=== PATIENT | male | born 1930 | race Caucasian/White ===

== ENCOUNTER → 2016-10-23 | Day surgery (SDC) | payer OTHER ==
[~2016-10-23] VITALS: Ht 175.3 cm; Wt 77.1 kg
[~2016-10-23] MED LIST: ACET-654 PO; AMLO5TAB2 PO; ASPI81TA85 PO; BACT400T PO; CARV3.12 PO; FLOM5CAP PO; FURO40TA2 PO; GLIP-163 PO; GLUCAGON FOR INJ 1 MG VIAL (J1610) IV STA; HYDR25TAB PO; ICAPCAP PO; LEVO25TA5 PO; LISI-542 PO; LR 1,000 ML IV SCH; LYRI100C10 PO; METF500T PO; NORCO, ANEXSIA 5/325MG TABLET (HYDROcodone/ACETAMINOPHEN) PO PRN; OMEP40CA2 PO; ONDANSETRON 4MG/2ML VIAL (J2405) IV PRN; PANTOPRAZOLE 40MG INJ (PROTONIX) (C9113) IV SCH; PLAV75TA38 PO; PRAV1TAB39 PO; PROPOFOL 200 MG/20 ML VIAL As Ordered ONE; ROCURONIUM BROMIDE 50 MG/5 ML VIAL As Ordered ONE; SUCCINYLCHOLINE 100 MG/5 ML SYRINGE (J0330) As Ordered ONE; TAMS0.4C2 PO; fentaNYL 100 MCG/2 ML INJECTION (J3010) As Ordered ONE
[2016-10-23 13:37] LABS: BASO # 0.1 K/mm3 (0.0-0.2); BASO % 0.7 % (0.0-1.0); EOS # 0.2 K/mm3 (0.0-0.50); EOS % 1.8 % (0.0-3.0); LARGE UNSTAINED CELL # 0.1 K/mm3 (0.0-0.4); LARGE UNSTAINED CELL % 1.6 % (0.0-4.0); LYMPH # 0.8 K/mm3 (1.5-4.5); LYMPH % 8.8 % (24.0-44.0); MEAN CORPUSCULAR HEMOGLOBIN 30.4 pg (27.0-33.0); MEAN CORPUSCULAR HGB CONC 33.5 g/dl (32.0-36.5); MEAN CORPUSCULAR VOLUME 90.7 fl (80.0-96.0); MONO # 0.5 K/mm3 (0.0-0.8); MONO % 5.7 % (0.0-5.0); NEUTROPHILS # 7.4 K/mm3 (1.8-7.7); NEUTROPHILS % 81.5 % (36.0-66.0); PLATELET COUNT, AUTOMATED 234 k/mm3 (150-450); RED CELL DISTRIBUTION WIDTH 13.7 % (11.5-14.5)
[2016-10-23 14:08] LABS: CALCIUM LEVEL 8.9 MG/DL (8.8-10.2); CREATININE FOR GFR 1.38 MG/DL (0.70-1.30); GLOMERULAR FILTRATION RATE 52.1 (>35); POTASSIUM SERUM 3.9 MEQ/L (3.5-5.1)
--- NOTE | 2016-10-23 19:27 | ROOR ---
Patient Name: Juan Carlos Reynoso Procedure Date: 10/23/2016 6:13 PM Date of : 1930 Age: 86 Gender: Male Note Status: Finalized Procedure: Upper GI endoscopy Indications: Foreign body in the esophagus Providers: Dragan Catalan Jr, MD Referring MD: Ronan Boyle MD Requesting Provider: Medicines: General Anesthesia Complications: No immediate complications. Procedure: Pre-Anesthesia Assessment: - Prior to the procedure, a History and Physical was performed, and patient medications and allergies were reviewed. The patient is competent. The risks and benefits of the procedure and the sedation options and risks were discussed with the patient. All questions were answered and informed consent was obtained. Patient identification and proposed procedure were verified by the physician and the nurse in the pre-procedure area and in the procedure room. Mental Status Examination: alert and oriented. Airway Examination: normal oropharyngeal airway and neck mobility. Respiratory Examination: clear to auscultation. CV Examination: normal. ASA Grade Assessment: II - A patient with mild systemic disease. After reviewing the risks and benefits, the patient was deemed in satisfactory condition to undergo the procedure. The anesthesia plan was to use moderate sedation / analgesia (conscious sedation). Immediately prior to administration of medications, the patient was re-assessed for adequacy to receive sedatives. The heart rate, respiratory rate, oxygen saturations, blood pressure, adequacy of pulmonary ventilation, and response to care were monitored throughout the procedure. The physical status of the patient was re-assessed after the procedure. The Endoscope was introduced through the mouth, and advanced to the duodenal bulb. The upper GI endoscopy was accomplished without difficulty. The patient tolerated the procedure well. Findings: The upper third of the esophagus and middle third of the esophagus were normal. Food was found at the gastroesophageal junction. Removal of food was accomplished. Many superficial esophageal ulcers with no bleeding were found in the distal esophagus. The gastric fundus, gastric body, gastric antrum, prepyloric region of the stomach and pylorus were normal. Few non-bleeding superficial duodenal ulcers were found in the duodenal bulb. Impression: - Normal upper third of esophagus and middle third of esophagus. - Food at the gastroesophageal junction. Removal was successful. - Non-bleeding esophageal ulcers. - Normal gastric fundus, gastric body, antrum, prepyloric region of the stomach and pylorus. - Multiple non-bleeding duodenal ulcers. Recommendation: - Discharge patient to home (ambulatory). - Return to my office in 1 week. Dragan Catalan MD Dragan Catalan Jr, MD 10/23/2016 7:27:16 PM This report has been signed electronically. Number of Addenda: 0 Note Initiated On: 10/23/2016 6:13 PM Estimated Blood Loss: Estimated blood loss was minimal.
[2016-10-23 21:10] VITALS: BP 190/86
== END | disposition home or self-care (01) ==
LOC: M ED 13:42 → M SDC 18:14
PROVIDERS: ATTEND Surgery
DX: T18.128A Food in esophagus causing other injury, initial encounter (principal); X58.XXXA Exposure to other specified factors, initial encounter; Y92.89 Other specified places as the place of occurrence of the external cause; K22.10 Ulcer of esophagus without bleeding; K26.9 Duodenal ulcer, unspecified as acute or chronic, without hemorrhage or perforation; I25.10 Atherosclerotic heart disease of native coronary artery without angina pectoris; I10 Essential (primary) hypertension; E11.9 Type 2 diabetes mellitus without complications; E07.9 Disorder of thyroid, unspecified; I73.9 Peripheral vascular disease, unspecified; G62.9 Polyneuropathy, unspecified; E78.5 Hyperlipidemia, unspecified; Z88.8 Allergy status to other drugs, medicaments and biological substances; Z79.899 Other long term (current) drug therapy; Z79.02 Long term (current) use of antithrombotics/antiplatelets; Z79.82 Long term (current) use of aspirin; Z87.891 Personal history of nicotine dependence
CPT/HCPCS: 43247; 80048; 85025; 96374; 99284; J0330; J1610; J3010

== ENCOUNTER → 2020-02-07 | Outpatient (CLI) | payer MEDICARE ==
[~2020-02-07] MED LIST changes: -ACET-654 PO; +ACET1TAB55 PO; +AMLO1TAB24 PO; -AMLO5TAB2 PO; -ASPI81TA85 PO; +ASPI81TA86 PO; +CEPH500C PO; +CLOP75TA2 PO; +DOXY100C PO; +FLAG500T PO; +FLOM0.4C39 PO; -FLOM5CAP PO; +GLIP-162 PO; -GLUCAGON FOR INJ 1 MG VIAL (J1610) IV STA; +HYDR-2541 PO; +HYDR-3715 PO; -HYDR25TAB PO; -LR 1,000 ML IV SCH; -LYRI100C10 PO; +MED REC COMMENT; -METF500T PO; +METF500T13 PO; -NORCO, ANEXSIA 5/325MG TABLET (HYDROcodone/ACETAMINOPHEN) PO PRN; -OMEP40CA2 PO; +OMEP40CA97 PO; -ONDANSETRON 4MG/2ML VIAL (J2405) IV PRN; -PANTOPRAZOLE 40MG INJ (PROTONIX) (C9113) IV SCH; +PLAV1TAB2 PO; -PLAV75TA38 PO; +PREG100CA PO; -PROPOFOL 200 MG/20 ML VIAL As Ordered ONE; -ROCURONIUM BROMIDE 50 MG/5 ML VIAL As Ordered ONE; +SERT25TA85 PO; -SUCCINYLCHOLINE 100 MG/5 ML SYRINGE (J0330) As Ordered ONE; +SYNT50TA PO; +XARE2.5T PO; -fentaNYL 100 MCG/2 ML INJECTION (J3010) As Ordered ONE
[2020-02-21 10:14] LABS: BASO # 0.1 10^3/uL (0.0-0.2); BASO % 0.7 % (0.0-1.0); EOS # 0.4 10^3/uL (0.0-0.5); EOS % 6.1 % (0.0-3.0); HEMOGLOBIN 13.4 g/dl (13.5-17.5); LYMPH % 13.9 % (24.0-44.0); MEAN CORPUSCULAR HEMOGLOBIN 29.3 pg (27.0-33.0); MEAN CORPUSCULAR HGB CONC 32.7 g/dl (32.0-36.5); MEAN CORPUSCULAR VOLUME 89.7 fl (80.0-96.0); MONO # 0.7 10^3/uL (0.0-0.8); MONO % 9.8 % (0.0-5.0); NEUTROPHILS % 68.9 % (36.0-66.0); PLATELET COUNT, AUTOMATED 234 10^3/uL (150-450); RED BLOOD COUNT 4.57 10^6/uL (4.30-6.10); WHITE BLOOD COUNT 7.3 10^3/uL (4.0-10.0)
[2020-02-21 10:15] LABS: PROTHROMBIN TIME 13.6 SECONDS (11.8-14.0)
[2020-02-21 10:16] LABS: INR 1.02; PARTIAL THROMBOPLASTIN TIME 49.3 SECONDS (25.0-38.4)
[2020-03-05 21:29] LABS: CREATININE FOR GFR 1.29 MG/DL (0.70-1.30); POTASSIUM SERUM 4.2 MEQ/L (3.5-5.1)
== END ==
LOC: M LAB 14:25
PROVIDERS: ATTEND Surgery Vascular Surgery
DX: Z01.818 Encounter for other preprocedural examination (principal); I70.211 Atherosclerosis of native arteries of extremities with intermittent claudication, right leg; D69.8 Other specified hemorrhagic conditions

== ENCOUNTER 2020-03-24 13:22 | Inpatient (IN) | payer MEDICARE ==
[~2020-03-24] VITALS: Ht 175.3 cm; Wt 71.4 kg
[~2020-03-24 13:22] MED LIST changes: -CEPH500C PO; -CLOP75TA2 PO; -DOXY100C PO; -FLAG500T PO; -GLIP-162 PO; -HYDR-3715 PO; -MED REC COMMENT; -SERT25TA85 PO; -SYNT50TA PO; -XARE2.5T PO
[2020-03-24] MEDS ORDERED: NS 1,000 ML IV SCH (13:54)
--- NOTE | 2020-03-24 14:10 | REPVR ---
PROCEDURE INFORMATION: Exam: XR Chest, 1 View Exam date and time: 03/24/2020 1:38 PM Age: 89 years old Clinical indication: Dyspnea; Additional info: Weakness TECHNIQUE: Imaging protocol: XR of the chest Views: 1 view. COMPARISON: No relevant prior studies available. FINDINGS: Lungs: Unremarkable. No consolidation. Pleural space: Unremarkable. No pleural effusion. No pneumothorax. Heart/Mediastinum: Unremarkable. No cardiomegaly. Bones/joints: Unremarkable. Soft tissues: There is a small nipple shadow on the right. IMPRESSION: No acute findings. Electronically signed by: Yovany Alcala On 03/24/2020 14:10:24 PM
[2020-03-24 14:24] LABS: HEMATOCRIT 40.4 % (42.0-52.0); HEMOGLOBIN 12.7 g/dl (13.5-17.5); MEAN CORPUSCULAR HEMOGLOBIN 26.8 pg (27.0-33.0); MEAN CORPUSCULAR HGB CONC 31.4 g/dl (32.0-36.5); MEAN CORPUSCULAR VOLUME 85.2 fl (80.0-96.0); PLATELET COUNT, AUTOMATED 254 10^3/uL (150-450); RED BLOOD COUNT 4.74 10^6/uL (4.30-6.10); WHITE BLOOD COUNT 3.7 10^3/uL (4.0-10.0)
--- NOTE | 2020-03-24 14:30 | REPVR ---
PROCEDURE INFORMATION: Exam: CT Head Without Contrast Exam date and time: 03/24/2020 2:16 PM Age: 89 years old Clinical indication: Other: General weakness TECHNIQUE: Imaging protocol: Computed tomography of the head without contrast. Radiation optimization: All CT scans at this facility use at least one of these dose optimization techniques: automated exposure control; mA and/or kV adjustment per patient size (includes targeted exams where dose is matched to clinical indication); or iterative reconstruction. COMPARISON: No relevant prior studies available. FINDINGS: Brain: There is moderate central and cortical atrophy and mild small vessel ischemic disease. There is no intracranial hemorrhage. Cerebral ventricles: No ventriculomegaly. Bones/joints: Unremarkable. No acute fracture. Paranasal sinuses: Visualized sinuses are unremarkable. No fluid levels. Mastoid air cells: Visualized mastoid air cells are well aerated. Soft tissues: Unremarkable. IMPRESSION: No acute intracranial abnormality. Electronically signed by: Yovany Alcala On 03/24/2020 14:30:20 PM
[2020-03-24 14:34] LABS: INR 1.31; PARTIAL THROMBOPLASTIN TIME 31.2 SECONDS (24.2-38.5); PROTHROMBIN TIME 16.6 SECONDS (12.5-14.3)
[2020-03-24 14:57] LABS: ALBUMIN 2.2 GM/DL (3.2-5.2); ALT/SGPT 77 U/L (12-78); ANISOCYTOSIS 1+; ATYPICAL LYMPH 2 % (0-5); BILIRUBIN,DIRECT 0.5 MG/DL (0.0-0.2); BILIRUBIN,TOTAL 0.9 MG/DL (0.2-1.0); BLOOD UREA NITROGEN 50 MG/DL (7-18); CALCIUM LEVEL 8.9 MG/DL (8.8-10.2); CARBON DIOXIDE LEVEL 32 MEQ/L (21-32); CHLORIDE LEVEL 92 MEQ/L (98-107); CK-MB VALUE MASS 1.2 NG/ML (<3.6); CPK CREATINE PHOSPHOKINASE 84 U/L (39-308); CREATININE FOR GFR 1.54 MG/DL (0.70-1.30); FREE T4 1.45 NG/DL (0.76-1.46); GLOMERULAR FILTRATION RATE 45.6 (>35); GLUCOSE, FASTING 390 MG/DL (70-100); LIPASE 61 U/L (73-393); LYMPHOCYTES 9 % (16-44); MB/CK RELATIVE INDEX 1.43 (< OR =4); MONOCYTES 3 % (0-5); NEUTROPHILS 83 % (28-66); NT-PRO BNP 4723 PG/ML (<450); POTASSIUM SERUM 3.5 MEQ/L (3.5-5.1); SODIUM LEVEL 136 MEQ/L (136-145); THYROID STIMULATING HORMONE 0.528 uIU/ML (0.358-3.740); TOTAL PROTEIN 6.2 GM/DL (6.4-8.2); TOXIC VACUOLATION 1+; TROPONIN I < 0.02 NG/ML (< 0.10)
[2020-03-24 14:58] LABS: PLATELET ESTIMATE NORMAL (NORMAL)
[2020-03-24] MEDS ORDERED: ACETAMINOPHEN TAB 650MG DOSE (2X325MG) PO ONE (15:45)
[2020-03-24] MEDS ORDERED: CEFEPIME HCL 2 GM in D5W MINI-BAG PLUS 50 ML IV ONE (16:30)
[2020-03-24] MEDS ORDERED: IBUPROFEN 600MG TAB PO ONE (17:30)
[2020-03-24] MEDS ORDERED: NS 2,350 ML in IV 1 EA IV ONE (17:30)
[2020-03-24] MEDS ORDERED: GLUCOSE 4GM CHEW TABLET PO PRN (18:15)
[2020-03-24] MEDS: NS 1,000 ML IV SCH (18:15)
[2020-03-24] MEDS ORDERED: GLUCAGON INJ 1MG VIAL SC PRN (18:15)
[2020-03-24] MEDS ORDERED: DEXTROSE 50% 50 ML SYRINGE IV PRN (18:15)
[2020-03-24] MEDS ORDERED: SYNT50TA PO (18:24)
[2020-03-24] MEDS ORDERED: CLOP75TA2 PO (18:24)
[2020-03-24] MEDS ORDERED: DOXY100C PO (18:24)
[2020-03-24] MEDS ORDERED: XARE2.5T PO (18:24)
[2020-03-24] MEDS ORDERED: MED REC COMMENT (18:25)
--- NOTE | 2020-03-24 18:40 | HPEPDOC ---
[facility] Medical History & Physical Date of Admission Mar 24, 2020 Date of Service: Mar 24, 2020 History and Physical Juan Carlos Reynoso Chief complaint: Who presented to the hospital after expressing 3-4 days of aches and pains History of present illness: Patient is an 89-year-old male with a PMHx of HTN, NIDDM2, PVD (s/p RLE femoral-popliteal bypass), Hx of Chronic RLE digit necrosis, DLP, Hypothyroidism, Neuropathy, BPH, GERD who presented to the hospital after expressing 3-4 days of aches and pains all over his body. Patient denies any chest pain, shortness of breath, palpitations, nausea, vomiting, abdominal pain, constipation, diarrhea or discomfort with urination. He does report a cough with some sputum production. In the emergency room, patient was found to be hypotensive, tachycardic, febrile, and leukopenic. Hospital services called for further evaluation. Denies any changes in weight or appetite Past Medical History: HTN, NIDDM2, PVD (s/p RLE femoral-popliteal bypass), Hx of Chronic RLE digit necrosis, DLP, Hypothyroidism, Neuropathy, BPH, GERD Past Surgical History: Patient reports that his only surgery was femoral-popliteal bypass completed approximately 2 weeks ago across hospital; Dr. Mcdermott Allergies: See below Medications: See below Family History: - Father with a history of lung cancer, bladder cancer, throat cancer Social History: - Denies the use of alcohol or illicit drugs; patient reports that he quit smoking several years ago, was a smoker of 25 years - Denies recent travel or sick contacts - Lives alone, - Occupation; she reports that he used to work at a [employer] Review of Systems: 10 point review of systems complete, all negative otherwise stated in HPI Physical exam: - Vitals: BP [96/55], HR [90], RR [26], Sat [96%RA], Temp [103.5] - General: Lying in bed, Speaking in full sentences, AAOx3 - HEENT: NC, AT, PERRLA - CVS: Tachycardic, +S1S2 - Lungs: Fair air entry bilaterally, No appreciable wheezing / rales / rhonchi - Abdomen: Soft, Non-distended, Non-tender - Extremities: No calf tenderness, right leg with incision on medial aspect of calf, right foot, first, second digit necrosis - Neuro: No focal motor or sensory deficit Assessment and Plan: Sepsis - likely 2/2 Cellulitis/osteomyelitis of RLE - Patient reports that he has had a recent vascular intervention across hospital 2 weeks ago - Patient and daughters have refused transfer to [facility] for further intervention - In the ER, patient was hypotensive, tachycardic and febrile with a T-max of 103.5 - Physical reveals necrosis of the right foot, first and second digit; report a chronic; surrounding erythema, warmth and odor - UA negative - CXR 03/24: No acute findings. - Will check blood cultures, wound cultures, pro-calcitonin lactic acid - Will place patient in ICU - Will start aggressive IV fluid hydration and broad-spectrum antibiotics with vancomycin and Zosyn - Discussed case with podiatry, Dr. Wayne; will be on consultation Reginaldo smiley with RVR - In the emergency room, patient was found to have an elevated heart rate - EKG consistent with atrial fibrillation with RVR, heart rate of 105 - Troponin x1 negative; will continue to trend - Will continue telemetry monitoring - Patients rate has improved with IV fluid hydration - Will start full into regulation with Lovenox, renally adjusted HTN - Patients hypotensive emergency room - Will hold home blood pressure medications; Carvedilol and amlodipine - c/w IV fluid hydration NIDDM2 - Will start ISS PVD (s/p RLE femoral-popliteal bypass) - c/w Plavix; Will hold Xarelto 2.5 mg daily DLP - c/w Pravastatin Hypothyroidism - c/w Levothyroxine Neuropathy - c/w Lyrica BPH - c/w Tamsulosin GI prophylaxis / GERD - Will start Protonix DVT prophylaxis - Will start renal dosed Lovenox (re: Reginaldo smiley) Code status: - DNR / DNI Disposition: - Discuss case with daughter/healthcare proxy Lory Hamilton [phone]; I have updated her about her care plan, addressed all her questions and concerns Critical care time spent; 65 minutes Vital Signs Vital Signs Date Time Temp Pulse Resp B/P (MAP) Pulse Ox O2 Delivery O2 Flow Rate FiO2 03/24/20 18:09 36 03/24/20 18:06 96/55 (69) 03/24/20 17:45 90 03/24/20 17:14 102.5 03/24/20 15:41 36 Room Air Laboratory Data Labs 24H Laboratory Tests 2 03/24/20 14:08: Immature Granulocyte % (Auto) , Neutrophils (%) (Auto) , Nucleated Red Blood Cells % (auto) 0.0, Neutrophils 83H, Band Neutrophils 3, Lymphocytes (Manual) 9L, Monocytes (Manual) 3, Atypical Lymphocytes 2, Red Blood Cell Morphology , Anisocytosis 1+, Toxic Vacuolation 1+, Platelet Estimate NORMAL, Prothrombin Time 16.6H, Prothromb Time International Ratio 1.31, Activated Partial Thromboplast Time 31.2, Anion Gap 12, Glomerular Filtration Rate 45.6, Calcium Level 8.9, Total Bilirubin 0.9, Direct Bilirubin 0.5H, Aspartate Amino Transf (AST/SGOT) 53H, Alanine Aminotransferase (ALT/SGPT) 77, Alkaline Phosphatase 179H, Total Creatine Kinase 84, Creatine Kinase MB 1.2, Creatine Kinase MB Relative Index 1.43, Troponin I < 0.02, PK-Ons-F-Type Natriuretic Peptide 4723H, Total Protein 6.2L, Albumin 2.2L, Albumin/Globulin Ratio 0.6, Lipase 61L, Thyroid Stimulating Hormone (TSH) 0.528, Free Thyroxine 1.45 03/24/20 15:27: Urine Color YELLOW, Urine Appearance HAZY, Urine pH 5.0, Urine Specific [place] 1.009, Urine Protein 1+H, Urine Glucose (UA) 3+H, Urine Ketones NEGATIVE, Urine Blood 1+H, Urine Nitrite NEGATIVE, Urine Bilirubin NEGATIVE, Urine Urobilinogen 0.2, Urine Leukocyte Esterase NEGATIVE, Urine WBC (Auto) 2, Urine RBC (Auto) 3, Urine Hyaline Casts (Auto) 0, Urine Bacteria (Auto) NEGATIVE, Urine Squamous Epithelial Cells 0, Urine Amorphous Sediment SMALLH, Urine Mucus (Auto) SMALL, Urine Sperm (Auto) CBC/BMP Laboratory Tests 03/24/20 14:08 Microbiology Microbiology 03/24/20 Gram Stain - Final, Resulted 03/24/20 Wound Culture, Resulted Pending 03/24/20 Blood Culture, Received Pending Home Medications Scheduled Amlodipine Besylate (Amlodipine Besylate) 5 Mg Tab, 5 MG PO DAILY Carvedilol (Carvedilol) 3.125 Mg Tab, 3.125 MG PO BID Clopidogrel Bisulfate (Clopidogrel) 75 Mg Tablet, 75 MG PO DAILY Doxycycline Hyclate (Doxycycline Hyclate) 100 Mg Capsule, 100 MG PO BID FOR 10 DAYS, FILLED 03/19 Furosemide (Furosemide) 40 Mg Tab, 40 MG PO DAILY Glipizide (Glipizide Xl) 2.5 Mg Tab, 2.5 MG PO DAILY Levothyroxine Sodium (Synthroid) 50 Mcg Tablet, 50 MCG PO DAILY Pravastatin Sodium (Pravachol) 20 Mg Tab, 20 MG PO QHS Pregabalin (Lyrica) 100 Mg Cap, 100 MG PO TID Rivaroxaban (Xarelto) 2.5 Mg Tablet, 2.5 MG PO BID Tamsulosin HCl (Flomax) 0.4 Mg Cap, 0.8 MG PO DAILY Scheduled PRN Acetaminophen (Acetaminophen) 325 Mg Tab, 650 MG PO Q6H PRN for PAIN Miscellaneous Medications [Med Rec Comment] LIST OBTAINED FROM PHARMACY, PT STATES HE TOOK ALL OF HIS MEDS THIS MORNING Allergies Coded Allergies: Unclassified (Verified Adverse Reaction, Mild, legs ache, 03/24/20) patient unsure of what allergies he has ZORAIDA MARTINEZ MD Mar 24, 2020 18:40
[2020-03-24 21:27] LABS: CK-MB VALUE MASS < 1.0 NG/ML (<3.6); CPK CREATINE PHOSPHOKINASE 51 U/L (39-308); MB/CK RELATIVE INDEX 1.96 (< OR =4); TROPONIN I 0.03 NG/ML (< 0.10)
[2020-03-24 21:59] VITALS: BP 126/60
[2020-03-24] MEDS: HumaLOG INSULIN (NovoLOG) PER UNIT SC SCH (22:38)
[2020-03-24] MEDS: ENOXAPARIN 80MG/0.8ML SYRINGE (J1650 PER 10MG) SC SCH (22:38)
[2020-03-24] MEDS: PIPERACILLIN/TAZOBACTAM SOD 3.375 GM in D5W MINI-BAG PLUS 50 ML IV SCH (22:39)
[2020-03-24] MEDS: PRAVASTATIN 20 MG TAB PO SCH (22:39)
[2020-03-24] MEDS: PREGABALIN 100 MG CAP (LYRICA) PO SCH (22:39)
[2020-03-24 23:00] VITALS: BP 105/51
[2020-03-25] VITALS (13 sets, daily range): BP systolic 91–126; BP diastolic 48–59
[2020-03-25] MEDS ORDERED: VANCOMYCIN HCL 750 MG, VIAL MATE ADAPTER 1 EACH in D5W 250 ML IV ONE ×4 (01:00)
[2020-03-25] MEDS: NS 1,000 ML IV SCH (01:40)
[2020-03-25 03:30] LABS: CK-MB VALUE MASS < 1.0 NG/ML (<3.6); CPK CREATINE PHOSPHOKINASE 39 U/L (39-308); MB/CK RELATIVE INDEX 2.56 (< OR =4); TROPONIN I 0.02 NG/ML (< 0.10)
[2020-03-25 04:43] LABS: HEMATOCRIT 31.6 % (42.0-52.0); MEAN CORPUSCULAR HEMOGLOBIN 27.8 pg (27.0-33.0); MEAN CORPUSCULAR HGB CONC 32.6 g/dl (32.0-36.5); MEAN CORPUSCULAR VOLUME 85.4 fl (80.0-96.0); WHITE BLOOD COUNT 11.6 10^3/uL (4.0-10.0)
[2020-03-25 04:53] LABS: HEMOGLOBIN 10.3 g/dl (13.5-17.5); PLATELET COUNT, AUTOMATED 144 10^3/uL (150-450)
[2020-03-25 05:08] LABS: LYMPHOCYTES 6 % (16-44); METAMYELOCYTES 1 % (0-0); MONOCYTES 2 % (0-5); NEUTROPHILS 91 % (28-66)
[2020-03-25 05:09] LABS: PLATELET ESTIMATE NORMAL (NORMAL)
[2020-03-25 05:11] LABS: ANISOCYTOSIS 1+; OVALOCYTES 1+
[2020-03-25] MEDS: PIPERACILLIN/TAZOBACTAM SOD 3.375 GM in D5W MINI-BAG PLUS 50 ML IV SCH ×4 (05:23→22:24)
[2020-03-25 05:32] LABS: ALBUMIN 1.5 GM/DL (3.2-5.2); ALT/SGPT 53 U/L (12-78); BILIRUBIN,TOTAL 0.8 MG/DL (0.2-1.0); BLOOD UREA NITROGEN 48 MG/DL (7-18); CALCIUM LEVEL 7.2 MG/DL (8.8-10.2); CARBON DIOXIDE LEVEL 29 MEQ/L (21-32); CHLORIDE LEVEL 103 MEQ/L (98-107); CREATININE FOR GFR 1.18 MG/DL (0.70-1.30); GLOMERULAR FILTRATION RATE > 60.0 (>35); GLUCOSE, FASTING 413 MG/DL (70-100); MAGNESIUM LEVEL 1.9 MG/DL (1.8-2.4); POTASSIUM SERUM 2.6 MEQ/L (3.5-5.1); SODIUM LEVEL 140 MEQ/L (136-145); TOTAL PROTEIN 4.4 GM/DL (6.4-8.2)
[2020-03-25] MEDS ORDERED: HumaLOG INSULIN (NovoLOG) PER UNIT SC ONE (06:00)
[2020-03-25] MEDS ORDERED: KCL 10MEQ/100ML SWI (KRUN) 10 MEQ in IV 1 EA IV SCH (06:00)
[2020-03-25] MEDS: LEVOTHYROXINE 50MCG TABLET (0.05MG) PO SCH (06:07)
[2020-03-25] MEDS ORDERED: POTASSIUM CHLORIDE 10 MEQ SR TABLET PO ONE ×3 (08:00→16:00)
--- NOTE | 2020-03-25 08:59 | IPNPDOC ---
Text Note Date of Service The patient was seen on 03/25/20. NOTE Subjective: Patient is an 89-year-old male with a PMHx of HTN, NIDDM2, PVD (s/p RLE femoral-popliteal bypass), Hx of Chronic RLE digit necrosis, DLP, Hy pothyroidism, Neuropathy, BPH, GERD who presented to the hospital after experiencing 3-4 days of aches and pains all over his body. Patient was admitted to the hospital service for suspected sepsis secondary to his right lower extremities cellulitis/osteomyelitis. Patient has had first digit necrosis / gangrene. Patient was seen and examined at the bedside. Currently patient reports that he feels fine. Denies any nausea, vomiting, chest pain, shortness breath, palpitations, abdominal pain, diarrhea, or urinary discomfort. Patient reports that he doesn't have much sensation of his right foot. Objective: Vitals (See below) General: Lying in bed, comfortable, AAOx3 HEENT: NC, AT CVS: +S1S2 Lungs: Fair air entry b/l, no appreciable wheezing, rhonchi or rales Abdomen: Soft, nondistended, nontender Extremities: No evidence of edema, - Calf tenderness, right first digit dry gangrene surrounding erythema, warmth and odor Assessment and plan: Sepsis - likely 2/2 Cellulitis/osteomyelitis / Gangrene of R foot 1st digit of RLE - Clinically patient reports that he's feeling better than he did yesterday - Patient and daughters had refused transfer to [facility] for further intervention (recent intervention 2 weeks ago) - Hemodynamically stable / patient has remained afebrile over the last 12 hours - UA negative - Patient has leukocytosis with neutrophil predominance - Lactic acidosis resolved - CXR 03/24: No acute findings. - Blood cultures 03/24: Pending; Wound cultures 03/24: No growth - PCT pending - c/w Normal saline and broad-spectrum antibiotics with vancomycin and Zosyn (Day #2) - Podiatry, Dr. Wayne on consultation; will be taken to OR today for amputation of RLE first digit and possible metatarsal - Will downgrade patient to PCU s/p A. fib with RVR - Upon presentation, patient had an elevated heart rate in the emergency room - Troponin trend 3, has remained negative - EKG consistent with atrial fibrillation with RVR, heart rate of 105 - ECHO complete; report pending - c/w telemetry monitoring - Rate improved without medications - c/w Lovenox, renally adjusted therapeutic dosing s/p Lactic acidosis - Will check lactic acid this morning Hypokalemia - Will supplement via PO route HTN - Patients hypotensive emergency room - Will hold home blood pressure medications; Carvedilol and amlodipine - c/w IV fluid hydration NIDDM2 with Hyperglycemia - c/w ISS - Will add Levemir PVD (s/p RLE femoral-popliteal bypass) - c/w Plavix; Will hold Xarelto 2.5 mg daily - c/w Lovenox DLP - c/w Pravastatin Hypothyroidism - c/w Levothyroxine Neuropathy - c/w Lyrica BPH - c/w Tamsulosin GI prophylaxis / GERD - c/w Protonix DVT prophylaxis - c/w Lovenox therapeutic (re: Reginaldo smiley) Code status: - DNR / DNI Disposition: - Daughter/healthcare proxy Lory Hamilton [phone] VS,Carolyne, I+O VS, Fishbone, I+O Laboratory Tests 03/24/20 14:08 03/25/20 04:22 Vital Signs Date Time Temp Pulse Resp B/P (MAP) Pulse Ox O2 Delivery O2 Flow Rate FiO2 03/25/20 06:00 69 94/53 (67) 95 Room Air 03/25/20 04:00 98.2 18 I&O- Last 24 Hours up to 6 AM 03/25/20 06:00 Intake Total 3605 ml Output Total 800 ml Balance 2805 ml ZORAIDA MARTINEZ MD Mar 25, 2020 08:59
[2020-03-25] MEDS: PREGABALIN 100 MG CAP (LYRICA) PO SCH ×3 (09:18→22:23)
[2020-03-25] MEDS: CLOPIDOGREL 75 MG TAB PO SCH (09:18)
[2020-03-25] MEDS: TAMSULOSIN 0.4 MG CAP PO SCH (09:18)
[2020-03-25] MEDS: LEVEMIR (INSULIN DETEMIR) 1 UNITS/0.01ML SC SCH ×2 (09:19→22:23)
[2020-03-25] MEDS: KCL 40MEQ in NS 1000ML 1,000 ML IV SCH ×2 (09:20→18:52)
[2020-03-25] MEDS: HumaLOG INSULIN (NovoLOG) PER UNIT SC SCH ×4 (09:20→22:22)
[2020-03-25] MEDS ORDERED: NS 1,000 ML IV ONE (10:45)
[2020-03-25 11:08] LABS: HEMOGLOBIN A1c 7.4 %
[2020-03-25] MEDS: ACETAMINOPHEN TAB 650MG DOSE (2X325MG) PO PRN ×3 (11:11→22:31)
[2020-03-25] MEDS: VANCOMYCIN HCL 1,000 MG, VIAL MATE ADAPTER 1 EACH in D5W 250 ML IV SCH (13:40)
[2020-03-25 14:29] LABS: HEMATOCRIT 30.6 % (42.0-52.0); MEAN CORPUSCULAR HEMOGLOBIN 27.9 pg (27.0-33.0); MEAN CORPUSCULAR HGB CONC 32.7 g/dl (32.0-36.5); MEAN CORPUSCULAR VOLUME 85.2 fl (80.0-96.0); PLATELET COUNT, AUTOMATED 126 10^3/uL (150-450); RED BLOOD COUNT 3.59 10^6/uL (4.30-6.10); WHITE BLOOD COUNT 11.5 10^3/uL (4.0-10.0)
[2020-03-25 14:50] LABS: BLOOD UREA NITROGEN 45 MG/DL (7-18); CALCIUM LEVEL 7.3 MG/DL (8.8-10.2); CARBON DIOXIDE LEVEL 28 MEQ/L (21-32); CHLORIDE LEVEL 107 MEQ/L (98-107); CREATININE FOR GFR 1.13 MG/DL (0.70-1.30); GLOMERULAR FILTRATION RATE > 60.0 (>35); GLUCOSE, FASTING 231 MG/DL (70-100); POTASSIUM SERUM 3.2 MEQ/L (3.5-5.1); SODIUM LEVEL 141 MEQ/L (136-145)
--- NOTE | 2020-03-25 15:01 | CR ---
DATE OF CONSULTATION: 03/25/2020 CHIEF COMPLAINT: An 89-year-old white male, seen for evaluation of a necrotic big toe on his left foot. Patient complains of diffuse pain and achiness the last few days. Patient was subsequently admitted to [facility] and is seen for evaluation. PAST MEDICAL HISTORY: 1. Hypertension. 2. Eqj-ipfqkvh-sezijdxjz diabetes mellitus. 3. Peripheral arterial disease. 4. Status post femoral-popliteal bypass on the right side. 5. 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 6. Hypothyroidism. 7. Diabetic neuropathy. 8. Benign prostatic hypertrophy. 9. Gastroesophageal reflux disease. PAST SURGICAL HISTORY: Femoral-popliteal bypass status post 2 weeks ago.. MEDICATIONS: - amlodipine 5 mg by mouth daily - carvedilol 3.125 mg by mouth twice a day - clopidogrel 75 mg daily - doxycycline 100 mg by mouth twice a day - furosemide 40 mg daily - glipizide 2.5 mg daily - levothyroxine 50 mcg by mouth daily - pravastatin 20 mg by mouth every night - Lyrica 100 mg three times a day ALLERGIES: Unknown. PHYSICAL EXAMINATION: Reveals an alert, well-oriented 89-year-old male in no acute distress. Evaluation of his foot reveals a necrotic right hallux with some discharge proximal at the necrosis site. The nails are thick and dystrophic times nine. Patient is missing the hallux nail plate on his right hallux. Dorsalis pedis and posterior tibial pulses are not palpable bilateral. Popliteal pulse is palpable on the left side. It is not palpable on the right side. ASSESSMENT: 1. Necrotic right hallux with infection. 2. Onychomycosis times nine. 3. Diabetes with severe peripheral arterial disease. PLAN: Debride nails manually with electric bur times nine. Patient is scheduled for a 1st ray amputation of the right foot. His questions were answered. Informed consent was obtained and signed by the patient. Thank you for this consultation. GONSALO
[2020-03-25 15:28] LABS: ERYTHROCYTE SEDIMENTATION RATE 51 mm/hr (0-20)
--- NOTE | 2020-03-25 19:08 | ECGEPIP ---
[facility] - ED Test Date: 2020-03-24 Pat Name: PEGGY CARRILLO Department: Room: - Gender: Male Equipment Maint Tech: : [id number] Requested By: FELICIANO Lion Order Number: [id number] Reading MD: Chas Torrez Measurements Intervals [place] Rate: 105 P: [place]: 0 QRS: 57 QRSD: 100 T: 0 QT: 304 QTc: 403 Interpretive Statements ATRIAL FIBRILLATION WITH RAPID VENTRICULAR RESPONSE WITH ABERRANT CONDUCTION OR VENTRICULAR PREMATURE COMPLEXES NONSPECIFIC ST & T-WAVE ABNORMALITY BASELINE ARTIFACT AFFECTS INTERPRETATION RHYTHM/RATE CHANGE COMPARED TO 11/25/14 Electronically Signed on 03-25-2020 19:08:46 EDT by Chas Torrez
[2020-03-25] MEDS: ENOXAPARIN 80MG/0.8ML SYRINGE (J1650 PER 10MG) SC SCH (22:00)
[2020-03-25] MEDS: PRAVASTATIN 20 MG TAB PO SCH (22:23)
[2020-03-26] VITALS (10 sets, daily range): BP systolic 118–157; BP diastolic 57–74
[2020-03-26] MEDS: KCL 40MEQ in NS 1000ML 1,000 ML IV SCH ×2 (04:53→17:29)
[2020-03-26 05:28] LABS: HEMATOCRIT 30.7 % (42.0-52.0); MEAN CORPUSCULAR HEMOGLOBIN 27.9 pg (27.0-33.0); MEAN CORPUSCULAR HGB CONC 32.6 g/dl (32.0-36.5); MEAN CORPUSCULAR VOLUME 85.8 fl (80.0-96.0); PLATELET COUNT, AUTOMATED 125 10^3/uL (150-450); RED BLOOD COUNT 3.58 10^6/uL (4.30-6.10); WHITE BLOOD COUNT 12.3 10^3/uL (4.0-10.0)
[2020-03-26] MEDS: PIPERACILLIN/TAZOBACTAM SOD 3.375 GM in D5W MINI-BAG PLUS 50 ML IV SCH ×4 (05:52→22:28)
[2020-03-26 05:54] LABS: ALBUMIN 1.5 GM/DL (3.2-5.2); ALT/SGPT 65 U/L (12-78); BILIRUBIN,TOTAL 0.5 MG/DL (0.2-1.0); BLOOD UREA NITROGEN 40 MG/DL (7-18); CALCIUM LEVEL 7.5 MG/DL (8.8-10.2); CARBON DIOXIDE LEVEL 25 MEQ/L (21-32); CHLORIDE LEVEL 113 MEQ/L (98-107); CREATININE FOR GFR 0.97 MG/DL (0.70-1.30); GLOMERULAR FILTRATION RATE > 60.0 (>35); GLUCOSE, FASTING 180 MG/DL (70-100); MAGNESIUM LEVEL 1.9 MG/DL (1.8-2.4); POTASSIUM SERUM 4.7 MEQ/L (3.5-5.1); SODIUM LEVEL 142 MEQ/L (136-145); TOTAL PROTEIN 4.5 GM/DL (6.4-8.2)
[2020-03-26 06:00] LABS: EOSINOPHILS 4 % (0-3); LYMPHOCYTES 5 % (16-44); MONOCYTES 1 % (0-5); NEUTROPHILS 89 % (28-66)
[2020-03-26 06:01] LABS: ANISOCYTOSIS 1+; PLATELET ESTIMATE NORMAL (NORMAL)
[2020-03-26 06:03] LABS: POLYCHROMASIA 1+
[2020-03-26] MEDS: LEVOTHYROXINE 50MCG TABLET (0.05MG) PO SCH (06:41)
[2020-03-26] MEDS: VANCOMYCIN HCL 1,000 MG, VIAL MATE ADAPTER 1 EACH in D5W 250 ML IV SCH (07:06)
[2020-03-26] MEDS: HumaLOG INSULIN (NovoLOG) PER UNIT SC SCH ×4 (07:30→20:38)
[2020-03-26] MEDS ORDERED: fentaNYL 100 MCG/2 ML INJECTION (J3010) As Ordered ONE (07:53)
[2020-03-26] MEDS ORDERED: propofoL 500 MG/50 ML VIAL As Ordered ONE (07:53)
[2020-03-26] MEDS ORDERED: LIDOCAINE 2% 100MG/5ML SDV (FOR ANES.) As Ordered ONE (07:54)
--- NOTE | 2020-03-26 08:03 | ECHO ---
DATE OF PROCEDURE: 03/25/2020 Age: 89 Gender: Male Height: 175 cm Weight: 67 kg REFERRING PHYSICIAN: Praful Camacho M.D. INDICATION: Sepsis. MEASUREMENTS: 2D Measurements: Intraventricular septum 0.81 cm Posterior wall 1.11 cm Left ventricle diastole 5.4 cm Aortic root 3.4 cm Left atrium 4.0 cm Inferior vena cava 1.9 cm Doppler Measurements: No aortic stenosis No aortic regurgitation Aortic valve velocity 90.5 cm/s LVOT velocity 65.9 cm/s No mitral regurgitation No mitral stenosis No tricuspid regurgitation No pulmonic regurgitation MITRAL ANNULAR TISSUE DOPPLER E prime septal 4.4 cm/s, E prime lateral 8.4 cm/s DESCRIPTION: Rhythm was atrial fibrillation with controlled ventricular rate. This was a moderately technically difficult echocardiogram. No pericardial effusion. This was a 2D, M-mode, color flow Doppler, and pulsed wave Doppler examination including mitral annular tissue Doppler. CONCLUSIONS: 1. No vegetations identified. 2. Moderately technically difficult echocardiogram. 3. Normal left ventricle internal dimensions and wall thickness. Normal regional left ventricular (LV) wall motion and wall thickening. Normal left ventricular (LV) systolic function. Left ventricular ejection fraction (LVEF) 60% by visual estimate. Unable to determine left ventricular (LV) diastolic function in the setting of atrial fibrillation. 4. Mild mitral annular calcification. No mitral regurgitation. 5. Mild aortic valve sclerosis of a 3-cuspid aortic valve. No aortic regurgitation. MTDD
[2020-03-26] MEDS: PREGABALIN 100 MG CAP (LYRICA) PO SCH ×3 (09:00→20:36)
[2020-03-26] MEDS: CLOPIDOGREL 75 MG TAB PO SCH (09:00)
[2020-03-26] MEDS: LEVEMIR (INSULIN DETEMIR) 1 UNITS/0.01ML SC SCH ×2 (09:00→20:38)
[2020-03-26] MEDS ORDERED: BACITRACIN PWD 50,000 UNITS VIAL As Ordered ONE (10:21)
[2020-03-26] MEDS ORDERED: NEOSPORIN GU IRRIG 20 ML VIAL As Ordered ONE (10:21)
[2020-03-26] MEDS ORDERED: dexameTHASONE 4 MG/ML 1ML VIAL (J1100 PER 1MG) As Ordered ONE (10:21)
[2020-03-26] MEDS ORDERED: LIDOCAINE 2% MDV 20ML VIAL As Ordered ONE (10:21)
[2020-03-26] MEDS ORDERED: BUPIVACAINE HCL 0.5% 30 ML VIAL As Ordered ONE (10:21)
[2020-03-26] MEDS ORDERED: GENTAMICIN SULF 80MG/2ML VIAL As Ordered ONE (10:39)
--- NOTE | 2020-03-26 11:19 | IPNPDOC ---
Text Note Date of Service The patient was seen on 03/26/20. NOTE Subjective: Patient was seen and examined at the bedside. Currently patient reports that he feels fine. Denies any nausea, vomiting, chest pain, shortness breath, palpitations, abdominal pain, diarrhea, or urinary discomfort. right toe foul smell. Objective: Vitals (See below) General: Lying in bed, comfortable, AAOx3 HEENT: NC, AT, moist mucous membranes, anicteric eyes. CVS: +S1S2, Regular, normal rate, No Rub/ mumur or gallop Lungs: Fair air entry b/l, no appreciable wheezing, rhonchi or rales Abdomen: Soft, nondistended, nontender, bowel sounds normal. Extremities: No evidence of edema, - Calf tenderness, right first digit dry gangrene surrounding erythema, warmth and odor Labs and radiology reviewed Assessment and plan: Patient is an 89-year-old male with a PMHx of HTN, NIDDM2, PVD (s/p RLE femoral-popliteal bypass), Hx of Chronic RLE digit ne crosis, DLP, Hypothyroidism, Neuropathy, BPH, GERD who presented to the hospital after experiencing 3-4 days of aches and pains all over his body. Patient was admitted to the hospital service for sepsis secondary to his right lower extremities cellulitis/osteomyelitis. Patient has had first digit necrosis / gangrene. Sepsis due to Cellulitis/osteomyelitis and Gangrene of R foot 1st digit Has PAD. Patient and daughters had refused transfer to [facility] for further intervention (recent intervention 2 weeks ago) Blood cultures 03/24, 1/2 streptococcus agalactiae Wound cultures 03/24: MSSA and Streptococcus agalactiae c/w Normal saline and broad-spectrum antibiotics with vancomycin and Zosyn (Day #3) Podiatry, Dr. Wayne on consultation; will be taken to OR today for amputation of RLE first digit and possible metatarsal PT/OT after surgery. s/p A. fib with RVR Upon presentation, patient had an elevated heart rate in the emergency room Troponin trend 3, has remained negative EKG consistent with atrial fibrillation with RVR, heart rate of 105 ECHO complete; report pending c/w Lovenox, renally adjusted therapeutic dosing s/p Lactic acidosis Hypokalemia replaced HTN was hypotensive on presentation hold home blood pressure medications; Carvedilol and amlodipine c/w IV fluid NIDDM2 with Hyperglycemia ISS, lispro Levemir PVD s/p RLE femoral-popliteal bypass Plavix; Will hold Xarelto 2.5 mg daily Lovenox DLP Pravastatin Hypothyroidism Levothyroxine Neuropathy Lyrica BPH Tamsulosin GI prophylaxis / GERD Protonix DVT prophylaxis Lovenox therapeutic (re: Reginaldo smiley), will restart xarelto after surgery Code status: DNR / DNI Disposition: Daughter/healthcare proxy Lory Hamilton [phone] VS,Jaclyn, I+O VS, Carolyne, I+O Laboratory Tests 03/25/20 13:47 03/26/20 04:59 Vital Signs Date Time Temp Pulse Resp B/P (MAP) Pulse Ox O2 Delivery O2 Flow Rate FiO2 03/26/20 08:00 97.2 71 20 133/60 (84) 98 Room Air I&O- Last 24 Hours up to 6 AM 03/26/20 06:00 Intake Total 3205 ml Output Total 1450 ml Balance 1755 ml TALA ANGELO MD Mar 26, 2020 11:19
[2020-03-26] MEDS ORDERED: LR 1,000 ML IV SCH (12:00)
[2020-03-26] MEDS ORDERED: fentaNYL 100 MCG/2 ML INJECTION (J3010) IV PRN (12:00)
[2020-03-26] MEDS ORDERED: ONDANSETRON 4MG/2ML VIAL IV PRN (12:00)
[2020-03-26] MEDS ORDERED: oxyCODONE 5MG TAB PO PRN (12:00)
[2020-03-26 12:15] LABS: VANCOMYCIN RANDOM 13.3 UG/ML
[2020-03-26] MEDS: TAMSULOSIN 0.4 MG CAP PO SCH (12:33)
[2020-03-26] MEDS: ACETAMINOPHEN TAB 650MG DOSE (2X325MG) PO PRN (17:27)
[2020-03-26] MEDS ORDERED: PILL CUTTER 1 EACH XX PRN (18:15)
--- NOTE | 2020-03-26 19:50 | REPVR ---
PROCEDURE INFORMATION: Exam: US Duplex Right Upper Extremity Veins, Limited Exam date and time: 03/26/2020 7:39 PM Age: 89 years old Clinical indication: Arm, lower; Right; Patient HX: Patient states RT elbow pain; Additional info: Arm swelling TECHNIQUE: Imaging protocol: Real-time Duplex ultrasound of the Right Upper Extremity with 2-D marrero scale, color Doppler flow and spectral waveform analysis with image documentation. Limited exam focused on the right upper extremity veins. COMPARISON: No relevant prior studies available. FINDINGS: Right deep veins: Unremarkable. Axillary and brachial veins are patent throughout without thrombus. Normal Doppler waveforms. Normal compressibility and/or augmentation response. Visualized internal jugular and subclavian veins are patent. Right superficial veins: Unremarkable. Visualized cephalic and basilic veins are patent without thrombus. Soft tissues: Unremarkable. IMPRESSION: No sonographic evidence of deep vein thrombosis. Electronically signed by: Angelo Macedo On 03/26/2020 19:49:26 PM
[2020-03-26] MEDS: RIVAROXABAN 10 MG TAB (XARELTO) PO SCH (20:36)
[2020-03-26] MEDS: PRAVASTATIN 20 MG TAB PO SCH (20:36)
[2020-03-26] MEDS: CARVedilol 3.125 MG TAB PO SCH (20:37)
[2020-03-27 01:14] VITALS: BP 121/64
[2020-03-27 06:00] VITALS: BP 121/61
[2020-03-27] MEDS: LEVOTHYROXINE 50MCG TABLET (0.05MG) PO SCH (06:28)
[2020-03-27] MEDS: PIPERACILLIN/TAZOBACTAM SOD 3.375 GM in D5W MINI-BAG PLUS 50 ML IV SCH ×4 (06:28→23:19)
[2020-03-27 08:06] LABS: ALBUMIN 1.5 GM/DL (3.2-5.2); ALT/SGPT 50 U/L (12-78); BILIRUBIN,TOTAL 0.5 MG/DL (0.2-1.0); BLOOD UREA NITROGEN 24 MG/DL (7-18); CALCIUM LEVEL 7.7 MG/DL (8.8-10.2); CARBON DIOXIDE LEVEL 29 MEQ/L (21-32); CHLORIDE LEVEL 110 MEQ/L (98-107); CREATININE FOR GFR 0.83 MG/DL (0.70-1.30); GLOMERULAR FILTRATION RATE > 60.0 (>35); GLUCOSE, FASTING 151 MG/DL (70-100); POTASSIUM SERUM 4.3 MEQ/L (3.5-5.1); SODIUM LEVEL 144 MEQ/L (136-145); TOTAL PROTEIN 4.4 GM/DL (6.4-8.2)
[2020-03-27 08:07] LABS: BASO % 0.1 % (0.0-1.0); EOS # 0.5 10^3/uL (0.0-0.5); EOS % 3.6 % (0.0-3.0); HEMOGLOBIN 10.2 g/dl (13.5-17.5); LYMPH # 1.1 10^3/uL (1.5-5.0); LYMPH % 7.5 % (24.0-44.0); MEAN CORPUSCULAR HEMOGLOBIN 27.3 pg (27.0-33.0); MEAN CORPUSCULAR HGB CONC 31.9 g/dl (32.0-36.5); MEAN CORPUSCULAR VOLUME 85.6 fl (80.0-96.0); MONO % 6.6 % (0.0-5.0); NEUTROPHILS # 11.5 10^3/uL (1.5-8.5); NEUTROPHILS % 79.9 % (36.0-66.0); PLATELET COUNT, AUTOMATED 139 10^3/uL (150-450); RED BLOOD COUNT 3.74 10^6/uL (4.30-6.10); WHITE BLOOD COUNT 14.4 10^3/uL (4.0-10.0)
[2020-03-27] MEDS: LEVEMIR (INSULIN DETEMIR) 1 UNITS/0.01ML SC SCH ×2 (10:10→20:22)
[2020-03-27] MEDS: HumaLOG INSULIN (NovoLOG) PER UNIT SC SCH ×4 (10:11→20:13)
[2020-03-27] MEDS: FUROSEMIDE 40 MG TAB PO SCH (10:12)
[2020-03-27] MEDS: PREGABALIN 100 MG CAP (LYRICA) PO SCH ×3 (10:12→20:21)
[2020-03-27] MEDS: CLOPIDOGREL 75 MG TAB PO SCH (10:12)
[2020-03-27] MEDS: ACETAMINOPHEN TAB 650MG DOSE (2X325MG) PO PRN (10:12)
[2020-03-27] MEDS: CARVedilol 3.125 MG TAB PO SCH ×2 (10:15→20:22)
[2020-03-27] MEDS: RIVAROXABAN 10 MG TAB (XARELTO) PO SCH ×2 (10:15→20:20)
[2020-03-27] MEDS: TAMSULOSIN 0.4 MG CAP PO SCH (10:16)
--- NOTE | 2020-03-27 11:30 | IPNPDOC ---
Text Note Date of Service The patient was seen on 03/27/20. NOTE Subjective: Patient was seen and examined at the bedside. He complains of back pain and is very weak. Says unable to roll in bed even. Urinary incontinence. Noted to have 2 pressure ulcers on back and 1 blister. Objective: Vitals (See below) General: Lying in bed, AAOx3 HEENT: NC, AT, moist mucous membranes, anicteric eyes. CVS: +S1S2 Regular, normal rate, No Rub/ murmur or gallop Lungs: Fair air entry b/l, no appreciable wheezing, rhonchi or rales Abdomen: Soft, nondistended, nontender, bowel sounds normal. Extremities: No evidence of edema, - Calf tenderness, right first digit dry gangrene surrounding erythema, warmth and odor Skin: sacrum/ coccyx stage 2 pressure ulcer with deep tissue injury in part of it 8 cm x 5 cm, stage 2 ulcer on the left buttock laterally with granulation tissues 5 cm x 4 cm was ablister before which has now broken, and a small fluid filled blister on the left buttock above the stage 2 pressure injury. Labs and radiology reviewed Assessment and plan: Patient is an 89-year-old male with a PMHx of HTN, NIDDM2, PVD (s/p RLE femoral-popliteal bypass), Hx of Chronic RLE digit necrosis, DLP, Hypothyroidism, Neuropathy, BPH, GERD who presented to the hospital after experiencing 3-4 days of aches and pains all over his body. Patient was admitted to the hospital service for sepsis secondary to his right lower extremities cellulitis/osteomyelitis. Patient has had first digit necrosis / gangrene. Sepsis due to Cellulitis/osteomyelitis and Gangrene of R foot 1st digit Has PAD. Patient and daughters had refused transfer to [facility] for further intervention (recent intervention 2 weeks ago) Blood cultures 03/24, 06/12 streptococcus agalactiae Wound cultures 03/24: MSSA and Streptococcus agalactiae Zosyn s/p amputation of RLE first digit on 03/26 PT/OT Sacral/ cocyx pressure ulcer present on admission Blisters and new pressure ulcer onthe left buttock which was a blister before. frequent repositioning. optifoam dressing. Wound consult on Sunday. s/p A. fib with RVR Now rate controlled. ECHO complete; report pending restarted xarelto. s/p Lactic acidosis Hypokalemia replaced HTN was hypotensive on presentation, now normal coreg restarted. Lasix started hold amlodipine NIDDM2 with Hyperglycemia ISS, lispro Levemir PVD s/p RLE femoral-popliteal bypass Plavix , xarelto DLP Pravastatin Hypothyroidism Levothyroxine Back pain/ Neuropathy Lyrica, tylenol, toradol. BPH Tamsulosin GI prophylaxis / GERD Protonix DVT prophylaxis : xarelto Code status: DNR / DNI Disposition: PT evaluation Daughter/healthcare proxy Lory Hamilton [phone] VS,Fishbone, I+O VS, Fishbone, I+O Laboratory Tests 03/27/20 06:58 Vital Signs Date Time Temp Pulse Resp B/P (MAP) Pulse Ox O2 Delivery O2 Flow Rate FiO2 03/27/20 10:15 75 121/61 03/27/20 06:00 98.4 18 94 Room Air I&O- Last 24 Hours up to 6 AM0 03/27/20 06:00 Intake Total 1350 ml Output Total 1575 ml Balance -225 ml TALA ANGELO MD Mar 27, 2020 11:30
[2020-03-27] MEDS: KETOROLAC 30 MG/ML 1ML VIAL IV PRN (11:57)
[2020-03-27 14:00] VITALS: BP_SYST 119; BP_SYST 93; BP_DIAS 54; BP_DIAS 61
[2020-03-27] MEDS: PRAVASTATIN 20 MG TAB PO SCH (20:20)
[2020-03-27] MEDS: ACETAMINOPHEN 500 MG TAB PO SCH (20:23)
[2020-03-27 22:00] VITALS: BP 140/52
[2020-03-28] MEDS: PIPERACILLIN/TAZOBACTAM SOD 3.375 GM in D5W MINI-BAG PLUS 50 ML IV SCH ×4 (05:56→22:13)
[2020-03-28 06:00] VITALS: BP 147/67
[2020-03-28] MEDS: LEVOTHYROXINE 50MCG TABLET (0.05MG) PO SCH (06:04)
[2020-03-28 07:22] LABS: BASO % 0.2 % (0.0-1.0); EOS # 0.6 10^3/uL (0.0-0.5); EOS % 4.2 % (0.0-3.0); HEMATOCRIT 30.7 % (42.0-52.0); HEMOGLOBIN 9.8 g/dl (13.5-17.5); LYMPH # 0.9 10^3/uL (1.5-5.0); MEAN CORPUSCULAR HEMOGLOBIN 27.2 pg (27.0-33.0); MEAN CORPUSCULAR HGB CONC 31.9 g/dl (32.0-36.5); MEAN CORPUSCULAR VOLUME 85.3 fl (80.0-96.0); MONO # 0.7 10^3/uL (0.0-0.8); MONO % 5.7 % (0.0-5.0); NEUTROPHILS # 10.6 10^3/uL (1.5-8.5); NEUTROPHILS % 81.2 % (36.0-66.0); PLATELET COUNT, AUTOMATED 138 10^3/uL (150-450); WHITE BLOOD COUNT 13.1 10^3/uL (4.0-10.0)
[2020-03-28 07:44] LABS: ALBUMIN 1.5 GM/DL (3.2-5.2); ALT/SGPT 67 U/L (12-78); BILIRUBIN,TOTAL 0.4 MG/DL (0.2-1.0); BLOOD UREA NITROGEN 25 MG/DL (7-18); CALCIUM LEVEL 7.4 MG/DL (8.8-10.2); CARBON DIOXIDE LEVEL 29 MEQ/L (21-32); CHLORIDE LEVEL 104 MEQ/L (98-107); CREATININE FOR GFR 1.02 MG/DL (0.70-1.30); GLOMERULAR FILTRATION RATE > 60.0 (>35); GLUCOSE, FASTING 236 MG/DL (70-100); POTASSIUM SERUM 4.2 MEQ/L (3.5-5.1); SODIUM LEVEL 139 MEQ/L (136-145); TOTAL PROTEIN 4.3 GM/DL (6.4-8.2)
[2020-03-28] MEDS: PREGABALIN 100 MG CAP (LYRICA) PO SCH ×3 (08:23→22:11)
[2020-03-28] MEDS: ACETAMINOPHEN 500 MG TAB PO SCH ×2 (08:23→22:12)
[2020-03-28] MEDS: TAMSULOSIN 0.4 MG CAP PO SCH (08:23)
[2020-03-28] MEDS: CLOPIDOGREL 75 MG TAB PO SCH (08:23)
[2020-03-28] MEDS: CARVedilol 3.125 MG TAB PO SCH ×2 (08:24→22:14)
[2020-03-28] MEDS: FUROSEMIDE 40 MG TAB PO SCH (08:24)
[2020-03-28] MEDS: RIVAROXABAN 10 MG TAB (XARELTO) PO SCH ×2 (08:24→22:11)
[2020-03-28] MEDS: HumaLOG INSULIN (NovoLOG) PER UNIT SC SCH ×4 (08:25→21:00)
[2020-03-28] MEDS: LEVEMIR (INSULIN DETEMIR) 1 UNITS/0.01ML SC SCH ×2 (08:25→22:13)
[2020-03-28] MEDS: KETOROLAC 30 MG/ML 1ML VIAL IV PRN (11:06)
--- NOTE | 2020-03-28 11:08 | IPNPDOC ---
Text Note Date of Service The patient was seen on 03/28/20. NOTE Subjective: Patient was seen and examined at the bedside. He complains of back pain and is very weak. Says unable to roll in bed even. Urinary incontinence. Noted to have 2 pressure ulcers on back and 1 blister. Objective: Vitals (See below) General: Lying in bed, AAOx3 HEENT: NC, AT, moist mucous membranes, anicteric eyes. CVS: +S1S2 Regular, normal rate, No Rub/ murmur or gallop Lungs: Fair air entry b/l, no appreciable wheezing, rhonchi or rales Abdomen: Soft, nondistended, nontender, bowel sounds normal. Extremities: No evidence of edema, - Calf tenderness, right first digit dry gangrene surrounding erythema, warmth and odor Skin: sacrum/ coccyx stage 2 pressure ulcer with deep tissue injury in part of it 8 cm x 5 cm, stage 2 ulcer on the left buttock laterally with granulation tissues 5 cm x 4 cm was ablister before which has now broken, and a small fluid filled blister on the left buttock above the stage 2 pressure injury. Labs and radiology reviewed Assessment and plan: Patient is an 89-year-old male with a PMHx of HTN, NIDDM2, PVD (s/p RLE femoral-popliteal bypass), Hx of Chronic RLE digit necrosis, DLP, Hypothyroidism, Neuropathy, BPH, GERD who presented to the hospital after experiencing 3-4 days of aches and pains all over his body. Patient was admitted to the hospital service for sepsis secondary to his right lower extremities cellulitis/osteomyelitis. Patient has had first digit necrosis / gangrene. Sepsis due to Cellulitis/osteomyelitis and Gangrene of R foot 1st digit Has PAD. Patient and daughters had refused transfer to [facility] for further intervention (recent intervention 2 weeks ago) Blood cultures 03/24, 06/12 streptococcus agalactiae Wound cultures 03/24: MSSA and Streptococcus agalactiae Zosyn s/p amputation of RLE first digit on 03/26 PT/OT Sacral/ cocyx pressure ulcer present on admission Blisters and new pressure ulcer onthe left buttock which was a blister before. frequent repositioning. optifoam dressing. Wound consult on Sunday. s/p A. fib with RVR Now rate controlled. ECHO complete; report pending restarted xarelto. s/p Lactic acidosis Hypokalemia replaced HTN was hypotensive on presentation, now normal coreg restarted. Lasix started hold amlodipine NIDDM2 with Hyperglycemia ISS, lispro Levemir PVD s/p RLE femoral-popliteal bypass Plavix , xarelto DLP Pravastatin Hypothyroidism Levothyroxine Back pain/ Neuropathy Lyrica, tylenol, toradol. BPH Tamsulosin GI prophylaxis / GERD Protonix DVT prophylaxis : xarelto Code status: DNR / DNI Disposition: PT evaluation Daughter/healthcare proxy Lory Hamilton [phone] VS,Fishbone, I+O VS, Fishbone, I+O Laboratory Tests 03/28/20 06:41 Vital Signs Date Time Temp Pulse Resp B/P (MAP) Pulse Ox O2 Delivery O2 Flow Rate FiO2 03/28/20 08:24 73 147/67 03/28/20 06:00 97.8 18 97 Room Air I&O- Last 24 Hours up to 6 AM0 03/28/20 06:00 Intake Total 1100 ml Output Total 1650 ml Balance -550 ml TALA ANGELO MD Mar 28, 2020 11:08
[2020-03-28 14:00] VITALS: BP 128/49
[2020-03-28 22:00] VITALS: BP 130/50
[2020-03-28] MEDS: PRAVASTATIN 20 MG TAB PO SCH (22:12)
[2020-03-29] MEDS: PIPERACILLIN/TAZOBACTAM SOD 3.375 GM in D5W MINI-BAG PLUS 50 ML IV SCH ×4 (05:52→23:43)
[2020-03-29] MEDS: KETOROLAC 30 MG/ML 1ML VIAL IV PRN ×2 (05:52→17:20)
[2020-03-29] MEDS: LEVOTHYROXINE 50MCG TABLET (0.05MG) PO SCH (05:52)
[2020-03-29 05:53] LABS: BASO % 0.2 % (0.0-1.0); EOS # 0.6 10^3/uL (0.0-0.5); EOS % 4.4 % (0.0-3.0); HEMATOCRIT 28.4 % (42.0-52.0); HEMOGLOBIN 9.1 g/dl (13.5-17.5); LYMPH % 7.8 % (24.0-44.0); MEAN CORPUSCULAR VOLUME 84.3 fl (80.0-96.0); MONO # 0.8 10^3/uL (0.0-0.8); MONO % 6.1 % (0.0-5.0); NEUTROPHILS # 10.4 10^3/uL (1.5-8.5); NEUTROPHILS % 79.6 % (36.0-66.0); PLATELET COUNT, AUTOMATED 193 10^3/uL (150-450); RED BLOOD COUNT 3.37 10^6/uL (4.30-6.10)
[2020-03-29 06:00] VITALS: BP 146/62
[2020-03-29 06:23] LABS: ALBUMIN 1.4 GM/DL (3.2-5.2); ALT/SGPT 51 U/L (12-78); BILIRUBIN,TOTAL 0.4 MG/DL (0.2-1.0); BLOOD UREA NITROGEN 23 MG/DL (7-18); CALCIUM LEVEL 7.2 MG/DL (8.8-10.2); CARBON DIOXIDE LEVEL 31 MEQ/L (21-32); CHLORIDE LEVEL 103 MEQ/L (98-107); CREATININE FOR GFR 1.03 MG/DL (0.70-1.30); GLOMERULAR FILTRATION RATE > 60.0 (>35); GLUCOSE, FASTING 179 MG/DL (70-100); POTASSIUM SERUM 4.1 MEQ/L (3.5-5.1); SODIUM LEVEL 140 MEQ/L (136-145); TOTAL PROTEIN 4.4 GM/DL (6.4-8.2)
[2020-03-29] MEDS: HumaLOG INSULIN (NovoLOG) PER UNIT SC SCH ×4 (07:48→20:39)
[2020-03-29] MEDS: CLOPIDOGREL 75 MG TAB PO SCH (08:08)
[2020-03-29] MEDS: TAMSULOSIN 0.4 MG CAP PO SCH (08:08)
[2020-03-29] MEDS: PREGABALIN 100 MG CAP (LYRICA) PO SCH ×3 (08:08→20:37)
[2020-03-29] MEDS: FUROSEMIDE 40 MG TAB PO SCH (08:09)
[2020-03-29] MEDS: RIVAROXABAN 10 MG TAB (XARELTO) PO SCH ×2 (08:09→20:37)
[2020-03-29] MEDS: LEVEMIR (INSULIN DETEMIR) 1 UNITS/0.01ML SC SCH ×2 (08:10→20:39)
[2020-03-29] MEDS: CARVedilol 3.125 MG TAB PO SCH ×2 (08:13→20:38)
--- NOTE | 2020-03-29 08:17 | RO ---
DATE OF OPERATION: 03/26/2020 PREOPERATIVE DIAGNOSIS: Necrotic right hallux. POSTOPERATIVE DIAGNOSIS: Necrotic right hallux. PROCEDURE: Amputation, right hallux, at the metatarsophalangeal joint, right foot. HEMOSTASIS: None utilized. ESTIMATED BLOOD LOSS: Less than 1 mL. IRRIGATION: One liter of dilute gentamicin solution with a low-pressure pulse lavage system. DESCRIPTION OF OPERATION: On 03/26/2020 this 89-year-old white male was taken from his hospital room to the operating room and placed on the operating table in the supine position. Following the induction of intravenous (IV) sedation and local and regional anesthesia, the right lower extremity was prepped and draped in the usual aseptic manner. Attention was directed to the patient's right foot, where a racket-shaped incision was placed on the base of the patient's right hallux. Dissection was carried straight to bone. The metatarsophalangeal joint was disarticulated, and the toe was sent for aerobic and anaerobic culture. All bleeders as encountered were electrocoagulated. The skin was closed with 3-0 nylon suture in a simple interrupted-type fashion. Compressive bandages were applied consisting of Adaptic, 4 x 4's, 4 x 4 splints, Henrik, Kerlix, and Coban under no compression. Patient having apparently tolerated the procedure well was taken from the operating room (OR) to the recovery room for further monitoring by the anesthesia department. Postoperative instructions were given upon discharge. GONSALO
[2020-03-29] MEDS: NORCO, ANEXSIA 5/325MG TABLET (HYDROcodone/ACETAMINOPHEN) PO SCH ×2 (08:38→20:38)
[2020-03-29 13:37] VITALS: BP 121/50
[2020-03-29] MEDS: ACETAMINOPHEN 500 MG TAB PO PRN (15:34)
--- NOTE | 2020-03-29 16:40 | IPNPDOC ---
Text Note Date of Service The patient was seen on 03/29/20. NOTE Subjective: Patient had refused to work with PT yesterday. However today he appears more motivated to work with PT. Does not complain of any significant back pain today. Objective: Vitals (See below) General: Lying in bed, AAOx3 HEENT: NC, AT, moist mucous membranes, anicteric eyes. CVS: +S1S2 Regular, normal rate, No Rub/ murmur or gallop Lungs: Fair air entry b/l, no appreciable wheezing, rhonchi or rales Abdomen: Soft, nondistended, nontender, bowel sounds normal. Extremities: No evidence of edema, - Calf tenderness, right first digit dry gangrene surrounding erythema, warmth and odor Skin: sacrum/ coccyx stage 2 pressure ulcer with deep tissue injury in part of it 8 cm x 5 cm, stage 2 ulcer on the left buttock laterally with granulation tissues 5 cm x 4 cm was ablister before which has now broken, and a small fluid filled blister on the left buttock above the stage 2 pressure injury. Labs and radiology reviewed Assessment and plan: Patient is an 89-year-old male with a PMHx of HTN, NIDDM2, PVD (s/p RLE femoral-popliteal bypass), Hx of Chronic RLE digit necrosis, DLP, Hypothyroidism, Neuropathy, BPH, GERD who presented to the hospital after experiencing 3-4 days of aches and pains all over his body. Patient was admitted to the hospital service for sepsis secondary to his right lower extremities cellulitis/osteomyelitis. Patient has had first digit necrosis / gangrene. Sepsis due to Cellulitis/osteomyelitis and Gangrene of R foot 1st digit Has PAD. Patient and daughters had refused transfer to [facility] for further int ervention (recent intervention 2 weeks ago) Blood cultures 03/24, 06/12 streptococcus agalactiae Wound cultures 03/24: MSSA and Streptococcus agalactiae Zosyn. s/p amputation of RLE first digit on 03/26 PT/OT Sacral/ cocyx pressure ulcer present on admission Blisters and new pressure ulcer onthe left buttock which was a blister before. frequent repositioning. optifoam dressing. Wound consult on Sunday. s/p A. fib with RVR Now rate controlled. ECHO complete; report pending restarted xarelto. s/p Lactic acidosis Hypokalemia replaced HTN was hypotensive on presentation, now normal coreg restarted. Lasix started hold amlodipine NIDDM2 with Hyperglycemia ISS, lispro Levemir PVD s/p RLE femoral-popliteal bypass Plavix , xarelto DLP Pravastatin Hypothyroidism Levothyroxine Back pain/ Neuropathy Lyrica, tylenol, toradol. norco. BPH Tamsulosin GI prophylaxis / GERD Protonix DVT prophylaxis : xarelto Code status: DNR / DNI Disposition: PT evaluation. i suspect he will need continued rehab on discharge. Daughter/healthcare proxy Lory Hamilton [phone] VS,Jaclyn, I+O VS, Jaclyn, I+O Laboratory Tests 03/29/20 05:25 Vital Signs Date Time Temp Pulse Resp B/P (MAP) Pulse Ox O2 Delivery O2 Flow Rate FiO2 03/29/20 06:00 97.8 70 18 146/62 (90) 96 Room Air I&O- Last 24 Hours up to 6 AM 03/29/20 07:00 Intake Total 2040 ml Output Total 2500 ml Balance -460 ml TALA ANGELO MD Mar 29, 2020 07:52
[2020-03-29] MEDS: PRAVASTATIN 20 MG TAB PO SCH (20:37)
[2020-03-29 22:00] VITALS: BP 114/50
[2020-03-30 06:15] LABS: BASO % 0.1 % (0.0-1.0); EOS # 0.6 10^3/uL (0.0-0.5); EOS % 4.2 % (0.0-3.0); HEMATOCRIT 28.7 % (42.0-52.0); HEMOGLOBIN 9.2 g/dl (13.5-17.5); LYMPH # 0.9 10^3/uL (1.5-5.0); LYMPH % 6.7 % (24.0-44.0); MEAN CORPUSCULAR HEMOGLOBIN 27.4 pg (27.0-33.0); MEAN CORPUSCULAR HGB CONC 32.1 g/dl (32.0-36.5); MEAN CORPUSCULAR VOLUME 85.4 fl (80.0-96.0); MONO # 0.7 10^3/uL (0.0-0.8); MONO % 5.3 % (0.0-5.0); NEUTROPHILS # 11.1 10^3/uL (1.5-8.5); PLATELET COUNT, AUTOMATED 239 10^3/uL (150-450); RED BLOOD COUNT 3.36 10^6/uL (4.30-6.10); WHITE BLOOD COUNT 13.5 10^3/uL (4.0-10.0)
[2020-03-30] MEDS: LEVOTHYROXINE 50MCG TABLET (0.05MG) PO SCH (06:29)
[2020-03-30] MEDS: PIPERACILLIN/TAZOBACTAM SOD 3.375 GM in D5W MINI-BAG PLUS 50 ML IV SCH (06:29)
[2020-03-30] MEDS: ACETAMINOPHEN 500 MG TAB PO PRN ×2 (06:30→15:06)
[2020-03-30 06:38] LABS: ALBUMIN 1.4 GM/DL (3.2-5.2); ALT/SGPT 47 U/L (12-78); BILIRUBIN,TOTAL 0.3 MG/DL (0.2-1.0); BLOOD UREA NITROGEN 23 MG/DL (7-18); CARBON DIOXIDE LEVEL 33 MEQ/L (21-32); CHLORIDE LEVEL 101 MEQ/L (98-107); CREATININE FOR GFR 1.04 MG/DL (0.70-1.30); GLOMERULAR FILTRATION RATE > 60.0 (>35); GLUCOSE, FASTING 149 MG/DL (70-100); POTASSIUM SERUM 4.2 MEQ/L (3.5-5.1); SODIUM LEVEL 138 MEQ/L (136-145); TOTAL PROTEIN 5.3 GM/DL (6.4-8.2)
--- NOTE | 2020-03-30 07:13 | IPN ---
DATE: 03/29/2020 CHIEF COMPLAINT: This 89-year-old male was seen today for an evaluation status post amputation of the right hallux. The patient is alert and well-oriented today and talking and eating breakfast at the bedside. He denies pain of his foot and denies shortness of breath or chest pain. The dressing is intact on the right foot. The dressing was removed. The incision is well-coapted and maintained. There is reactional erythema seen but no discharge from the wound site. Culture was reviewed revealing growth of Staph aureus and Strep Group B. The patients laboratory studies reveal a white count to be 13.0, C-reactive protein not performed. ASSESSMENT: Healing well, status post amputation of right hallux. PLAN: A dry sterile dressing was applied. The patient is presently on Zosyn for coverage of his bacteria. When the patients culture and sensitivity becomes available and the patient is cleared medically he can be discharged on appropriate antibiotics and will be seen in my office for follow-up. GONSALO
--- NOTE | 2020-03-30 07:19 | CR ---
ADVANCED WOUND CARE CONSULTATION DATE OF CONSULTATION: 03/29/2020 REQUESTING PHYSICIAN: Dr. Garcia REASON FOR CONSULTATION: Wound care suggestions for sacral deep tissue injury and stage one pressure injury HISTORY OF PRESENT ILLNESS: This is an 89-year-old male who recently underwent a right lower extremity, arterial bypass in [place] for limb salvage. He was transferred to [facility] and seen by Dr. Wayne, Podiatry for an ischemic right great toe which required amputation. A closed amputation was performed. The patient is approximately 4 days postoperative with stable vital signs and is on Zosyn IV q. He is mildly confused nonambulatory and at present has been confined to bedrest. In that regard, heel flow boot should be applied bilaterally to avoid any potential deep tissue injury or pressure injuries involving the heels, for which she is at high risk of developing. In terms of his sacrum, there are two stage II pressure injury present with an adjacent area consistent with a deep tissue injury. These wounds have not been measured and are estimated to be approximately 7.0 cm by 4.0 cm with a wound depth of less than 1.0 cm. by the nurse who was present. The periwounds are intact without evidence of ischemia, erythema or maceration. The patient is a diabetic and the last two Accu-Chek readings were 232 and 179. The patient is on a sliding scale of insulin. Is important to keep the patient's blood glucose at 180 or less as higher levels impair wound healing. Our suggestions: clean the wounds with Vashe wound cleanser, soaking a 4 by 4 gauze sponge with the cleanser and applying it to the wounds for 10 minutes. A sacral foam dressing should then be applied and changed on a daily basis. Skin prep should be utilized to protect the periwound. The patient should be offloaded, changing position every 2 hours and utilizing an offloading mattress. If the patient is to get out of bed, a ROHO cushion should be utilized. The patient should avoid semi Fowlers position while in bed ie. 45 degrees while taking meals, as this places significant pressure on the sacral and coccyx area. More appropriately, 90 degrees sitting position would be preferred. It should be kept in mind that deep tissue injuries and stage I or II pressure injuries can rapidly deteriorate and become stage IV pressure injuries. The patients diet should be supplemented with Glucerna and Clarence amino acid supplement twice daily. The patient is a high risk for deterioration and wound progression of the sacral area, and is at significant risk for developing deep tissue injuries or pressure injuries to his heels. Again for this reason, heel flow boots bilaterally have been ordered in an effort to avoid this. GONSALO
[2020-03-30] MEDS: LEVEMIR (INSULIN DETEMIR) 1 UNITS/0.01ML SC SCH ×2 (08:19→21:47)
[2020-03-30] MEDS: PREGABALIN 100 MG CAP (LYRICA) PO SCH ×3 (08:19→21:48)
[2020-03-30] MEDS: TAMSULOSIN 0.4 MG CAP PO SCH (08:19)
[2020-03-30] MEDS: HumaLOG INSULIN (NovoLOG) PER UNIT SC SCH ×4 (08:19→21:00)
[2020-03-30] MEDS: FUROSEMIDE 40 MG TAB PO SCH (08:20)
[2020-03-30] MEDS: CLOPIDOGREL 75 MG TAB PO SCH (08:20)
[2020-03-30] MEDS: NORCO, ANEXSIA 5/325MG TABLET (HYDROcodone/ACETAMINOPHEN) PO SCH ×2 (08:20→21:48)
[2020-03-30] MEDS: RIVAROXABAN 10 MG TAB (XARELTO) PO SCH ×2 (08:21→21:47)
[2020-03-30] MEDS: CARVedilol 3.125 MG TAB PO SCH ×2 (08:25→21:50)
[2020-03-30 10:17] LABS: C REACTIVE PROTEIN QUANTITATIV 7.07 MG/DL (0.00-0.30)
--- NOTE | 2020-03-30 11:44 | IPNPDOC ---
Text Note Date of Service The patient was seen on 03/30/20. NOTE Subjective: Worked a little with PT yesterday. Objective: Vitals (See below) General: Lying in bed, AAOx3 HEENT: NC, AT, moist mucous membranes, anicteric eyes. CVS: +S1S2 Regular, normal rate, No Rub/ murmur or gallop Lungs: Fair air entry b/l, no appreciable wheezing, rhonchi or rales Abdomen: Soft, nondistended, nontender, bowel sounds normal. Extremities: No evidence of edema, - Calf tenderness, right first digit dry gangrene surrounding erythema, warmth and odor Skin: sacrum/ coccyx stage 2 pressure ulcer with deep tissue injury in part of it 8 cm x 5 cm, stage 2 ulcer on the left buttock laterally with granulation tissues 5 cm x 4 cm was ablister before which has now broken, and a small fluid filled blister on the left buttock above the stage 2 pressure injury. Labs and radiology reviewed Assessment and plan: Patient is an 89-year-old male with a PMHx of HTN, NIDDM2, PVD (s/p RLE femoral-popliteal bypass), Hx of Chronic RLE digit necrosis, DLP, Hypothyroidism, Neuropathy, BPH, GERD who presented to the hospital after experiencing 3-4 days of aches and pains all over his body. Patient was admitted to the hospital service for sepsis secondary to his right lower extremities cellulitis/osteomyelitis. Patient has had first digit necrosis / gangrene. Sepsis due to Cellulitis/osteomyelitis and Gangrene of R foot Hallux s/p amputation of RLE first digit on 03/26 Blood cultures 03/24, 06/12 streptococcus agalactiae Wound cultures 03/24: MSSA and Streptococcus agalactiae stop Zosyn start keflex. PT/OT PAD. Patient and daughters had refused transfer to [facility] for further intervention (recent intervention 2 weeks ago) Sacral/ cocyx pressure ulcer present on admission Blisters and new pressure ulcer onthe left buttock which was a blister before. frequent repositioning. optifoam dressing. Wound consult on Sunday. s/p A. fib with RVR Now rate controlled. ECHO complete; report pending restarted xarelto. s/p Lactic acidosis Hypokalemia replaced HTN was hypotensive on presentation, now normal coreg restarted. Lasix started hold amlodipine NIDDM2 with Hyperglycemia ISS, lispro Levemir PVD s/p RLE femoral-popliteal bypass Plavix , xarelto DLP Pravastatin Hypothyroidism Levothyroxine Back pain/ Neuropathy Lyrica, tylenol, toradol. norco. BPH Tamsulosin GI prophylaxis / GERD Protonix DVT prophylaxis : xarelto Code status: DNR / DNI Disposition: PT evaluation. i suspect he will need continued rehab on discharge. Daughter/healthcare proxy Lory Hamilton [phone] VS,Jaclyn, I+O VS, Jaclyn, I+O Laboratory Tests 03/30/20 05:24 Vital Signs Date Time Temp Pulse Resp B/P (MAP) Pulse Ox O2 Delivery O2 Flow Rate FiO2 03/30/20 08:25 78 114/50 03/30/20 08:20 16 03/29/20 22:00 98.2 95 Room Air I&O- Last 24 Hours up to 6 AM 03/30/20 06:00 Intake Total 980 ml Output Total 900 ml Balance 80 ml TALA ANGELO MD Mar 30, 2020 11:44
[2020-03-30] MEDS: KETOROLAC 30 MG/ML 1ML VIAL IV PRN (12:33)
[2020-03-30] MEDS: CEPHALEXIN 500 MG CAP PO SCH ×2 (12:33→17:16)
[2020-03-30 14:00] VITALS: BP 182/67
[2020-03-30] MEDS: PRAVASTATIN 20 MG TAB PO SCH (21:48)
[2020-03-30 22:00] VITALS: BP 139/64
[2020-03-31] MEDS: CEPHALEXIN 500 MG CAP PO SCH ×5 (00:39→23:34)
[2020-03-31 06:00] VITALS: BP 152/63
[2020-03-31] MEDS: LEVOTHYROXINE 50MCG TABLET (0.05MG) PO SCH (06:05)
[2020-03-31] MEDS: ACETAMINOPHEN 500 MG TAB PO PRN (06:06)
[2020-03-31 06:13] LABS: BASO % 0.2 % (0.0-1.0); EOS # 0.5 10^3/uL (0.0-0.5); EOS % 3.6 % (0.0-3.0); HEMATOCRIT 31.3 % (42.0-52.0); LYMPH # 1.1 10^3/uL (1.5-5.0); LYMPH % 7.4 % (24.0-44.0); MEAN CORPUSCULAR HEMOGLOBIN 27.2 pg (27.0-33.0); MEAN CORPUSCULAR HGB CONC 31.9 g/dl (32.0-36.5); MEAN CORPUSCULAR VOLUME 85.1 fl (80.0-96.0); MONO # 0.9 10^3/uL (0.0-0.8); NEUTROPHILS # 11.6 10^3/uL (1.5-8.5); NEUTROPHILS % 81.4 % (36.0-66.0); PLATELET COUNT, AUTOMATED 303 10^3/uL (150-450); RED BLOOD COUNT 3.68 10^6/uL (4.30-6.10); WHITE BLOOD COUNT 14.3 10^3/uL (4.0-10.0)
[2020-03-31 06:48] LABS: ALBUMIN 1.7 GM/DL (3.2-5.2); ALT/SGPT 47 U/L (12-78); BILIRUBIN,TOTAL 0.4 MG/DL (0.2-1.0); BLOOD UREA NITROGEN 22 MG/DL (7-18); CALCIUM LEVEL 8.3 MG/DL (8.8-10.2); CARBON DIOXIDE LEVEL 31 MEQ/L (21-32); CHLORIDE LEVEL 99 MEQ/L (98-107); CREATININE FOR GFR 0.83 MG/DL (0.70-1.30); GLOMERULAR FILTRATION RATE > 60.0 (>35); GLUCOSE, FASTING 197 MG/DL (70-100); POTASSIUM SERUM 4.7 MEQ/L (3.5-5.1); SODIUM LEVEL 133 MEQ/L (136-145); TOTAL PROTEIN 5.5 GM/DL (6.4-8.2)
[2020-03-31] MEDS: HumaLOG INSULIN (NovoLOG) PER UNIT SC SCH ×4 (08:48→20:23)
[2020-03-31] MEDS: LEVEMIR (INSULIN DETEMIR) 1 UNITS/0.01ML SC SCH ×2 (08:49→20:22)
[2020-03-31] MEDS: RIVAROXABAN 10 MG TAB (XARELTO) PO SCH ×2 (08:50→20:22)
[2020-03-31] MEDS: TAMSULOSIN 0.4 MG CAP PO SCH (08:50)
[2020-03-31] MEDS: CARVedilol 3.125 MG TAB PO SCH ×2 (08:51→20:22)
[2020-03-31] MEDS: FUROSEMIDE 40 MG TAB PO SCH (08:51)
[2020-03-31] MEDS: NORCO, ANEXSIA 5/325MG TABLET (HYDROcodone/ACETAMINOPHEN) PO SCH ×2 (08:52→20:22)
[2020-03-31] MEDS: PREGABALIN 100 MG CAP (LYRICA) PO SCH ×3 (08:52→20:22)
[2020-03-31] MEDS: CLOPIDOGREL 75 MG TAB PO SCH (08:52)
--- NOTE | 2020-03-31 12:51 | IPNPDOC ---
Text Note Date of Service The patient was seen on 03/31/20. NOTE Subjective: Subjective: Patient reports that he stood up yesterday. this am he says he had breakfast sitting by the side of bed but after an hour of sitting his back became very stiff and painful. Seen by Dr Pugh yesterday. Objective: Vitals (See below) General: Lying in bed, AAOx3 HEENT: NC, AT, moist mucous membranes, anicteric eyes. CVS: +S1S2 Regular, normal rate, No Rub/ murmur or gallop Lungs: Fair air entry b/l, no appreciable wheezing, rhonchi or rales Abdomen: Soft, nondistended, nontender, bowel sounds normal. Extremities: No evidence of edema, - Calf tenderness, right first digit dry gangrene surrounding erythema, warmth and odor Skin: sacrum/ coccyx stage 2 pressure ulcer with deep tissue injury in part of it 8 cm x 5 cm, stage 2 ulcer on the left buttock laterally with granulation tissues 5 cm x 4 cm was ablister before which has now broken, and a small fluid filled blister on the left buttock above the stage 2 pressure injury. Labs and radiology reviewed Assessment and plan: Patient is an 89-year-old male with a PMHx of HTN, NIDDM2, PVD (s/p RLE femoral-popliteal bypass), Hx of Chronic RLE digit necrosis, DLP, Hypothyroidism, Neuropathy, BPH, GERD who presented to the hospital after experiencing 3-4 days of aches and pains all over his body. Patient was admitted to the hospital service for sepsis secondary to his right lower extremities cellulitis/osteomyelitis. Patient has had first digit necrosis / gangrene. Sepsis due to Cellulitis/osteomyelitis and Gangrene of R foot Hallux s/p amputation of RLE first digit on 03/26 Blood cultures / streptococcus agalactiae Wound cultures from OR MSSA and Streptococcus agalactiae Keflex till 04/05/20 PT/OT PAD. Patient and daughters had refused transfer to [facility] for further intervention (recent intervention 2 weeks ago) Sacral/ cocyx pressure ulcer present on admission Blisters and new pressure ulcer onthe left buttock which was a blister before. frequent repositioning. Dr Pugh following. Wound care as per Dr Pugh. s/p A. fib with RVR Now rate controlled. ECHO complete No vegetations, no valvular abnormalities. Normal left ventricle internal dimensions and wall thickness. Normal regional left ventricular (LV) wall motion and wall thickening. Normal left ventricular (LV) systolic function. Left ventricular ejection fraction (LVEF) 60% by visual estimate. Unable to determine left ventricular (LV) diastolic function in the setting of atrial fibrillation. restarted xarelto. s/p Lactic acidosis Hypokalemia replaced HTN was hypotensive on presentation, now normal coreg restarted. Lasix started hold amlodipine NIDDM2 with Hyperglycemia ISS, lispro Levemir PVD s/p RLE femoral-popliteal bypass Plavix , xarelto DLP Pravastatin Hypothyroidism Levothyroxine Back pain/ Neuropathy Lyrica, tylenol, toradol. norco. BPH Tamsulosin GI prophylaxis / GERD Protonix DVT prophylaxis : xarelto Code status: DNR / DNI Disposition: Continued rehab Daughter/healthcare proxy Lory Hamilton [phone] VS,Jaclyn, I+O VS, Jacyln, I+O Laboratory Tests 03/31/20 05:53 Vital Signs Date Time Temp Pulse Resp B/P (MAP) Pulse Ox O2 Delivery O2 Flow Rate FiO2 03/31/20 06:00 98.2 86 18 152/63 (92) 97 Room Air I&O- Last 24 Hours up to 6 AM 03/31/20 07:00 Intake Total 1520 ml Output Total 1225 ml Balance 295 ml TALA ANGELO MD Mar 31, 2020 07:28
[2020-03-31 14:00] VITALS: BP 180/78
[2020-03-31 20:10] VITALS: BP 126/91
[2020-03-31] MEDS: PRAVASTATIN 20 MG TAB PO SCH (20:22)
[2020-04-01 05:28] VITALS: BP 126/94
[2020-04-01] MEDS: LEVOTHYROXINE 50MCG TABLET (0.05MG) PO SCH (05:29)
[2020-04-01] MEDS: CEPHALEXIN 500 MG CAP PO SCH ×3 (05:29→18:16)
[2020-04-01] MEDS: LEVEMIR (INSULIN DETEMIR) 1 UNITS/0.01ML SC SCH ×2 (08:01→21:17)
[2020-04-01] MEDS: HumaLOG INSULIN (NovoLOG) PER UNIT SC SCH ×4 (08:02→21:16)
[2020-04-01] MEDS: NORCO, ANEXSIA 5/325MG TABLET (HYDROcodone/ACETAMINOPHEN) PO SCH ×2 (08:03→21:17)
[2020-04-01] MEDS: TAMSULOSIN 0.4 MG CAP PO SCH (08:03)
[2020-04-01] MEDS: CLOPIDOGREL 75 MG TAB PO SCH (08:05)
[2020-04-01] MEDS: PREGABALIN 100 MG CAP (LYRICA) PO SCH ×3 (08:05→21:15)
[2020-04-01] MEDS: RIVAROXABAN 10 MG TAB (XARELTO) PO SCH ×2 (08:05→21:15)
[2020-04-01] MEDS: FUROSEMIDE 40 MG TAB PO SCH (08:05)
[2020-04-01] MEDS: CARVedilol 3.125 MG TAB PO SCH ×2 (08:06→21:16)
--- NOTE | 2020-04-01 12:47 | IPNPDOC ---
Text Note Date of Service The patient was seen on 04/01/20. NOTE Subjective: seen at bedside while he was working with PT. Was able to sit up after some coaxing with 1 assist. Complains that his back is very sore. Very weak and tired. Not much motivated today. Family would like to take him home with 24 x 7 care. Objective: Vitals (See below) General: Lying in bed, AAOx3 HEENT: NC, AT, moist mucous membranes, anicteric eyes. CVS: +S1S2 Regular, normal rate, No Rub/ murmur or gallop Lungs: Fair air entry b/l, no appreciable wheezing, rhonchi or rales Abdomen: Soft, nondistended, nontender, bowel sounds normal. Extremities: No evidence of edema, - Calf tenderness, right first digit dry gangrene surrounding erythema, warmth and odor Skin: sacrum/ coccyx stage 2 pressure ulcer with deep tissue injury in part of it 8 cm x 5 cm, stage 2 ulcer on the left buttock laterally with granulation tissues 5 cm x 4 cm was ablister before which has now broken, and a small fluid filled blister on the left buttock above the stage 2 pressure injury. Labs and radiology reviewed Assessment and plan: Patient is an 89-year-old male with a PMHx of HTN, NIDDM2, PVD (s/p RLE femoral-popliteal bypass), Hx of Chronic RLE digit necrosis, DLP, Hypothyroidism, Neuropathy, BPH, GERD who presented to the hospital after experiencing 3-4 days of aches and pains all over his body. Patient was admitted to the hospital service for sepsis secondary to his right lower extremities cellulitis/osteomyelitis. Patient has had first digit necrosis / gangrene. 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 PT/OT PAD. Patient and daughters had refused transfer to [facility] for further intervention (recent intervention 2 weeks ago) Sacral/ cocyx pressure ulcer present on admission Blisters and new pressure ulcer onthe left buttock which was a blister before. frequent repositioning. Dr Pugh following. Wound care as per Dr Pugh. s/p A. fib with RVR Now rate controlled. ECHO complete No vegetations, no valvular abnormalities. Normal left ventricle internal dimensions and wall thickness. Normal regional left ventricular (LV) wall motion and wall thickening. Normal left ventricular (LV) systolic function. Left ventricular ejection fraction (LVEF) 60% by visual estimate. Unable to determine left ventricular (LV) diastolic function in the setting of atrial fibrillation. restarted xarelto. s/p Lactic acidosis Hypokalemia replaced HTN was hypotensive on presentation, now normal coreg restarted. Lasix started hold amlodipine NIDDM2 with Hyperglycemia ISS, lispro Levemir PVD s/p RLE femoral-popliteal bypass Plavix , xarelto DLP Pravastatin Hypothyroidism Levothyroxine Back pain/ Neuropathy Lyrica, tylenol, toradol. norco. BPH Tamsulosin GI prophylaxis / GERD Protonix DVT prophylaxis : xarelto Code status: DNR / DNI Disposition: Continued rehab / home with 24 x7 care. Daughter/healthcare proxy Lory Hamilton [phone] VS,Fishbone, I+O VS, Fishbone, I+O Vital Signs Date Time Temp Pulse Resp B/P (MAP) Pulse Ox O2 Delivery O2 Flow Rate FiO2 04/01/20 09:00 17 04/01/20 08:06 89 145/62 04/01/20 05:28 98.2 96 Room Air I&O- Last 24 Hours up to 6 AM 04/01/20 07:00 Intake Total 970 ml Output Total 1375 ml Balance -405 ml TALA ANGELO MD Apr 01, 2020 12:47
[2020-04-01 14:00] VITALS: BP 141/86
[2020-04-01] MEDS: ACETAMINOPHEN 500 MG TAB PO PRN (14:03)
[2020-04-01] MEDS: metroNIDAZOLE (FLAGYL) 500MG TABLET PO SCH ×2 (15:28→21:14)
[2020-04-01] MEDS: PRAVASTATIN 20 MG TAB PO SCH (21:15)
[2020-04-01 22:00] VITALS: BP 141/64
[2020-04-02] MEDS: CEPHALEXIN 500 MG CAP PO SCH ×3 (00:11→14:16)
[2020-04-02 06:00] VITALS: BP 110/42
[2020-04-02] MEDS: ACETAMINOPHEN 500 MG TAB PO PRN (06:13)
[2020-04-02] MEDS: LEVOTHYROXINE 50MCG TABLET (0.05MG) PO SCH (06:13)
[2020-04-02] MEDS: metroNIDAZOLE (FLAGYL) 500MG TABLET PO SCH ×2 (08:16→16:58)
[2020-04-02] MEDS: TAMSULOSIN 0.4 MG CAP PO SCH (08:16)
[2020-04-02] MEDS: FUROSEMIDE 40 MG TAB PO SCH (08:17)
[2020-04-02] MEDS: NORCO, ANEXSIA 5/325MG TABLET (HYDROcodone/ACETAMINOPHEN) PO SCH (08:17)
[2020-04-02 08:18] VITALS: BP 110/42
[2020-04-02] MEDS: CARVedilol 3.125 MG TAB PO SCH (08:18)
[2020-04-02] MEDS: PREGABALIN 100 MG CAP (LYRICA) PO SCH ×2 (08:19→16:58)
[2020-04-02] MEDS: CLOPIDOGREL 75 MG TAB PO SCH (08:19)
[2020-04-02] MEDS: RIVAROXABAN 10 MG TAB (XARELTO) PO SCH (08:19)
[2020-04-02] MEDS: HumaLOG INSULIN (NovoLOG) PER UNIT SC SCH ×2 (08:20→14:17)
[2020-04-02] MEDS: LEVEMIR (INSULIN DETEMIR) 1 UNITS/0.01ML SC SCH (08:21)
[2020-04-02] MEDS ORDERED: FLAG500T PO (10:26)
[2020-04-02] MEDS ORDERED: GLIP-162 PO (10:26)
[2020-04-02] MEDS ORDERED: CEPH500C PO (10:26)
[2020-04-02] MEDS ORDERED: HYDR-3715 PO (10:28)
[2020-04-02 14:00] VITALS: BP 117/42
[2020-04-02] MEDS ORDERED: SERT25TA85 PO (17:20)
--- NOTE | 2020-04-03 12:52 | DS.PDOC ---
Discharge Summary General Date of Admission Mar 24, 2020 at 18:12 Date of Discharge 04/02/20 Discharge Summary PROCEDURES PERFORMED DURING STAY: [None]. 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 fib with RVR Depression Generalized deconditioning SECONDARY DIAGNOSIS: HTN, NIDDM2, PAD (s/p RLE femoral-popliteal bypass), Hx of Chronic RLE digit necrosis, DLP, Hypothyroidism, Neuropathy, BPH, GERD, A fib, Back pain/ Neuropathy COMPLICATIONS/CHIEF COMPLAINT: Sepsis. HOSPITAL COURSE: Patient is an 89-year-old male with a PMHx of HTN, NIDDM2, PVD (s/p RLE femoral-popliteal bypass), Hx of Chronic RLE digit necrosis, DLP, Hypothyroidism, Neuropathy, BPH, GERD who presented to the hospital after experiencing 3-4 days of aches and pains all over his body. Patient was admitted to the hospital service for sepsis secondary to his right lower extremities cellulitis/osteomyelitis. Patient has had first digit necrosis / gangrene. 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 PT/OT Sacral/ cocyx pressure ulcer present on admission Blisters and new pressure ulcer onthe left buttock which was a blister before. frequent repositioning. Dr Pugh following. Wound care as per Dr Pugh. s/p A. fib with RVR Now rate controlled. ECHO complete No vegetations, no valvular abnormalities. Normal left ventricle internal dimensions and wall thickness. Normal regional left ventricular (LV) wall motion and wall thickening. Normal left ventricular (LV) systolic function. Left ventricular ejection fraction (LVEF) 60% by visual estimate. Unable to determine left ventricular (LV) diastolic function in the setting of atrial fibrillation. restarted xarelto. s/p Lactic acidosis Hypokalemia replaced HTN was hypotensive on presentation, now normal coreg , amlodipine and lasix NIDDM2 with Hyperglycemia glipizide PAD s/p RLE femoral-popliteal bypass Patient and daughters had refused transfer to [facility] for further intervention (recent intervention 2 weeks ago) Plavix , xarelto DLP Pravastatin Hypothyroidism Levothyroxine Back pain/ Neuropathy Lyrica, tylenol, norco. BPH Tamsulosin GI prophylaxis / GERD Protonix DISCHARGE MEDICATIONS: Please see below. ALLERGIES: Please see below. PHYSICAL EXAMINATION ON DISCHARGE: VITAL SIGNS: Please see below. General: Lying in bed, AAOx3 HEENT: NC, AT, moist mucous membranes, anicteric eyes. CVS: +S1S2 Regular, normal rate, No Rub/ murmur or gallop Lungs: Fair air entry b/l, no appreciable wheezing, rhonchi or rales Abdomen: Soft, nondistended, nontender, bowel sounds normal. Extremities: No evidence of edema, - Calf tenderness, right first digit dry gangrene surrounding erythema, warmth and odor Skin: sacrum/ coccyx stage 2 pressure ulcer with deep tissue injury in part of it 8 cm x 5 cm, stage 2 ulcer on the left buttock laterally with granulation tissues 5 cm x 4 cm was a blister before which has now broken, and a small fluid filled blister on the left buttock above the stage 2 pressure injury. LABORATORY DATA: Please see below. ACTIVITY: [As tolerated]. DIET: As tolerated DISPOSITION: Home Health Service. DISCHARGE INSTRUCTIONS: Follow up Dr Wayne in [address] Pugh in 1 week DISCHARGE CONDITION: [Stable]. TIME SPENT ON DISCHARGE: 35 minutes. Vital Signs/I&Os Vital Signs Date Time Temp Pulse Resp B/P (MAP) Pulse Ox O2 Delivery O2 Flow Rate FiO2 04/02/20 14:00 98.3 78 18 117/42 (67) 95 Room Air I&O- Last 24 Hours up to 6 AM 04/03/20 06:00 Intake Total 480 ml Output Total 675 ml Balance -195 ml Microbiology Microbiology 03/26/20 Gram Stain - Final, Complete 03/26/20 Wound Culture - Final, Complete Staphylococcus Aureus Strep Agalactiae Group B 03/26/20 Anaerobic Culture - Final, Complete Anaerobic Cocci 03/25/20 Blood Culture - Final, Complete NO GROWTH AFTER 5 DAYS 03/25/20 Blood Culture - Final, Complete NO GROWTH AFTER 5 DAYS 03/24/20 Blood Culture - Final, Complete NO GROWTH AFTER 5 DAYS 03/24/20 Gram Stain - Final, Complete 03/24/20 Wound Culture - Final, Complete Staphylococcus Aureus Strep Agalactiae Group B 03/24/20 Blood Culture - Final, Complete Strep Agalactiae Group B Discharge Medications Scheduled Amlodipine Besylate (Amlodipine Besylate) 5 Mg Tab, 5 MG PO DAILY, (Reported) Carvedilol (Carvedilol) 3.125 Mg Tab, 3.125 MG PO BID, (Reported) Cephalexin (Cephalexin) 500 Mg Capsule, 500 MG PO Q6H Clopidogrel Bisulfate (Clopidogrel) 75 Mg Tablet, 75 MG PO DAILY, (Reported) Furosemide (Furosemide) 40 Mg Tab, 40 MG PO DAILY, (Reported) Glipizide (Glipizide Xl) 5 Mg Tab.er.24, 1 TAB PO DAILY Levothyroxine Sodium (Synthroid) 50 Mcg Tablet, 50 MCG PO DAILY, (Reported) Metronidazole (Flagyl) 500 Mg Tablet, 500 MG PO TID Pravastatin Sodium (Pravachol) 20 Mg Tab, 20 MG PO QHS, (Reported) Pregabalin (Lyrica) 100 Mg Cap, 100 MG PO TID, (Reported) Rivaroxaban (Xarelto) 2.5 Mg Tablet, 2.5 MG PO BID, (Reported) Sertraline Hcl (Sertraline HCl) 25 Mg Tablet, 1 TAB PO DAILY Tamsulosin HCl (Flomax) 0.4 Mg Cap, 0.8 MG PO DAILY, (Reported) Scheduled PRN Acetaminophen (Acetaminophen) 325 Mg Tab, 650 MG PO Q6H PRN for PAIN, (Reported) Hydrocodone/Acetaminophen (Hydrocodone-Acetamin 5-325 mg) 1 Each Tablet, 1 TAB PO TIDP PRN for SEVERE PAIN (PS 8-10) Miscellaneous Medications [Med Rec Comment] , (Reported) LIST OBTAINED FROM PHARMACY, PT STATES HE TOOK ALL OF HIS MEDS THIS MORNING Allergies Coded Allergies: No Known Drug Allergies (Verified Allergy, Unknown, 03/24/20) TALA ANGELO MD Apr 03, 2020 12:52
== END 2020-04-02 18:25 | disposition home health service (06) | DRG 854 ==
LOC: M ED 13:22 → EDBD 13:22 → M ED INP 18:12 → ENRESERV 19:09 → M ICU 21:41 → M PCU 03-25 11:30 → M MS5PR 03-27 01:04
PROVIDERS: ADMIT Internal Medicine; ATTEND Internal Medicine Nephrology
PROC: 0Y6P0Z0 Detachment at Right 1st Toe, Complete, Open Approach (ICD-10-PCS; principal; 2020-03-26 10:00)
DX: A41.9 Sepsis, unspecified organism (principal); L03.115 Cellulitis of right lower limb; E11.52 Type 2 diabetes mellitus with diabetic peripheral angiopathy with gangrene; E87.2 Acidosis; M86.171 Other acute osteomyelitis, right ankle and foot; I10 Essential (primary) hypertension; E87.6 Hypokalemia; E11.65 Type 2 diabetes mellitus with hyperglycemia; I48.91 Unspecified atrial fibrillation; N40.0 Benign prostatic hyperplasia without lower urinary tract symptoms; L89.322 Pressure ulcer of left buttock, stage 2; L97.519 Non-pressure chronic ulcer of other part of right foot with unspecified severity; L89.156 Pressure-induced deep tissue damage of sacral region; Z66 Do not resuscitate; E11.69 Type 2 diabetes mellitus with other specified complication; E78.5 Hyperlipidemia, unspecified; E03.9 Hypothyroidism, unspecified; B35.1 Tinea unguium; E11.40 Type 2 diabetes mellitus with diabetic neuropathy, unspecified; K21.9 Gastro-esophageal reflux disease without esophagitis; Z87.891 Personal history of nicotine dependence; Z79.02 Long term (current) use of antithrombotics/antiplatelets; Z79.01 Long term (current) use of anticoagulants; Z79.84 Long term (current) use of oral hypoglycemic drugs; Z79.899 Other long term (current) drug therapy; Z95.820 Peripheral vascular angioplasty status with implants and grafts

== ENCOUNTER → 2020-06-30 | Outpatient (CLI) | payer MEDICARE ==
[~2020-06-30] MED LIST changes: +CEPH500C PO; +CLOP75TA2 PO; +DOXY100C PO; +FLAG500T PO; +GLIP-162 PO; +HYDR-3715 PO; -LISI-542 PO; +LISI-898 PO; +MED REC COMMENT; +SERT25TA85 PO; +SYNT50TA PO; +XARE2.5T PO
[2020-06-30 12:19] LABS: BASO # 0.1 10^3/uL (0.0-0.2); BASO % 0.8 % (0.0-1.0); EOS # 0.4 10^3/uL (0.0-0.5); EOS % 5.5 % (0.0-3.0); HEMATOCRIT 34.6 % (42.0-52.0); HEMOGLOBIN 10.6 g/dl (13.5-17.5); LYMPH # 1.6 10^3/uL (1.5-5.0); LYMPH % 20.6 % (24.0-44.0); MEAN CORPUSCULAR HEMOGLOBIN 24.9 pg (27.0-33.0); MEAN CORPUSCULAR HGB CONC 30.6 g/dl (32.0-36.5); MEAN CORPUSCULAR VOLUME 81.4 fl (80.0-96.0); MONO # 0.7 10^3/uL (0.0-0.8); MONO % 9.8 % (0.0-5.0); NEUTROPHILS # 4.8 10^3/uL (1.5-8.5); PLATELET COUNT, AUTOMATED 385 10^3/uL (150-450); RED BLOOD COUNT 4.25 10^6/uL (4.30-6.10); WHITE BLOOD COUNT 7.6 10^3/uL (4.0-10.0)
[2020-06-30 12:30] LABS: INR 1.15
[2020-06-30 12:31] LABS: PARTIAL THROMBOPLASTIN TIME 39.7 SECONDS (24.2-38.5)
[2020-06-30 12:42] LABS: BLOOD UREA NITROGEN 44 MG/DL (7-18); CALCIUM LEVEL 9.6 MG/DL (8.8-10.2); CARBON DIOXIDE LEVEL 32 MEQ/L (21-32); CHLORIDE LEVEL 102 MEQ/L (98-107); CREATININE FOR GFR 0.88 MG/DL (0.70-1.30); GLOMERULAR FILTRATION RATE > 60.0 (>35); GLUCOSE, FASTING 146 MG/DL (70-100); POTASSIUM SERUM 4.1 MEQ/L (3.5-5.1); SODIUM LEVEL 139 MEQ/L (136-145)
== END ==
LOC: M LAB 11:43
PROVIDERS: ATTEND Surgery Vascular Surgery
DX: I70.212 Atherosclerosis of native arteries of extremities with intermittent claudication, left leg (principal); D69.8 Other specified hemorrhagic conditions

== ENCOUNTER → 2020-07-08 | Outpatient (REF) | payer MEDICARE ==
[~2020-07-08] MED LIST changes: +LISI-542 PO; -LISI-898 PO
== END ==
LOC: M LAB REF 17:04
PROVIDERS: ATTEND Nurse Practitioner Family
DX: N39.0 Urinary tract infection, site not specified (principal)

== ENCOUNTER → 2020-11-04 | Outpatient (CLI) | payer MEDICARE ==
[~2020-11-04] MED LIST changes: -LISI-542 PO; +LISI-898 PO
--- NOTE | 2020-11-04 13:22 | REP ---
INDICATION: COUGH COMPARISON: 03/24/2020 TECHNIQUE: PA and lateral. FINDINGS: Lower lobe infiltrates along with moderate pleural effusions. Cardiomegaly and increased pulmonary vascular/interstitial markings. IMPRESSION: Differential diagnosis includes CHF as well as multifocal pneumonia. <Electronically signed by Larry Perea > 11/04/20 [id number]
== END ==
LOC: M WUC 13:06
PROVIDERS: ATTEND Family Medicine
DX: R05 Cough (principal)

== ENCOUNTER 2020-11-15 23:13 | Inpatient (IN) | payer MEDICARE ==
[~2020-11-15] VITALS: Ht 175.3 cm; Wt 67.9 kg
[~2020-11-15 23:13] MED LIST changes: +OMEP40CA4 PO; -OMEP40CA97 PO
[2020-11-15] MEDS ORDERED: XARE10TA PO (23:26)
[2020-11-16] VITALS (26 sets, daily range): BP systolic 109–152; BP diastolic 56–71
[2020-11-16 00:07] LABS: VENOUS BASE EXCESS 1.9 (-2.0-2.0); VENOUS HCO3 29.2 MEQ/L (23.0-27.0); VENOUS O2 SATURATION 72.5 % (60.0-80.0); VENOUS PARTIAL PRESSURE O2 43.8 mmHg (30.0-50.0); VENOUS PH 7.305 UNITS (7.330-7.430); VENOUS STANDARD HCO3 25.7 MEQ/L
[2020-11-16 00:21] LABS: BASO # 0.1 10^3/uL (0.0-0.2); BASO % 0.6 % (0.0-1.0); EOS # 0.4 10^3/uL (0.0-0.5); EOS % 3.6 % (0.0-3.0); HEMATOCRIT 32.6 % (42.0-52.0); HEMOGLOBIN 9.5 g/dl (13.5-17.5); LYMPH # 1.1 10^3/uL (1.5-5.0); LYMPH % 9.3 % (24.0-44.0); MEAN CORPUSCULAR HEMOGLOBIN 21.8 pg (27.0-33.0); MEAN CORPUSCULAR HGB CONC 29.1 g/dl (32.0-36.5); MEAN CORPUSCULAR VOLUME 74.8 fl (80.0-96.0); MONO # 1.2 10^3/uL (0.0-0.8); MONO % 10.6 % (2.0-8.0); NEUTROPHILS # 8.6 10^3/uL (1.5-8.5); NEUTROPHILS % 74.9 % (36.0-66.0); PLATELET COUNT, AUTOMATED 285 10^3/uL (150-450); RED BLOOD COUNT 4.36 10^6/uL (4.30-6.10); WHITE BLOOD COUNT 11.5 10^3/uL (4.0-10.0)
--- NOTE | 2020-11-16 00:44 | REPVR ---
PROCEDURE INFORMATION: Exam: XR Chest Exam date and time: 11/15/2020 11:59 PM Age: 89 years old Clinical indication: Cough and dyspnea. TECHNIQUE: Imaging protocol: XR of the chest. Views: 1 view. COMPARISON: CR CHEST 2 VIEW 11/04/2020 1:18 PM FINDINGS: Lungs: There are bibasilar airspace opacities. Pleural spaces: There is a moderate to large right pleural effusion, which has increased in size compared to the prior chest x-ray on 11/04/2020. A small left pleural effusion is present as well. No pneumothorax is noted. Heart/Mediastinum: The cardiac silhouette is borderline in size. Vasculature: There are atherosclerotic calcifications of the aortic arch. Bones/joints: Unremarkable. IMPRESSION: 1. Moderate to large right pleural effusion that has increased in size compared to the prior chest x-ray on 11/04/2020 and a persistent small left pleural effusion. 2. Bibasilar airspace opacities, which may represent atelectasis and/or consolidation (e.g.: pneumonia). Electronically signed by: Moses Sainz On 11/16/2020 00:44:05 AM
[2020-11-16 00:45] LABS: ALBUMIN 3.1 GM/DL (3.2-5.2); ALT/SGPT 51 U/L (12-78); BILIRUBIN,DIRECT 0.2 MG/DL (0.0-0.2); BILIRUBIN,TOTAL 0.6 MG/DL (0.2-1.0); BLOOD UREA NITROGEN 37 MG/DL (7-18); CALCIUM LEVEL 8.6 MG/DL (8.8-10.2); CARBON DIOXIDE LEVEL 36 MEQ/L (21-32); CHLORIDE LEVEL 98 MEQ/L (98-107); CK-MB VALUE MASS 1.1 NG/ML (<3.6); CPK CREATINE PHOSPHOKINASE 42 U/L (39-308); GLOMERULAR FILTRATION RATE > 60.0 (>35); GLUCOSE, FASTING 291 MG/DL (70-100); MB/CK RELATIVE INDEX 2.62 (< OR =4); NT-PRO BNP 3305 PG/ML (<450); POTASSIUM SERUM 4.3 MEQ/L (3.5-5.1); SODIUM LEVEL 138 MEQ/L (136-145); TOTAL PROTEIN 6.8 GM/DL (6.4-8.2); TROPONIN I 0.02 NG/ML (< 0.10)
[2020-11-16 00:56] LABS: RSV AMPLIFICATION NEGATIVE (NEGATIVE)
[2020-11-16] MEDS ORDERED: FUROSEMIDE 40MG/4ML VIAL (J1940) IV ONE (01:00)
--- NOTE | 2020-11-16 01:45 | REPVR ---
PROCEDURE INFORMATION: Exam: CT Chest Without Contrast; Diagnostic Exam date and time: 11/16/2020 12:57 AM Age: 89 years old Clinical indication: Effusion, hypoxia, cough TECHNIQUE: Imaging protocol: Diagnostic computed tomography of the chest without contrast. 3D rendering (Not supervised by radiologist): MIP and/or 3D reconstructed images were created by the technologist. Radiation optimization: All CT scans at this facility use at least one of these dose optimization techniques: automated exposure control; mA and/or kV adjustment per patient size (includes targeted exams where dose is matched to clinical indication); or iterative reconstruction. COMPARISON: CR PORTABLE CHEST X-RAY 11/15/2020 11:50 PM FINDINGS: Thyroid: Unremarkable. Lungs: There is atelectasis in the dependent portions of the upper lobes, atelectasis in the right middle lobe and inferior lingula, and compressive atelectasis in both lower lobes, which is responsible for the bibasilar airspace opacities seen in the chest x-ray on 11/15/2020. There are calcified granulomas in the right upper lobe. Pleural spaces: There is a large right pleural effusion and a small to moderate left pleural effusion measure water density. No pneumothorax. Heart: The heart is mildly enlarged. There are pericardial calcifications. No pericardial effusion is noted. There are coronary artery and aortic valve calcifications. Mediastinal space: No mediastinal mass, fluid collection, or pneumomediastinum. Aorta: No thoracic aortic aneurysm or intramural hematoma is noted. There are extensive atherosclerotic calcifications. Lymph nodes: No enlarged lymph nodes. Limited gallbladder: There are calcified gallstones in the gallbladder. The gallbladder was not fully imaged. Pancreas: Unremarkable. No dilation of the main pancreatic duct is noted. Adrenal glands: Normal. No adrenal mass is noted. Limited bowel: There is colonic diverticulosis involving the proximal descending colon. The bowel was not fully imaged. Bones/joints: There is no fracture or dislocation. No suspicious osteolytic or osteoblastic lesion. The bones have a demineralized appearance. There are bridging paraspinal osteophytes at multiple contiguous levels in the thoracic spine, which are findings compatible with diffuse idiopathic skeletal hyperostosis. There are Schmorl's nodes at several levels in the thoracic spine and lumbar spine. Soft tissues: There is edema in the subcutaneous tissues. IMPRESSION: 1. Large right pleural effusion and a small to moderate left pleural effusion with associated atelectasis in both lungs. 2. No CT findings to suggest pneumonia. 3. Mild cardiomegaly and pericardial calcifications. 4. Cholelithiasis. 5. Colonic diverticulosis. Electronically signed by: Moses Sainz On 11/16/2020 01:44:54 AM
[2020-11-16] MEDS ORDERED: ALBUTEROL 90 MCG/ACT 8GM HFA INHALER INH PRN (01:50)
[2020-11-16] MEDS ORDERED: DEXTROSE 50% 50 ML SYRINGE IV PRN (01:50)
[2020-11-16] MEDS ORDERED: GLUCOSE 4GM CHEW TABLET PO PRN (01:50)
[2020-11-16] MEDS ORDERED: GLUCAGON INJ 1MG VIAL SC PRN (01:50)
[2020-11-16] MEDS ORDERED: MAALOX 30 ML SUSP *UDC PO PRN (01:50)
[2020-11-16] MEDS ORDERED: PRAV20TA2 PO (01:51)
[2020-11-16] MEDS ORDERED: ICAPTAB PO (01:51)
[2020-11-16] MEDS ORDERED: XARE20TA PO (01:51)
[2020-11-16] MEDS ORDERED: GLIP10TA18 PO (01:51)
--- NOTE | 2020-11-16 02:20 | HPEPDOC ---
[facility] Medical History & Physical Date of Admission Nov 16, 2020 Date of Service: Nov 16, 2020 History and Physical CHIEF COMPLAINT: Shortness of breath HISTORY OF PRESENT ILLNESS: 89-year-old male history of hypertension, diabetes, peripheral vascular disease status post femoral-popliteal bypass, status post below knee right amputation, hypothyroidism, peripheral neuropathy, BPH, GERD, atrial fibrillation who presents because of a 3 week history of worsening shortness of breath. Patient tells me that over the past 3 weeks he has become increasingly short of breath he went to his primary care physician who prescribed a ten-day course of antibiotics which appeared to help at first but over the past 3-4 days he again started becoming short of breath his primary care physician increased his Lasix dose from 40 mg to 60 mg for 2 days which did not help. Patient now lives with his daughter due to his multiple comorbidities and she helps provide assistance. Patient denies lower extremity edema but tells me that his daughter noticed his left leg has become more swollen. He tells me shortness of breath got better e nough that he presented to the hospital. Upon presentation. Told patient was initially hypoxic requiring supplemental oxygen. Chest x-ray showed a pleural effusion moderate to large as well as possible bibasilar pneumonia. Patient denies any chest pain denies vision changes denies abdominal pain denies urinary problems. Endorses poor vision due to macular degeneration. Denies a history of strokes or heart attacks in the past. Patient will be admitted to the medical service for further workup and management. PAST MEDICAL/SURGICAL HISTORY: hypertension, [id number] diabetes, peripheral vascular disease status post femoral-popliteal bypass, status post below knee right amputation, hypothyroidism, peripheral neuropathy, BPH, GERD, atrial fibrillation SOCIAL HISTORY: Denies alcohol use Denies tobacco use tells me he quit many years ago can't tell me when Denies illicit drug use FAMILY HISTORY: Reviewed and none contributory to this admission ALLERGIES: Please see below. REVIEW OF SYSTEMS: 10 point review of systems complete all negative otherwise stated in HPI HOME MEDICATIONS: Please see below. PHYSICAL EXAMINATION: Constitutional: Awake and alert, in no apparent distress ENT: Sclera are clear. Mucosa is moist. Respiratory: Lungs diminished breath sounds on the right side. Poor air entry globally. No use of accessory muscles. Saturating 94% on supplemental oxygen Cardiovascular: Regular heart rate without obvious murmurs. Gastrointestinal: Abdomen is slightly distended but nontender, bowel sounds present Musculoskeletal: Right below-knee amputation. Left leg 3+ edema extending upwards all the way to his sacrum Neurologic: No focal neurological deficit. Mental Status: A&O x3, normal affect Skin: No visible rashes LABORATORY DATA: See below. IMAGING: Chest x-ray impressions: IMPRESSION: 1. Moderate to large right pleural effusion that has increased in size compared to the prior chest x-ray on 11/04/2020 and a persistent small left pleural effusion. 2. Bibasilar airspace opacities, which may represent atelectasis and/or consolidation (e.g.: pneumonia). CT chest ordered in the ED pending read MICROBIOLOGY: Please see below. ASSESSMENT/PLAN 89-year-old male history of hypertension, diabetes, peripheral vascular disease status post femoral-popliteal bypass, status post below knee right amputation, hypothyroidism, peripheral neuropathy, BPH, GERD, atrial fibrillation who presents because of a 3 week history of worsening shortness of breath found to be significantly fluid overloaded with right-sided pleural effusion and possible bibasilar pneumonia versus atelectasis admit her for further medical workup and management # Congestive heart failure exacerbation: presumably with preserved ejection fraction based on echo from March 2020. Clinically fluid overloaded. No documented history on last admission for CHF although he is on Lasix at home. Last echo EF 60% last year. Fu repeat echo. IV diuresis with Lasix. Monitor ins and outs. # Right-sided pleural effusion: In the setting of CHF with fluid overload. CXR it is moderate to large. I placed a consultation for IR to drain it in the morning. # Possible pneumonia: Chest x-ray suggestive of bibasilar opacities which could represent consolidations. Patient is afebrile with mild leukocytosis of 11.5 on admission. My suspicion for pneumonia is low. Follow-up CT chest results. I will place him on antibiotics for now IV doxycycline and ceftriaxone. Follow-up blood cultures. If the calcitonin is negative and CT does not suggest pneumonia antibodies can be discontinued. Incentive spirometry. # Atrial fibrillation: Hold home anticoagulation with Xarelto tonight in anticipation for possible IR drainage of his right-sided pleural effusion. EKG in the ED shows junctional rhythm rate of 68. Continue carvedilol for rate control. # PVD: Continue Plavix and statin # Hypertension: Continue home meds. Monitor and titrate # NIDDM with peripheral neuropathy: ISS. Frequent Accu-Cheks. Hypoglycemic precautions. Continue home Lyrica # Hypothyroidism: resume Synthroid. # BPH: Continue home Flomax # DVT prophylaxis: Heparin, can be switched back to Xarelto tomorrow after IR drains his pleural effusion Spoke with patient and confirmed his CODE STATUS is DNR/DNI A [facility] Hospitalist Vital Signs Vital Signs Date Time Temp Pulse Resp B/P (MAP) Pulse Ox O2 Delivery O2 Flow Rate FiO2 11/16/20 01:45 71 20 153/70 (97) 95 Nasal Cannula 1.0 11/15/20 23:13 97.4 Laboratory Data Labs 24H Laboratory Tests 2 11/15/20 23:58: Immature Granulocyte % (Auto) 1.0, Neutrophils (%) (Auto) 74.9H, Lymphocytes (%) (Auto) 9.3L, Monocytes (%) (Auto) 10.6H, Eosinophils (%) (Auto) 3.6H, Basophils (%) (Auto) 0.6, Neutrophils # (Auto) 8.6H, Lymphocytes # (Auto) 1.1L, Monocytes # (Auto) 1.2H, Eosinophils # (Auto) 0.4, Basophils # (Auto) 0.1, Nucleated Red Blood Cells % (auto) 0.0, Blood Gas Bicarbonate Standard 25.7, Venous Blood pH 7.305L, Venous Blood Partial Pressure CO2 60.0H, Venous Blood Partial Pressure O2 43.8, Venous Blood Total Carbon Dioxide 31.0H, Venous Blood HCO3 29.2H, Venous Blood Oxygen Saturation 72.5, Venous Blood Base Excess 1.9, Anion Gap 4L, Glomerular Filtration Rate > 60.0, Lactic Acid Level 1.2, Calcium Level 8.6L, Total Bilirubin 0.6, Direct Bilirubin 0.2, Aspartate Amino Transf (AST/SGOT) 14, Alanine Aminotransferase (ALT/SGPT) 51, Alkaline Phosphatase 170H, Total Creatine Kinase 42, Creatine Kinase MB 1.1, Creatine Kinase MB Relative Index 2.62, Troponin I 0.02, VX-Goo-R-Type Natriuretic Peptide 3305H, Total Protein 6. 8, Albumin 3.1L, Albumin/Globulin Ratio 0.8, Thyroid Stimulating Hormone (TSH) 3.460, Coronavirus (COVID-19)(PCR) NEGATIVE, Influenza Type A (RT-PCR) NEGATIVE, Influenza Type B (RT-PCR) NEGATIVE, Respiratory Syncytial Virus (PCR) NEGATIVE CBC/BMP Laboratory Tests 11/15/20 23:58 Microbiology Microbiology 11/15/20 Blood Culture, Received Pending 11/15/20 Blood Culture, Received Pending Home Medications Scheduled Amlodipine Besylate (Amlodipine Besylate) 5 Mg Tab, 5 MG PO DAILY Carvedilol (Carvedilol) 3.125 Mg Tab, 3.125 MG PO BID Clopidogrel Bisulfate (Clopidogrel) 75 Mg Tablet, 75 MG PO DAILY Furosemide (Furosemide) 40 Mg Tab, 40 MG PO DAILY Glipizide (Glipizide ER) 10 Mg Tab.er.24, 10 MG PO DAILY Levothyroxine Sodium (Synthroid) 50 Mcg Tablet, 50 MCG PO DAILY Pravastatin Sodium (Pravastatin Sodium) 20 Mg Tablet, 20 MG PO QPM TAKES AT DINNER Pregabalin (Lyrica) 100 Mg Cap, 100 MG PO TID Rivaroxaban (Xarelto) 20 Mg Tablet, 20 MG PO QPM TAKES AT DINNER Tamsulosin HCl (Flomax) 0.4 Mg Cap, 0.8 MG PO DAILY Vit A/Vit C/Vit E/Zinc/Copper (Icaps Areds Formula Dr Tablet) 1 Each Tablet., 1 TAB PO BID Allergies Coded Allergies: simvastatin (Verified Allergy, Intermediate, unknown, 11/15/20) A-FIB/CHADSVASC A-FIB History Current/History of A-Fib/PAF?: Yes Current PO Anticoag Therapy: Yes PEREZ MORENO MD Nov 16, 2020 02:20
[2020-11-16] MEDS ORDERED: cefTRIAXone SOD 1 GM in D5W MINI-BAG PLUS 50 ML IV SCH (03:00)
[2020-11-16] MEDS ORDERED: DOXYCYCLINE HYCLATE 100 MG in D5W MINI-BAG PLUS 100 ML IV SCH (04:00)
[2020-11-16] MEDS: LEVOTHYROXINE 50MCG TABLET (0.05MG) PO SCH (06:04)
[2020-11-16 07:30] LABS: HEMATOCRIT 32.4 % (42.0-52.0); HEMOGLOBIN 9.3 g/dl (13.5-17.5); MEAN CORPUSCULAR HEMOGLOBIN 21.9 pg (27.0-33.0); MEAN CORPUSCULAR HGB CONC 28.7 g/dl (32.0-36.5); MEAN CORPUSCULAR VOLUME 76.4 fl (80.0-96.0); PLATELET COUNT, AUTOMATED 251 10^3/uL (150-450); RED BLOOD COUNT 4.24 10^6/uL (4.30-6.10)
[2020-11-16 07:50] LABS: ALT/SGPT 48 U/L (12-78); BILIRUBIN,TOTAL 0.3 MG/DL (0.2-1.0); BLOOD UREA NITROGEN 34 MG/DL (7-18); CALCIUM LEVEL 8.2 MG/DL (8.8-10.2); CARBON DIOXIDE LEVEL 35 MEQ/L (21-32); CHLORIDE LEVEL 101 MEQ/L (98-107); CREATININE FOR GFR 1.06 MG/DL (0.70-1.30); GLOMERULAR FILTRATION RATE > 60.0 (>35); GLUCOSE, FASTING 266 MG/DL (70-100); SODIUM LEVEL 139 MEQ/L (136-145); TOTAL PROTEIN 7.1 GM/DL (6.4-8.2)
[2020-11-16] MEDS: HumaLOG INSULIN (NovoLOG) PER UNIT SC SCH ×4 (08:23→21:00)
[2020-11-16] MEDS ORDERED: CLOPIDOGREL 75 MG TAB PO SCH (09:00)
[2020-11-16] MEDS: HEPARIN SOD (PORCINE) 5000UNITS/ML 1ML VIAL/SYRINGE SQ SCH ×2 (09:41→22:34)
[2020-11-16] MEDS: DOCUSATE SODIUM 100MG CAPSULE PO SCH ×2 (09:41→21:00)
[2020-11-16] MEDS: CARVedilol 3.125 MG TAB PO SCH ×2 (09:41→21:00)
[2020-11-16] MEDS: PREGABALIN 100 MG CAP (LYRICA) PO SCH ×2 (09:41→16:00)
[2020-11-16] MEDS: amLODIPine 5 MG TAB PO SCH (09:42)
[2020-11-16] MEDS: TAMSULOSIN 0.4 MG CAP PO SCH (09:42)
[2020-11-16] MEDS: FUROSEMIDE 100MG/10ML VIAL (J1940) IV SCH ×2 (09:44→17:04)
[2020-11-16] MEDS ORDERED: SLF 3 ML SYR IV PRN (13:25)
[2020-11-16] MEDS: SLF 3 ML SYR IV SCH ×2 (17:05→22:33)
[2020-11-16] MEDS ORDERED: metOLazone 5 MG TAB PO ONE (17:15)
[2020-11-16 17:18] LABS: ABG BASE EXCESS 9.2 (-2.0-2.0); ABG HCO3 39.8 MEQ/L (22.0-26.0); ABG O2 SATURATION 96.9 % (95.0-99.0); ABG PARTIAL PRESSURE O2 99.3 mmHg (75.0-100.0); ABG TOTAL CO2 42.9 MEQ/L (23.0-31.0)
[2020-11-16 17:23] LABS: ABG PARTIAL PRESSURE CO2 99.5 mmHg (35.0-45.0)
[2020-11-16 17:47] LABS: LDH LACTATE DEHYDROGENASE 181 U/L (87-241)
[2020-11-16] MEDS ORDERED: MIDAZOLAM INJ 2MG/2ML VIAL (J2250 PER 1MG) As Ordered ONE (18:28)
[2020-11-16] MEDS ORDERED: LIDOCAINE 1% MDV 20ML VIAL As Ordered ONE (18:29)
[2020-11-16] MEDS ORDERED: MIDAZOLAM INJ 2MG/2ML VIAL (J2250 PER 1MG) IV STA (18:42)
--- NOTE | 2020-11-16 18:44 | IPNPDOC ---
Text Note Date of Service The patient was seen on 11/16/20. NOTE Subjective: Patient was alert and awake in the morning breathing on the room a ir. Around 4 PM patient became more lethargic and somnolent. He was oriented in place but not in time. Objective: GENERAL APPEARANCE: Somnolent male HEENT: no scleral icterus, plus JVD, EOMI CARDIOVASCULAR: Irregularly irregular LUNGS: Diminished more on the right side, bilateral crackles ABDOMEN: soft & not tender w palpitation MUSCULOSKELETAL: no cyanosis, no swelling, right below-knee amputation, left leg edema +3, unstageable left heel wound INTEGUMENT: no generalized pallor NEUROLOGICAL: cranial nerve function from 2-12 intact intact Assessment and plan Patient 89-year-old male history of hypertension, diabetes, peripheral vascular disease status post femoral-popliteal bypass, status post below knee right amputation, hypothyroidism, peripheral neuropathy, BPH, GERD, atrial fibrillation who presents with increased shortness of breath secondary to acute CHF Acute hypercarbic respiratory failure Most likely secondary to large right pleural effusion due to acute CHF exacerbation Appreciate/agree with thoracic surgeon consult, most likely patient will needs thoracocentesis. Thoracocentesis can be complicated by Plavix and xarelto, which patient took yesterday Patient was transferred to ICU, BiPAP started. ABG showed acute hypercapnic respiratory failure Will continue to monitor ABG Acute diastolic CHF Last echo EF 60% last year Echo ordered I's and O's Cardiac diet Lasix IV, metolazone Pneumonia rule out Patient did not have fever, chills, cough, sputum , procalcitonin negative I discontinued antibiotics A. fib Oral targeted anticoagulation on hold Heart rate under control Peripheral vascular diseases Continue statin, Plavix and hold Hypertension Continue home meds Type 2 diabetes Continue insulin sliding scale Diabetes diet Detemir twice a day Due to somnolence, Lyrica on hold Hypothyroidism Synthroid BPH: Continue home Flomax VS,Fishbone, I+O VS, Fishbone, I+O Laboratory Tests 11/15/20 23:58 11/16/20 06:57 Vital Signs Date Time Temp Pulse Resp B/P (MAP) Pulse Ox O2 Delivery O2 Flow Rate FiO2 11/16/20 18:19 35 11/16/20 16:06 98.5 65 18 150/67 (94) 98 Nasal Cannula 2.0 I&O- Last 24 Hours up to 6 AM 11/16/20 06:00 Intake Total 150 ml Output Total 725 ml Balance -575 ml BRIGHT MERCHANT DO Nov 16, 2020 18:44
[2020-11-16] MEDS ORDERED: LIDOCAINE 1% MDV 20ML VIAL SC ONE (18:45)
[2020-11-16] MEDS ORDERED: BISACODYL 10 MG SUPP PR PRN (19:00)
[2020-11-16] MEDS ORDERED: LEVALBUTEROL 1.25 MG/0.5 ML CONCENTRATE NEB NEB PRN (19:00)
[2020-11-16] MEDS ORDERED: PERCOCET 5MG/325MG TAB PO PRN ×2 (19:00)
--- NOTE | 2020-11-16 19:15 | REP ---
INDICATION: s/p chest tube. COMPARISON: 11/15/2020. TECHNIQUE: Single portable AP view of the chest was performed. FINDINGS: Right chest tube has been placed. The right pleural effusion has resolved. There is no pneumothorax. There are mild atelectatic changes in the right lung base. Left basilar parenchymal opacity is unchanged. There is a small left effusion. Heart and mediastinum are unchanged. IMPRESSION: Placement of right chest tube. Right pleural effusion has resolved. <Electronically signed by Tung Isaac > 11/16/20 191
[2020-11-16 20:06] LABS: PH BODY FLUID 7.612 UNITS (NOT ESTABLISHED); SOURCE, BODY FLUID pH PLEURAL
[2020-11-16 20:17] LABS: APPEARANCE, BODY FLUID TURBID (CLEAR); PLEURAL FL COLOR YELLOW (COLORLESS); SOURCE, BODY FLUID PLEURAL
[2020-11-16 20:31] LABS: ABG BASE EXCESS 9.2 (-2.0-2.0); ABG HCO3 38.1 MEQ/L (22.0-26.0); ABG O2 SATURATION 95.6 % (95.0-99.0); ABG PARTIAL PRESSURE O2 83.2 mmHg (75.0-100.0); ABG STANDARD HCO3 32.9 MEQ/L (22.0-26.0); ABG TOTAL CO2 40.6 MEQ/L (23.0-31.0); ABG pH (ARTERIAL) 7.289 UNITS (7.350-7.450)
[2020-11-16 20:34] LABS: ABG PARTIAL PRESSURE CO2 81.3 mmHg (35.0-45.0)
[2020-11-16 20:38] LABS: AMYLASE, BODY FLUID 9 U/L (NOT ESTABLISHED); CHOLESTEROL, BODY FLUID < 50 MG/DL (NOT ESTABLISHED); LDH, BODY FLUID 69 U/L (NOT ESTABLISHED); SOURCE, BODY FLUID AMYLASE PLEURAL; SOURCE, BODY FLUID CHOL PLEURAL; SOURCE, BODY FLUID GLUCOSE PLEURAL; SOURCE, BODY FLUID LDH PLEURAL; SOURCE, BODY FLUID TRIG PLEURAL; TRIGLYCERIDE, BODY FLUID < 2 MG/DL (NOT ESTABLISHED)
[2020-11-16] MEDS: LEVALBUTEROL 1.25 MG/0.5 ML CONCENTRATE NEB NEB SCH (20:53)
[2020-11-16] MEDS: PRAVASTATIN 20 MG TAB PO SCH (21:00)
[2020-11-16 21:01] LABS: SOURCE, BODY FLUID ALBUMIN PLEURAL; SOURCE, BODY FLUID TOT PROTEIN PLEURAL; TOTAL PROTEIN, BODY FLUID 2.4 G/DL (NOT ESTABLISHED)
[2020-11-16] MEDS: KETOROLAC 30 MG/ML 1ML VIAL IV SCH (22:32)
[2020-11-16] MEDS: LEVEMIR (INSULIN DETEMIR) 1 UNITS/0.01ML SC SCH (22:34)
[2020-11-17] VITALS (16 sets, daily range): BP systolic 103–149; BP diastolic 51–65
[2020-11-17] MEDS: KETOROLAC 30 MG/ML 1ML VIAL IV SCH (02:24)
[2020-11-17] MEDS: FUROSEMIDE 100MG/10ML VIAL (J1940) IV SCH ×4 (02:24→21:26)
[2020-11-17] MEDS: LEVALBUTEROL 1.25 MG/0.5 ML CONCENTRATE NEB NEB SCH ×4 (02:30→19:46)
[2020-11-17 05:25] LABS: BASO % 0.4 % (0.0-1.0); EOS # 0.2 10^3/uL (0.0-0.5); EOS % 1.7 % (0.0-3.0); HEMATOCRIT 32.8 % (42.0-52.0); HEMOGLOBIN 9.2 g/dl (13.5-17.5); LYMPH # 0.8 10^3/uL (1.5-5.0); LYMPH % 7.1 % (24.0-44.0); MEAN CORPUSCULAR HEMOGLOBIN 21.9 pg (27.0-33.0); MEAN CORPUSCULAR VOLUME 78.1 fl (80.0-96.0); MONO # 1.1 10^3/uL (0.0-0.8); NEUTROPHILS # 8.8 10^3/uL (1.5-8.5); NEUTROPHILS % 80.4 % (36.0-66.0); PLATELET COUNT, AUTOMATED 222 10^3/uL (150-450)
[2020-11-17] MEDS: SLF 3 ML SYR IV SCH ×2 (05:50→14:10)
[2020-11-17 05:55] LABS: ABG BASE EXCESS 10.6 (-2.0-2.0); ABG HCO3 40.1 MEQ/L (22.0-26.0); ABG O2 SATURATION 97.9 % (95.0-99.0); ABG PARTIAL PRESSURE O2 110.9 mmHg (75.0-100.0); ABG STANDARD HCO3 34.4 MEQ/L (22.0-26.0); ABG TOTAL CO2 42.9 MEQ/L (23.0-31.0); ABG pH (ARTERIAL) 7.268 UNITS (7.350-7.450)
[2020-11-17 05:58] LABS: ABG PARTIAL PRESSURE CO2 89.8 mmHg (35.0-45.0)
[2020-11-17] MEDS ORDERED: LEVOTHYROXINE 100MCG (0.1MG) VIAL IV ONE (06:00)
[2020-11-17 06:05] LABS: ALBUMIN 2.7 GM/DL (3.2-5.2); ALT/SGPT 47 U/L (12-78); BILIRUBIN,TOTAL 0.4 MG/DL (0.2-1.0); BLOOD UREA NITROGEN 36 MG/DL (7-18); CALCIUM LEVEL 8.3 MG/DL (8.8-10.2); CARBON DIOXIDE LEVEL 39 MEQ/L (21-32); CHLORIDE LEVEL 102 MEQ/L (98-107); CREATININE FOR GFR 1.07 MG/DL (0.70-1.30); GLOMERULAR FILTRATION RATE > 60.0 (>35); GLUCOSE, FASTING 102 MG/DL (70-100); MAGNESIUM LEVEL 2.1 MG/DL (1.8-2.4); POTASSIUM SERUM 3.9 MEQ/L (3.5-5.1); SODIUM LEVEL 143 MEQ/L (136-145); TOTAL PROTEIN 6.5 GM/DL (6.4-8.2)
[2020-11-17] MEDS: HumaLOG INSULIN (NovoLOG) PER UNIT SC SCH ×4 (07:30→20:15)
--- NOTE | 2020-11-17 08:50 | REP ---
INDICATION: pleural effusion COMPARISON: 11/16/2020 TECHNIQUE: Portable AP view of the chest FINDINGS: Right-sided chest tube is in stable position and there appears to be increased right apical pneumothorax and increased opacity in the right mid to lower lung zone. Left lower lobe/retrocardiac opacities remain essentially unchanged. IMPRESSION: 1. Small but increased right apical pneumothorax and increased right lower lobe opacities. 2. Stable left lower lobe/retrocardiac opacities. <Electronically signed by Larry Perea > 11/17/20 0846
--- NOTE | 2020-11-17 08:59 | RO ---
OPERATIVE NOTE DATE OF OPERATION: 11/16/2020 PREPROCEDURE DIAGNOSES: 1. Large right-sided pleural effusion. 2. Hypercarbia. 3. Somnolence. POSTPROCEDURE DIAGNOSES: 1. Large right-sided pleural effusion. 2. Hypercarbia. 3. Somnolence. PROCEDURE: Insertion of a right lateral chest tube. SURGEON: Joe Cast M.D. WATCH CASE POLISHER: None. CONSENT: The patient was not able to give consent as he was barely conscious. Family could not be contacted. Therefore, the procedure is done as an emergency procedure. NOTE: The patient is on Plavix and Eliquis. By report x-ray would not undertake a catheter thoracentesis. I was then asked to drain him emergently. ANESTHESIA: Moderate sedate 2 mg Versed. DESCRIPTION OF PROCEDURE: Under satisfactory moderate sedation achieved with 2 mg of Versed, the patient was prepped and draped in the usual sterile fashion. Incision was made at the approximate sixth intercostal space. The tunnel was created in the chest over the rib with particular care to stay right on and above the seventh rib. A #24 chest tube was placed without difficulty and secured to the chest wall with a #2 Tevdek suture. Chest drained 3000 mL of serous fluid. It was sent for the requisite studies of chemistries, hematologies, cytologies, and bacteriologies. The patient tolerated the procedure well and a chest x-ray is pending.
[2020-11-17] MEDS: LEVEMIR (INSULIN DETEMIR) 1 UNITS/0.01ML SC SCH ×2 (09:00→20:15)
[2020-11-17 09:58] LABS: ABG BASE EXCESS 10.7 (-2.0-2.0); ABG HCO3 35.5 MEQ/L (22.0-26.0); ABG O2 LITER FLOW 21; ABG O2 SATURATION 90.4 % (95.0-99.0); ABG PARTIAL PRESSURE CO2 48.3 mmHg (35.0-45.0); ABG STANDARD HCO3 34.3 MEQ/L (22.0-26.0); ABG pH (ARTERIAL) 7.484 UNITS (7.350-7.450)
--- NOTE | 2020-11-17 10:40 | ECHO ---
ECHOCARDIOGRAM DATE OF PROCEDURE: 11/16/2020 Age: Gender: Height: 175 cm Weight: 79 kg REFERRING PHYSICIAN: Hai Pascual MD. INDICATION: Dyspnea. MEASUREMENTS: IVS 1.0 cm LV 4.0 cm LVPW 0.9 cm LA 4.0 cm Aorta 3.5 cm IVC 1.9 cm Mitral E wave velocity 110 A wave 37 E prime septal 6.2 E prime lateral 5.8 FINDINGS: This study is of acceptable technical quality. Underlying sinus rhythm. Left ventricle is of normal size. There is severe global hypokinesis that is especially pronounced in distal septum and apex. I estimated overall EF in the neighborhood of 25 to 30%. Right ventricle is normal size and grossly appears to have preserved systolic function. There is at least mild biatrial enlargement. Aortic valve is mildly sclerotic, but mobility of cusps is preserved. There are also mild degenerative abnormalities of mitral valve with mitral annular calcifications. Tricuspid and pulmonic valves appear normal. No pericardial effusion is noted. Inferior vena cava is dilated, but there is partial collapse with inspiration indicative of likely mildly elevated central venous pressure. Aortic root is normal. Aortic arch and abdominal aorta were not well seen. Doppler interrogation of aortic valve reveals no significant stenosis or insufficiency. There is mild mitral and mild tricuspid insufficiency. Calculated pulmonary artery pressure in the 60s corresponding to moderately severe pulmonary hypertension. Mitral inflow pattern and tissue Doppler imaging of mitral annulus revealed grade 2 diastolic dysfunction indicative of high left ventricular end-diastolic pressure. CONCLUSIONS: 1. Study is of acceptable technical quality, underlying sinus rhythm. 2. Normal LV size with global left ventricular systolic dysfunction more pronounced in the distal septum and apex and overall estimated LV EF 25 to 30%. Grade 2 diastolic dysfunction. 3. No hemodynamically significant valvular disease. 4. High central venous pressure and likely moderately severe pulmonary hypertension. [facility] [facility]
[2020-11-17] MEDS: HEPARIN SOD (PORCINE) 5000UNITS/ML 1ML VIAL/SYRINGE SQ SCH ×2 (10:46→20:16)
[2020-11-17] MEDS: CARVedilol 3.125 MG TAB PO SCH ×2 (10:47→20:27)
[2020-11-17] MEDS: metOLazone 5 MG TAB PO SCH (10:47)
[2020-11-17] MEDS: DOCUSATE SODIUM 100MG CAPSULE PO SCH ×2 (10:48→20:16)
[2020-11-17] MEDS: TAMSULOSIN 0.4 MG CAP PO SCH (10:48)
[2020-11-17] MEDS: amLODIPine 5 MG TAB PO SCH (10:48)
[2020-11-17] MEDS: PANTOPRAZOLE 40MG TAB (PROTONIX) PO SCH (10:48)
--- NOTE | 2020-11-17 11:52 | IPN ---
PROGRESS NOTE DATE: 11/17/2020 SUBJECTIVE: Mr. Reynoso is much more awake today. e isHe is He is able to answer questions and follow commands. He is still on a BiPAP. OBJECTIVE: VITAL SIGNS: Show a T-max of 97.6 with a heart rate that ranges between 63 and 68 in atrial fibrillation with a respiratory rate of 24 to 44 without the use of accessory muscles on BiPAP. He is 92% to 98% saturated on 35% FiO2 and whose blood pressure is ranging between 139/61 to 112/55. INTAKE AND OUTPUT: Over the past 24 hours has been recorded as 150 in and 4485 out for a negativity of 4300 mL. Almost all of that has been from chest tube output. He did have 1375 mL in urine. He weighs 81.7 kg today compared to 83 kg yesterday. There is no air leak. RESPIRATORY: He has equal breath sounds on either side with inspiratory rales. Percussion notes are full to the diaphragm. CARDIAC: Without murmurs, clicks, gallops, or rubs. I cannot feel his PMI. Heart sounds are quite distant. ABDOMEN: Soft and nontender. Bowel sounds are hypoactive, but present. EXTREMITIES: Show his remaining left leg shows no pretibial edema with a gangrenous right great toe. SKIN: Warm, dry, and perfused without cyanosis or mottling, including that of the nail beds and knees. NECK: Supple. There is no jugular venous distention. No subcutaneous emphysema. Trachea is midline. MOUTH: Not examined secondary to the BiPAP. EYES: Show his pupils equal and reactive. Extraocular muscles are intact. Sclerae nonicteric. NEUROLOGIC: Shows the patient to have a generalized tremor reminiscent of Parkinson's. He does move all three extremities. IMAGING DATA: His chest x-ray is vastly improved over yesterday's prior to his chest tube insertion. He has done poorly as he is still dependent on the BiPAP. There looks to be some post-expansion pulmonary edema in the right lower lobe. This may be an infiltrative process, but I suspect it is more likely expansion pulmonary edema. Costophrenic angles are not sharp. He has an increased CT ratio, but the heart does not look lobular. IMPRESSION: 1. Large pleural effusion. 2. Possible congestive heart failure. 3. Diabetes. 4. Hypertension. 5. Hypothyroidism. 6. Atrial fibrillation. 7. Peripheral vascular disease status post femoral popliteal bypass with a right knee amputation. PLAN AND DISCUSSION: I would recommend more aggressive diuresis as he is only on 60 mg q. 8 hours of Lasix. We will await the results of the echo. His TSH was normal and I cannot assign his pleural effusion to hypothyroid disease. While his albumin was low of only 3, it was not extraordinarily low that the hypoalbuminemia would explain his pleural effusion. We are therefore left with a beta natriuretic protein of 3300. We will await the echo to absolutely assign this to congestive failure. It has been noted that his pleural fluid was returned with a pH of 7.6 and an LDH of 69 with a corresponding LDH of 181 with 569 white cells, 78% was mononuclear lymphocytes and 21% were PMNs. Glucose was 270. This therefore looks like a transudative monocytic lymphocytic pleural effusion consistent with both chronicity and congestive heart failure.
--- NOTE | 2020-11-17 11:53 | CR ---
CONSULTATION DATE: 11/16/2020 REASON FOR CONSULTATION: The patient is seen at the request of the hospitalist service, Dr. Olivares, for a pleural effusion. HISTORY OF PRESENT ILLNESS: The patient is an 89-year-old white male who at the time of my seeing him is essentially unconscious with CO2 narcosis and I cannot get a history from him. He was admitted this morning with increasing shortness of breath over the past three weeks. He was found to have a large pleural effusion. He has a history of hypertension, peripheral vascular disease, and atrial fibrillation. He was found to have a very high beta natriuretic hormone and he is presumed to be in congestive heart failure. He was sent for a thoracentesis to radiology. He was on Plavix and Xarelto at home, and radiology deferred his thoracentesis suggesting I be contacted. PAST MEDICAL HISTORY: 1. Hypertension. 2. Rjp-xcddocr-aclpvnsxe diabetes. 3. Peripheral vascular disease status post femoral popliteal bypass. 4. Status post right keent-cqj-uzgx amputation. 5. Hypothyroidism. 6. Peripheral neuropathy. 7. BPH. 8. GERD. 9. Atrial fibrillation. SOCIAL HISTORY: Quit smoking many years ago. Denies illicit drug use or alcohol use to the hospitalist service when he was more alert. ALLERGIES: SIMVASTATIN. TRAVEL HISTORY: Not obtained. OCCUPATIONAL HISTORY: Not obtained. EXPOSURES: Not obtained. REVIEW OF SYSTEMS: Not obtained secondary to patient's obtundation. PHYSICAL EXAMINATION: GENERAL APPEARANCE: The patient is an 89-year-old male somnolence, on BiPAP, and unable to communicate. VITAL SIGNS: Temperature 98.5 with a heart rate of 65 in atrial fibrillation with a respiratory rate of 27 on BiPAP with FiO2 of 35% with O2 saturation of 98%. Blood pressure is 150/67. EYES: Pupils equal, round, reactive to light. Extraocular movements intact. Sclerae nonicteric. NOSE: Without deformity. MOUTH: Shows the mucous membranes to be pink and moist. Lips and commisures are without lesions. There is no thrush. HEAD: Normocephalic. NECK: Supple. There is no jugular venous distention. No subcutaneous emphysema. Trachea is midline. LUNGS: Show markedly decreased breath sounds on the right side. Percussion note is dull on the right side. CARDIAC: Shows an irregular rate and rhythm. I do not appreciate murmurs, clicks, gallops, or rubs. ABDOMEN: Soft and nontender. Bowel sounds are hypoactive, but present. EXTREMITIES: Show no pretibial edema on the left leg that is remaining. He does have a gangrenous great toe. There is no differential swelling of the upper extremities. SKIN: Warm, dry, and perfuse without cyanosis or mottling. NEUROLOGIC: Shows the patient to be somnolent, but looks to be moving all three extremities. PSYCHIATRIC: Shows the patient to be somnolent and barely responsive. LABORATORY DATA: His white count is 10.0 with hemoglobin and hematocrit of 9.3 and 32.4 respectively. Platelet count is 251,000. Differential yesterday showed 74% neutrophils, 9% lymphocytes, and 10% monocytes. There were no immature forms and no toxic granulations reported. Chemistries showed a total CO2 of 35 with the remainder of electrolytes normal. BUN and creatinine were 24 and 1.06 with a glucose of 266 and a calcium of 8.2 with a corresponding albumin of 3.0. AST and ALT are normal. There is no PT/INR on him. His D-dimer is 3001. Beta natriuretic peptide is 3300. His blood gases show a pH of 7.22 with a pCO2 of 99 and pO2 also of 99 with base excess of 9.4. An EKG is not on the chart. IMAGING DATA: His chest x-ray shows a right lower hemithorax opacity. CT confirms a large right pleural effusion. CT is done without contrast. He has a compressed lower lobe from the pleural effusion. He has minimal, but scattered mediastinal lymphadenopathy. His lung windows do not show any masses. There is fluid in the fissure. The adrenals have a normal configuration. IMPRESSION: 1. Large right pleural effusion. 2. Respiratory failure. 3. Hypercarbia. 4. Possible congestive heart failure (CHF) as an etiology of his pleural effusion. 5. Severe peripheral vascular disease. 6. Necrotic right toe. 7. CO2 narcosis. 8. Diabetes. 9. Hypertension. 10. Hypothyroidism. 11. Gastroesophageal reflux disease (GERD). 12. Atrial fibrillation. PLAN AND DISCUSSION: I will place a chest tube. He is at increased risk for bleeding, but I will stay right over the top of a rib in order to avoid the intercostal vessels. I suspect there is at least 2 liters in his chest. We will send it for all of the requisite studies to include cytologies, hematologies, chemistries, and bacteriologies. I will order an echo after I place the chest tube to see if this is systolic heart failure. He does need very aggressive diuresis and I will leave that to the medical service. He may get worse before he gets better with postexpansion pulmonary edema and he may need to be intubated with full mechanical ventilation. We will watch him closely over the next 48 hours.
[2020-11-17 15:08] LABS: MYCOPLASMA PNEUMONIAE IgG 785 U/mL (0-99); MYCOPLASMA PNEUMONIAE IgM <770 U/mL (0-769)
[2020-11-17] MEDS: NORCO, ANEXSIA 5/325MG TABLET (HYDROcodone/ACETAMINOPHEN) PO PRN (15:49)
--- NOTE | 2020-11-17 16:41 | IPNPDOC ---
Text Note Date of Service The patient was seen on 11/17/20. NOTE Subjective: Patient was somnolent in the morning, blood gas showed acute hyper carbic respiratory failure with pH 7.2, BiPAP was adjusted, subsequently patient's mental status significantly improved. Objective: GENERAL APPEARANCE: Somnolent male HEENT: no scleral icterus, plus JVD, EOMI CARDIOVASCULAR: Irregularly irregular LUNGS: Diminished more on the right side, bilateral crackles, chest tube in place ABDOMEN: soft & not tender w palpitation MUSCULOSKELETAL: no cyanosis, right below-knee amputation, left leg edema +3, unstageable left heel wound INTEGUMENT: no generalized pallor NEUROLOGICAL: cranial nerve function from 2-12 intact intact Assessment and plan Patient 89-year-old male history of hypertension, diabetes, peripheral vascular disease status post femoral-popliteal bypass, status post below knee right amputation, hypothyroidism, peripheral neuropathy, BPH, GERD, atrial fibrillation who presents with increased shortness of breath secondary to acute CHF Metabolic encephalopathy Secondary to CO2 narcosis Will adjust BiPAP Acute hypercarbic respiratory failure Most likely secondary to large right pleural effusion due to acute CHF exacerbation Thoracocentesis was done yesterday, 3 L of transudative fluid was evacuated Continue to monitor blood gas Continuing BiPAP X-ray showed Small but increased right apical pneumothorax and increased right lower lobe opacities. Acute combined systolic and diastolic CHF Echo showed Normal LV size with global left ventricle systolic dysfunction more pronounced in the distal septum and apex and overall severe left ventricle systolic dysfunction and estimated EF 25 to 30%. Grade 2 diastolic dysfunction. I's and O's Cardiac diet We intensified diuresis with Lasix IV, metolazone. I will ask terminal gauger to follow the patient after initial stabilization Pneumonia rule out Patient did not have fever, chills, cough, sputum , procalcitonin negative I discontinued antibiotics A. fib Oral targeted anticoagulation on hold. I will restart anticoagulation after chest tube removal Heart rate under control Peripheral vascular diseases Continue statin, Plavix and hold Hypertension Continue home meds Type 2 diabetes Continue insulin sliding scale Diabetes diet Detemir twice a day Lyrica on hold Hypothyroidism Synthroid BPH: Continue home Flomax VS,Fishbone, I+O VS, Fishbone, I+O Laboratory Tests 11/17/20 05:11 Vital Signs Date Time Temp Pulse Resp B/P (MAP) Pulse Ox O2 Delivery O2 Flow Rate FiO2 11/17/20 15:49 20 Nasal Cannula 2.0 11/17/20 14:00 67 96 11/17/20 12:00 97.8 132/60 (84) 11/17/20 09:00 21 I&O- Last 24 Hours up to 6 AM 11/17/20 06:00 Intake Total 0 ml Output Total 4775 ml Balance -4775 ml BRIGHT MERCHANT DO Nov 17, 2020 16:41
--- NOTE | 2020-11-17 18:16 | REP ---
INDICATION: pe COMPARISON: None. TECHNIQUE: Real time compression and duplex Doppler interrogation of the bilateral lower extremity deep venous system is performed. Compression ultrasound is performed of the bilateral peroneal and posterior tibial veins. The right peroneal vein is not visualized. FINDINGS: Bilaterally, the common femoral, superficial femoral and popliteal veins are fully compressible with transducer pressure and demonstrate normal spontaneous and phasic flow, without evidence of deep venous thrombosis. No thrombus is seen in the bilateral visualized portions of the peroneal and posterior tibial veins. IMPRESSION: No evidence of deep venous thrombosis of the bilateral lower extremity femoral popliteal venous system. <Electronically signed by Tung Isaac > 11/17/20 [id number]
[2020-11-17] MEDS: PRAVASTATIN 20 MG TAB PO SCH (20:15)
[2020-11-18] VITALS: BP 124/56
[2020-11-18] MEDS: LEVALBUTEROL 1.25 MG/0.5 ML CONCENTRATE NEB NEB SCH ×4 (02:26→20:32)
[2020-11-18 04:00] VITALS: BP 129/59
[2020-11-18] MEDS: FUROSEMIDE 100MG/10ML VIAL (J1940) IV SCH ×4 (04:18→22:20)
[2020-11-18 04:26] LABS: BASO % 0.4 % (0.0-1.0); EOS # 0.4 10^3/uL (0.0-0.5); EOS % 3.7 % (0.0-3.0); LYMPH # 1.5 10^3/uL (1.5-5.0); LYMPH % 13.9 % (24.0-44.0); MEAN CORPUSCULAR HEMOGLOBIN 21.6 pg (27.0-33.0); MEAN CORPUSCULAR VOLUME 72.1 fl (80.0-96.0); MONO # 1.3 10^3/uL (0.0-0.8); MONO % 11.6 % (2.0-8.0); NEUTROPHILS # 7.6 10^3/uL (1.5-8.5); NEUTROPHILS % 70.1 % (36.0-66.0); PLATELET COUNT, AUTOMATED 250 10^3/uL (150-450); RED BLOOD COUNT 4.16 10^6/uL (4.30-6.10); WHITE BLOOD COUNT 10.8 10^3/uL (4.0-10.0)
[2020-11-18 04:51] LABS: CALCIUM LEVEL 8.1 MG/DL (8.8-10.2); CREATININE FOR GFR 1.39 MG/DL (0.70-1.30); GLOMERULAR FILTRATION RATE 51.2 (>35); POTASSIUM SERUM 3.3 MEQ/L (3.5-5.1)
[2020-11-18] MEDS: LEVOTHYROXINE 50MCG TABLET (0.05MG) PO SCH (06:13)
[2020-11-18 08:00] VITALS: BP 128/61
[2020-11-18] MEDS ORDERED: POTASSIUM CHLORIDE 10 MEQ SR TABLET PO ONE (08:00)
--- NOTE | 2020-11-18 08:35 | REP ---
INDICATION: Pleural effusion, SOB, possible PNA COMPARISON: 11/17/2020 TECHNIQUE: PA and lateral. FINDINGS: Right-sided chest tube in stable position. Very small residual right apical pneumothorax identified. Right-sided airspace disease has improved since prior examination. Lateral view demonstrates continued moderate pleural effusion. Bibasilar atelectasis again noted. IMPRESSION: 1. Decreased right lower lobe airspace disease and decreased small residual right apical pneumothorax. 2. Right effusion and right basilar atelectasis again noted best on lateral radiograph. <Electronically signed by Larry Perea > 11/18/20 0841
--- NOTE | 2020-11-18 08:39 | ECGEPIP ---
[facility] - ED Test Date: 2020-11-16 Pat Name: PEGGY CARRILLO Department: Room: [place] [address] Gender: Male Clay [employer] Operator: Shaq ROPER : [id number] Requested By: FELICIANO Lion Order Number: [id number] Reading MD: Chas Torrez Measurements Intervals [place] Rate: 68 P: [place]: QRS: 16 QRSD: 90 T: -6 QT: 388 QTc: 412 Interpretive Statements Sinus rhythm with occasional premature ventricular complexes NSTTW ABNORMALITY(S) RHYTHM/RATE CHANGE COMPARED TO 03/24/20 Electronically Signed on 11-18-2020 8:39:36 EDT by Chas Torrez
[2020-11-18] MEDS: MOM 30ML SUSPENSION UDC PO PRN (08:40)
[2020-11-18] MEDS: HumaLOG INSULIN (NovoLOG) PER UNIT SC SCH ×4 (08:40→20:13)
[2020-11-18] MEDS: TAMSULOSIN 0.4 MG CAP PO SCH (08:42)
[2020-11-18] MEDS: metOLazone 5 MG TAB PO SCH (08:42)
[2020-11-18] MEDS: CARVedilol 3.125 MG TAB PO SCH ×2 (08:42→20:13)
[2020-11-18] MEDS: DOCUSATE SODIUM 100MG CAPSULE PO SCH ×2 (08:42→20:12)
[2020-11-18] MEDS: PANTOPRAZOLE 40MG TAB (PROTONIX) PO SCH (08:42)
[2020-11-18] MEDS: amLODIPine 5 MG TAB PO SCH (08:43)
[2020-11-18] MEDS: LEVEMIR (INSULIN DETEMIR) 1 UNITS/0.01ML SC SCH ×2 (08:43→20:14)
[2020-11-18] MEDS: HEPARIN SOD (PORCINE) 5000UNITS/ML 1ML VIAL/SYRINGE SQ SCH ×2 (08:44→20:14)
--- NOTE | 2020-11-18 10:51 | IPN ---
PROGRESS NOTE DATE: 11/18/2020 SUBJECTIVE: What a difference 48 hours makes. Mr. Reynoso is now completely awake and alert and conversational. I had to reintroduce myself as he did not remember me. VITAL SIGNS: His vital signs shows a T-max of 97.9 with a heart rate that ranges between 68 and 70, in atrial fibrillation with a respiratory rate that is constant at 21, 96% saturated on 30% FIO2 without use of accessory muscles. His blood pressure is ranging between 129/59 to 106/51. INTAKE AND OUTPUT: His intake and output over the past 24 hours has been recorded as 1010 in and 4010 out with a negativity of 3000 ml. He has put out 810 ml with the chest tube and there is no air leak. He has put out 3200 ml of urine output and he has orally taken in 1010 ml. He weighs 79.5 kilos today compared to 81.7 kilos yesterday. OBJECTIVE: LUNGS: He has some decreased breath sounds in the left lower hemithorax. Percussion is also dull in the left hemithorax lower down. Both sides show inspiratory rales. Right side additionally has some inspiratory coarse rhonchi. Percussion notes full to the diaphragm on the right. CARDIAC: Still shows distant sounds without murmurs, clicks, gallops or rubs. I cannot feel his PMI. S1 and S2 are normal. ABDOMEN: Soft, nontender, bowel sounds are positive. There is no hepatomegaly. No CVA tenderness. EXTREMITIES: His left extremity shows no pretibial edema. He still has the gangrenous changes on the great toe. There is no differential swelling of the upper extremities. SKIN: Warm, dry and perfused without cyanosis or mottling including that of nailbeds and knees. NECK: Supple. There is no jugular venous distention, no subcutaneous emphysema. Trachea is midline. HEENT: Mouth shows his mucous membranes to be pink and moist. Lips and commissures are without lesions. No thrush. Eyes shows pupils to be reactive. Extraocular muscles are intact. Sclera are nonicteric. NEUROLOGIC: Cranial nerves II through XII are intact. Gross sensation intact. Gait is not tested. PSYCHIATRIC: Awake, alert and oriented x3 with appropriate mood and affect, and conversational. LABORATORY DATA: His white count today is 10.8 with a hemoglobin and hematocrit of 9.0 and 30.0, essentially unchanged from yesterday with a platelet count of 215,000 and stable. Differential shows 70% neutrophils, 15% lymphocytes, 11% monocytes. There are no immature forms and no toxic granulations. His electrolytes shows a potassium of 3.3 with a total CO2 of 40 and a BUN and creatinine of 44 and 1.39, up from 36 and 1.07 yesterday. His Toradol was discontinued yesterday. Glucose is 134 with a calcium of 8.1. His chest x-ray today shows a lung fully expanded to chest wall. There may be an effusion on the lateral view comparable to the left side. Chest tube is in good place. Post expansion pulmonary edema is resolving on the right side. The cardiac silhouette is normal and not globular. His echocardiogram shows severe systolic dysfunction with an ejection fraction of 25% to 30%. That explains his congestive heart failure. IMPRESSION: 1. Large right pleural effusion resolved with a chest tube. 2. Respiratory failure, resolved. 3. Hypercarbia, resolving. 4. Severe systolic dysfunction. 5. Severe peripheral vascular disease. 6. Necrotic right toe. 7. CO2 narcosis, resolved. 8. Diabetes. 9. Hypertension. 10.Hypothyroidism. 11.GERD. 12.Atrial fibrillation. PLAN/DISCUSSION: He is still putting out too much out of the chest tube to remove it. He is being diuresed. I would recommend continuing aggressive diuresis strategy. Will continue to follow his chest x-rays as his left pleural effusion may have increased. We will wean his oxygen as tolerated. I would not be too concerned about his rising creatinine in the face of diuresis. I specifically discontinued his Toradol yesterday in anticipation of volume contraction with resultant decreased GFR.
[2020-11-18 12:00] VITALS: BP 112/52
--- NOTE | 2020-11-18 14:35 | IPNPDOC ---
Text Note Date of Service The patient was seen on 11/18/20. NOTE Subjective: Patient was alert and oriented in the morning. Answered my questions appropriately. Objective: GENERAL APPEARANCE: Not in acute distress HEENT: no scleral icterus, plus JVD, EOMI CARDIOVASCULAR: Irregularly irregular LUNGS: Diminished lung sounds bilaterally chest tube in place ABDOMEN: soft & not tender w palpitation MUSCULOSKELETAL: no cyanosis, right below-knee amputation, left leg edema +2, unstageable left heel wound INTEGUMENT: no generalized pallor NEUROLOGICAL: cranial nerve function from 2-12 intact intact Assessment and plan Patient 89-year-old male history of hypertension, diabetes, peripheral vascular disease status post femoral-popliteal bypass, status post below knee right amputation, hypothyroidism, peripheral neuropathy, BPH, GERD, atrial fibrillation who presents with increased shortness of breath secondary to acute CHF Metabolic encephalopathy Secondary to CO2 narcosis Resolved, DC BiPAP Acute hypercarbic respiratory failure Most likely secondary to large right pleural effusion due to acute CHF exacerbation Thoracocentesis was done on11/18/20, 3 L of transudative fluid was evacuated Today X-ray showed significant improvement in the right pleural effusion Acute combined systolic and diastolic CHF Echo showed Normal LV size with global left ventricle systolic dysfunction more pronounced in the distal septum and apex and overall severe left ventricle systolic dysfunction and estimated EF 25 to 30%. Grade 2 diastolic dysfunction. I's and O's Cardiac diet We intensified diuresis with Lasix IV, metolazone. I will ask legislative aide to follow the patient after initial stabilization Pneumonia rule out Patient did not have fever, chills, cough, sputum , procalcitonin negative I discontinued antibiotics A. fib Oral targeted anticoagulation on hold. I will restart anticoagulation after chest tube removal Heart rate under control Peripheral vascular diseases Continue statin, Plavix and hold Hypertension Continue home meds Type 2 diabetes Continue insulin sliding scale Diabetes diet Detemir twice a day Lyrica on hold Hypothyroidism Synthroid Unstageable left heel wound Appreciated/agree with prevention specialist consult BPH: Continue home Flomax VS,Fishbone, I+O VS, Fishbone, I+O Laboratory Tests 11/18/20 04:16 Vital Signs Date Time Temp Pulse Resp B/P (MAP) Pulse Ox O2 Delivery O2 Flow Rate FiO2 11/18/20 10:00 68 22 94 Nasal Cannula 1.0 11/18/20 08:42 128/61 11/18/20 08:00 98.9 11/18/20 04:00 30 I&O- Last 24 Hours up to 6 AM 11/18/20 06:00 Intake Total 1010 ml Output Total 4765 ml Balance -3755 ml BRIGHT MERCHANT DO Nov 18, 2020 14:35
[2020-11-18 16:00] VITALS: BP 149/64
--- NOTE | 2020-11-18 19:10 | CR ---
CONSULTATION DATE: 11/18/2020 CONSULTATION REQUESTED BY: Dr. Isreal Olivares REASON FOR CONSULTATION: Treatment suggestions for left great toe and 2nd toe wounds and left heel wound. Wound care telemedicine provides a visual assessment of a wound without the benefit of physical examination. It can assist with establishing a diagnosis and etiology. This allows for initial treatment plan. As wounds often change, it may be necessary to modify the original care. Our recommendation is periodic wound reassessment to monitor wound treatment. Failure to comply may result in nonhealing of the wound, possible complications, and/or a poor outcome. The recommendations given will serve as treatment options. As I will not be following this patient, this care plan will require the attending physician to give and sign the orders. Upon discharge, outpatient followup can be scheduled at our wound care center. Patient identified and verbal consent for the consultation was obtained. An 89-year-old male, admitted with congestive heart failure. 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 More recently, the patient developed arterial wounds involving his left foot, and underwent a limb salvage left femoral distal arterial bypass, performed in June [address] Piña in [place]. I have been asked to comment on treatment suggestions regarding wounds involving the left great toe and left second toe and left heel. Patient is diabetic. Hemoglobin A1c was unavailable. Patient's blood glucose while hospitalized has ranged from 134-210. He is alert, oriented, and does not appear in any significant pain. According to the nurse at bedside he is eating satisfactorily PHYSICAL EXAMINATION: There is a dry, fixed black eschar involving the distal aspect of the left great toe and the left 2nd toe. There is eschar demarcation without extension into the web space of either digit. On left heel there is a dry fixed, black eschar measuring 2.0 cm x 1.9 cm. the eschar edges are demarcated, and there is no erythema, maceration, or ischemic change involving the periwound. No drainage is seen. TREATMENT SUGGESTIONS: A heel float boot is mandatory to avoid pressure to the left heel. Foam dressings should be applied to all eschar areas for protection. The dressings should be changed every other day and inspected to see if any drainage is evident.. A hemoglobin A1c should be ordered, if not recently performed. Patient's diet should be supplemented with Glucerna and Clarnece. An arterial ultrasound of the left lower extremity is indicated to evaluate patency of the distal bypass. The indication for debridement of any of the eschars is fluctuation, purulent drainage, erythema of the periwound or extension and/or increase in size of the original wounds. MTDD
[2020-11-18 20:00] VITALS: BP 125/56
[2020-11-18] MEDS: PRAVASTATIN 20 MG TAB PO SCH (20:13)
[2020-11-19] VITALS (8 sets, daily range): BP systolic 121–144; BP diastolic 51–68
[2020-11-19] MEDS: LEVALBUTEROL 1.25 MG/0.5 ML CONCENTRATE NEB NEB SCH ×4 (01:52→19:22)
[2020-11-19 04:41] LABS: BASO % 0.5 % (0.0-1.0); EOS # 0.5 10^3/uL (0.0-0.5); EOS % 6.1 % (0.0-3.0); HEMATOCRIT 32.3 % (42.0-52.0); HEMOGLOBIN 9.7 g/dl (13.5-17.5); LYMPH # 1.3 10^3/uL (1.5-5.0); LYMPH % 14.3 % (24.0-44.0); MEAN CORPUSCULAR HEMOGLOBIN 21.7 pg (27.0-33.0); MEAN CORPUSCULAR VOLUME 72.1 fl (80.0-96.0); MONO # 1.2 10^3/uL (0.0-0.8); MONO % 14.2 % (2.0-8.0); NEUTROPHILS # 5.7 10^3/uL (1.5-8.5); NEUTROPHILS % 64.6 % (36.0-66.0); PLATELET COUNT, AUTOMATED 264 10^3/uL (150-450); RED BLOOD COUNT 4.48 10^6/uL (4.30-6.10); WHITE BLOOD COUNT 8.7 10^3/uL (4.0-10.0)
[2020-11-19] MEDS: FUROSEMIDE 100MG/10ML VIAL (J1940) IV SCH ×4 (04:52→22:05)
[2020-11-19 05:02] LABS: CALCIUM LEVEL 8.6 MG/DL (8.8-10.2); CREATININE FOR GFR 1.31 MG/DL (0.70-1.30); GLOMERULAR FILTRATION RATE 54.8 (>35); POTASSIUM SERUM 3.3 MEQ/L (3.5-5.1)
[2020-11-19] MEDS: LEVOTHYROXINE 50MCG TABLET (0.05MG) PO SCH (05:22)
[2020-11-19] MEDS ORDERED: POTASSIUM CHLORIDE 10 MEQ SR TABLET PO ONE (07:45)
[2020-11-19] MEDS: HumaLOG INSULIN (NovoLOG) PER UNIT SC SCH ×4 (08:20→22:00)
[2020-11-19] MEDS: metOLazone 5 MG TAB PO SCH (08:24)
[2020-11-19] MEDS: CARVedilol 3.125 MG TAB PO SCH ×2 (08:25→22:04)
[2020-11-19] MEDS: amLODIPine 5 MG TAB PO SCH (08:25)
[2020-11-19] MEDS: PANTOPRAZOLE 40MG TAB (PROTONIX) PO SCH (08:25)
[2020-11-19] MEDS: DOCUSATE SODIUM 100MG CAPSULE PO SCH ×2 (08:25→22:02)
[2020-11-19] MEDS: TAMSULOSIN 0.4 MG CAP PO SCH (08:25)
[2020-11-19] MEDS: LEVEMIR (INSULIN DETEMIR) 1 UNITS/0.01ML SC SCH ×2 (08:26→22:01)
[2020-11-19] MEDS: HEPARIN SOD (PORCINE) 5000UNITS/ML 1ML VIAL/SYRINGE SQ SCH ×2 (08:26→22:01)
--- NOTE | 2020-11-19 08:41 | REP ---
INDICATION: pleural effusion COMPARISON: 11/18/2020 TECHNIQUE: PA and lateral. FINDINGS: Right-sided chest tube in stable position and there is no obvious residual right pneumothorax or definite pleural effusion/consolidation. Lateral view best demonstrates small stable possibly left-sided pleural effusion. Left hemithorax is stable with retrocardiac opacity suggesting left lower lobe consolidation/partial collapse. Mediastinum and cardiac silhouette are stable and within normal limits. Skeletal structures stable. IMPRESSION: 1. Stable appearance of the right hemithorax. 2. Left lower lobe consolidation/partial collapse and suspected left pleural effusion. <Electronically signed by Larry Perea > 11/19/20 0898
[2020-11-19 11:18] LABS: HEMOGLOBIN A1c 8.5 %
[2020-11-19] MEDS: ACETAMINOPHEN TAB 650MG DOSE (2X325MG) PO PRN (12:35)
--- NOTE | 2020-11-19 13:25 | IPNPDOC ---
Text Note Date of Service The patient was seen on 11/19/20. NOTE Subjective: No any acute events overnight. No fever or chills. Patient stated that he feels much better today Objective: GENERAL APPEARANCE: Not in acute distress HEENT: no scleral icterus, plus JVD, EOMI CARDIOVASCULAR: Irregularly irregular LUNGS: Diminished lung sounds bilaterally chest tube in place ABDOMEN: soft & not tender w palpitation MUSCULOSKELETAL: no cyanosis, right below-knee amputation, left leg edema +2, unstageable left heel wound INTEGUMENT: no generalized pallor NEUROLOGICAL: cranial nerve function from 2-12 intact intact Assessment and plan Patient 89-year-old male history of hypertension, diabetes, peripheral vascular disease status post femoral-popliteal bypass, status post below knee right amputation, hypothyroidism, peripheral neuropathy, BPH, GERD, atrial fibrillation who presents with increased shortness of breath secondary to acute CHF Metabolic encephalopathy Secondary to CO2 narcosis Resolved Acute hypercarbic respiratory failure Resolved Most likely secondary to large right pleural effusion due to acute CHF exacerbation Thoracocentesis was done on11/18/20, 3 L of transudative fluid was evacuated Today X-ray showed Stable appearance of the right hemithorax. 2. Left lower lobe consolidation/partial collapse and suspected left pleural effusion. Dr. Cast follows patient Acute combined systolic and diastolic CHF Echo showed Normal LV size with global left ventricle systolic dysfunction more pronounced in the distal septum and apex and overall severe left ventricle systolic dysfunction and estimated EF 25 to 30%. Grade 2 diastolic dysfunction. I's and O's Cardiac diet We intensified diuresis with Lasix IV, metolazone. I will ask pumper hand to follow the patient after initial stabilization and chest tube removal Pneumonia rule out Patient did not have fever, chills, cough, sputum , procalcitonin negative I discontinued antibiotics A. fib Oral targeted anticoagulation on hold. I will restart anticoagulation after chest tube removal Heart rate under control Peripheral vascular diseases Continue statin, Plavix and hold Hypertension Continue home meds Type 2 diabetes Continue insulin sliding scale Diabetes diet Detemir twice a day Lyrica on hold Hypothyroidism Synthroid Unstageable left heel wound Follow Dr. Pugh recommendation Await arterial ultrasound of left lower extremity BPH: Continue home Flomax VS,Fishbone, I+O VS, Fishbone, I+O Laboratory Tests 11/19/20 04:04 Vital Signs Date Time Temp Pulse Resp B/P (MAP) Pulse Ox O2 Delivery O2 Flow Rate FiO2 11/19/20 12:00 97.5 72 18 121/56 (77) 96 Room Air 11/18/20 16:00 0.5 11/18/20 04:00 30 I&O- Last 24 Hours up to 6 AM 11/19/20 06:00 Intake Total 980 ml Output Total 5125 ml Balance -4145 ml BRIGHT MERCHANT DO Nov 19, 2020 13:25
--- NOTE | 2020-11-19 13:36 | IPN ---
PROGRESS NOTE DATE: 11/19/2020 SUBJECTIVE: Mr. Reynoso is doing well today, although he is a little bit more confused today and trying to get out of bed. Nonetheless he knows where he is. His vital signs show a T-max of 98.1 with a heart rate ranging between 68 and 74. ADDENDUM/CONTINUATION His heart rate is ranging between 68-74 in atrial fibrillation with a respiratory rate that is constant at 18 without the use of accessory muscles, who is 94%-96% saturated on room air and whose blood pressure is ranging between 121/56 to 144/65. His intake and output for the past 24 hours has been recorded as 980 in and 5380 out, for a negativity of 4400 mL. His chest tube output is down to 300 mL, and his urine output was 5000 mL. Weight today is 73.5 kg compared to 79.5 kg yesterday. PHYSICAL EXAMINATION: He has equal breath sounds on either side. I hear no wheezes or rhonchi. There are a few inspiratory rales at the very end of inspiration. Percussion notes are full to the diaphragm. Cardiac exam is without murmurs, clicks, gallops, or rubs. I cannot feel his point of maximal impulse (PMI). S1 and S2 are normal. Abdomen is soft and nontender. Bowel sounds are positive. There is no hepatomegaly. No costovertebral angle (CVA) tenderness. Extremities show no pretibial edema in the left leg. His right great toe is covered but has been seen by Dr. Pugh, and it is dry gangrene. Skin is warm, dry, and perfused without cyanosis or mottling, including that of the nailbeds and knees. Neck is supple. There is no jugular venous distention. No subcutaneous emphysema. Trachea is midline. Mouth shows the mucous membranes to be pink and moist. Lips and commissures without lesions. No thrush. Eyes show his pupils to be equal and reactive. Extraocular motion intact. Sclerae anicteric. Neurologic shows II-XII intact. Normal gross motor, gross sensation intact. Gait is not tested. Psychiatric shows him to be slightly confused today but does know where he is. His white count today is 8.7 with a hemoglobin and hematocrit of 9.7 and 32.3, up from 9.0 and 30% yesterday, consistent with hemoconcentration. Platelet count is 264 with a differential that shows 64% neutrophils, 14% lymphocytes, 14% monocytes. There are no immature forms or toxic granulations. His chemistries today show potassium 3.3 with a BUN and creatinine of 45 and 1.31, essentially unchanged from yesterday. Glucose is 205 with a calcium of 8.6. His chest x-ray today shows his lung fully expanded to the chest wall. Chest tube is in good place. I see no infiltrates. There may be a slight pleural effusion of meniscus on the lateral film. IMPRESSION: 1. Large right pleural effusion, resolved with a chest tube and decreasing. 2. Respiratory failure, resolved. 3. Hypercapnia, resolving. 4. Severe systolic dysfunction. 5. Severe peripheral vascular disease. 6. Necrotic right toe. 7. CO2 narcosis, resolved. 8. Diabetes. 9. Hypertension. 10. Hypothyroidism. 11. Gastroesophageal reflux disease. 12. Atrial fibrillation. PLAN AND DISCUSSION: He has had an impressive diuresis. It looks as though he is doing quite well with it. Chest tube output has markedly gone down. I will discontinue chest tube suction today. Hopefully tomorrow I will be able to remove the chest tube.
--- NOTE | 2020-11-19 15:47 | REP ---
INDICATION: to check patency of graft to left lower leg. COMPARISON: None. TECHNIQUE: Real time isaac scale and Duplex Doppler evaluation of the left lower extremity arterial vasculature using linear high frequency transducer. FINDINGS: The ankle to brachial index of the left lower extremity is 0.7. Severe plaque and stents are seen in the mid to distal superficial femoral artery. There is a patent bypass graft popliteal artery to mid to distal posterior tibial artery. Flow velocities within the bypass graft range between 17.2 in 28.1 centimeters/second. There are diffuse biphasic waveforms, with monophasic waveforms throughout the posterior tibial artery and in the distal anterior tibial artery. There is reversal of flow in the mid posterior tibial artery superior to the anastomosis of the bypass graft. PSV(cm/sec) Common femoral artery: 150 cm/s Profunda femoris artery: 132 cm/s Proximal superficial femoral artery: 126 cm/s Mid superficial femoral artery: 116 cm/s Distal superficial femoral artery: 118 cm/s Popliteal artery: 98 cm/s Proximal DANIELITO: 36 cm/s Tibioperoneal trunk: 38 cm/s Proximal FROG SHAKER: 59 cm/s Distal FROG SHAKER: 89 cm/s Distal DANIELITO: 29 cm/s IMPRESSION: Patent popliteal to posterior tibial artery bypass graft as discussed above. <Electronically signed by Tung Isaac > 11/19/20 [id number]
[2020-11-19 19:08] LABS: BODY FLUID CULTURE Not indicated. (.); LEGIONELLA ANTIGEN URINE Negative (Negative); ORGANISM ID Not indicated. (.); SPECIMEN SOURCE Urine (.); URINE STREP PNEUMONIAE ANTIGEN Negative (Negative)
[2020-11-19] MEDS: PRAVASTATIN 20 MG TAB PO SCH (22:02)
[2020-11-19] MEDS: NORCO, ANEXSIA 5/325MG TABLET (HYDROcodone/ACETAMINOPHEN) PO PRN (22:07)
[2020-11-20] VITALS (14 sets, daily range): BP systolic 117–149; BP diastolic 56–66
[2020-11-20] MEDS: LEVALBUTEROL 1.25 MG/0.5 ML CONCENTRATE NEB NEB SCH ×4 (02:20→19:43)
[2020-11-20 04:56] LABS: BASO % 0.4 % (0.0-1.0); EOS # 0.6 10^3/uL (0.0-0.5); EOS % 6.9 % (0.0-3.0); HEMATOCRIT 33.5 % (42.0-52.0); LYMPH # 1.7 10^3/uL (1.5-5.0); LYMPH % 18.2 % (24.0-44.0); MEAN CORPUSCULAR HEMOGLOBIN 21.4 pg (27.0-33.0); MEAN CORPUSCULAR HGB CONC 29.9 g/dl (32.0-36.5); MEAN CORPUSCULAR VOLUME 71.6 fl (80.0-96.0); MONO # 1.2 10^3/uL (0.0-0.8); MONO % 13.3 % (2.0-8.0); NEUTROPHILS # 5.6 10^3/uL (1.5-8.5); NEUTROPHILS % 60.8 % (36.0-66.0); PLATELET COUNT, AUTOMATED 303 10^3/uL (150-450); RED BLOOD COUNT 4.68 10^6/uL (4.30-6.10); WHITE BLOOD COUNT 9.1 10^3/uL (4.0-10.0)
[2020-11-20] MEDS: FUROSEMIDE 100MG/10ML VIAL (J1940) IV SCH (05:04)
[2020-11-20] MEDS: LEVOTHYROXINE 50MCG TABLET (0.05MG) PO SCH (05:04)
[2020-11-20 05:52] LABS: CREATININE FOR GFR 1.36 MG/DL (0.70-1.30); GLOMERULAR FILTRATION RATE 52.5 (>35); POTASSIUM SERUM 3.3 MEQ/L (3.5-5.1)
[2020-11-20] MEDS: HumaLOG INSULIN (NovoLOG) PER UNIT SC SCH ×4 (07:30→20:55)
--- NOTE | 2020-11-20 08:19 | IPNPDOC ---
Text Note Date of Service The patient was seen on 11/20/20. NOTE Hospitalist Progress Note Subjective: And patient was asleep when I entered the room, but he was easily aroused him. He states that he is feeling well today, and he is not feeling short of breath at this time. He does not have any specific complaints. He is not coughing. Objective: General: Awake, alert, oriented 3. Not in any acute distress. HEENT: Head normocephalic, atraumatic, sclera are nonicteric. Hearing is grossly intact to conversation. Perhaps he still does have some mild JVD. Respiratory: Clear to auscultation bilaterally with no wheezes, rales, or rhonchi. Cardiovascular: Distant heart sounds, I cannot perceive any rubs, gallops, or murmur. Abdomen: Soft, nontender, nondistended, no hepatosplenomegaly appreciated. Bowel sounds present. Extremities: 2+ pulses in the radial and dorsalis pedis bilaterally. No evidence of clubbing or cyanosis. Status post right BKA. He does have a wound on the left great toe. He no longer appears to be fluid overloaded at this time, he does not have any pitting edema in the lower extremity or the base of his thighs bilaterally. She does exhibit some tenting in the upper extremity, and his mucous membranes do appear to be dry at this time. Assessment: Acute decompensation of combined systolic and diastolic CHF with estimated ejection fraction of 25-30% and grade 2 diastolic dysfunction Metabolic encephalopathy secondary to CO2 narcosis Acute hypercarbic respiratory failure, resolved Prior suspicion for pneumonia, it does not appear that he had this, antibiotics were discontinued Chronic Atrial fibrillation Peripheral vascular disease Hypertension Type 2 diabetes mellitus Hypothyroidism Left lower extremity wound Benign prostatic hypertrophy Plan: He has diuresed quite well, and this time he appears to be euvolemic, if in fact perhaps a little bit dry. I will resume his home dose of Lasix 40 mg by mouth daily, and discontinue the IV Lasix and metolazone. His anticoagulation and antiplatelet medications for atrial fibrillation per ipheral vascular disease are still on hold, these can be resumed once his chest tube has been removed. The determination as to when to remove his chest tube was made by cardiothoracic surgery. Otherwise, no changes in the remainder of his regimen regarding his hypertension, diabetes, hypothyroidism, and the remainder of his home medications. VS,Fishbone, I+O VS, Fishbone, I+O Laboratory Tests 11/20/20 04:34 Vital Signs Date Time Temp Pulse Resp B/P (MAP) Pulse Ox O2 Delivery O2 Flow Rate FiO2 11/20/20 04:00 2.0 11/20/20 00:00 97.4 69 18 121/56 (77) 92 Nasal Cannula 11/18/20 04:00 30 I&O- Last 24 Hours up to 6 AM 11/20/20 05:59 Intake Total 990 ml Output Total 3610 ml Balance -2620 ml ANTOINETTE FELIX DO Nov 20, 2020 08:19
[2020-11-20] MEDS ORDERED: POTASSIUM CHLORIDE 10 MEQ SR TABLET PO ONE ×2 (09:00→21:00)
--- NOTE | 2020-11-20 09:10 | REP ---
INDICATION: pleural effusion. COMPARISON: Comparison chest x-ray November 19, 2020. TECHNIQUE: Two views.. FINDINGS: Right-sided chest tube remains in place. There is no evidence of pneumothorax. There is blunting of the posterior pleural angles on the lateral radiograph similar to yesterday's study. There is hazy opacity in the left base on the frontal view which may be a small amount of left pleural effusion. Heart size is borderline unchanged. No infiltrate is seen. Platelike atelectasis versus linear fibrosis is noted in the left base unchanged. IMPRESSION: Suspect small left effusion. Right chest tube remains in place.. <Electronically signed by Raheem Ramires > 11/20/20 0906
[2020-11-20 11:17] LABS: ABG BASE EXCESS 22.6 (-2.0-2.0); ABG HCO3 48.8 MEQ/L (22.0-26.0); ABG O2 SATURATION 96.8 % (95.0-99.0); ABG PARTIAL PRESSURE CO2 61.1 mmHg (35.0-45.0); ABG PARTIAL PRESSURE O2 84.4 mmHg (75.0-100.0); ABG STANDARD HCO3 47.1 MEQ/L (22.0-26.0); ABG TOTAL CO2 50.6 MEQ/L (23.0-31.0)
[2020-11-20] MEDS: HEPARIN SOD (PORCINE) 5000UNITS/ML 1ML VIAL/SYRINGE SQ SCH ×2 (11:30→21:01)
[2020-11-20] MEDS: LEVEMIR (INSULIN DETEMIR) 1 UNITS/0.01ML SC SCH ×2 (11:31→20:56)
[2020-11-20] MEDS ORDERED: NALOXONE INJ 0.4MG/1ML VIAL (J2310 PER 1MG) IV ONE (12:00)
--- NOTE | 2020-11-20 12:25 | IPN ---
PROGRESS NOTE DATE: 11/20/2020 Mr. Reynoso is quite somnolent today. He was given a [place] last night, and his somnolence is being attributed to the [place]. His vital signs show a maximum temperature of 97.4 with a heart rate that ranges between 68-69 in atrial fibrillation, well controlled, with a blood pressure that is ranging between 149/67 to 117/59, and a respiratory rate of 18-22 without the use of accessory muscles, who is 92%-98% saturated on 2 liters nasal cannula. His intake and output for the past 24 hours has been recorded as 630 in and 4060 out, for a negativity of 3400 mL. He has put out 75 mL from the chest tube, and there is no air leak. He has put 3745 mL in urine. He weighs 72.5 kg today compared to 73.5 kg yesterday. PHYSICAL EXAMINATION: He has bilateral inspiratory crackles and rales on both sides, particularly in the lower hemithoraces. Percussion notes are full to the diaphragm. Cardiac exam is without murmurs, clicks, gallops, or rubs. I cannot feel her point of maximal impulse (PMI). S1 and S2 are normal. Abdomen is soft and nontender. Bowel sounds are positive. There is no hepatomegaly. No costovertebral angle (CVA) tenderness. His left extremity shows no pretibial edema, no calf tenderness, no differential swelling of the upper extremities. His skin is warm, dry, and perfused without cyanosis, including that of the nailbeds and knees. Neck is supple. There is no jugular venous distention. No subcutaneous emphysema. Trachea is midline. Mouth shows the mucous membranes to be pink and moist. Lips and commissures without lesions. No thrush. Eyes show his pupils to be equal and reactive. Extraocular motion intact. Sclerae anicteric. Neurologic shows II-XII intact. Normal gross motor, gross sensation intact. Gait is not tested. Psychiatric shows him to be somnolent. His white count today is 9.1 with a hemoglobin and hematocrit of 10.0 and 33.5, slightly up from 9.7 and 32.3 yesterday. Platelet count is 303 and stable, and differential shows 60% neutrophils, 18% lymphocytes, 13% monocytes. There are no immature forms or toxic granulations. His electrolytes show a potassium of 3.3, unchanged from yesterday, with a total CO2, however, of 50, and a BUN and creatinine of 47 and 1.36. His anion gap is only 1. There are no blood gases done today, and I will order one. He may need to go back on bilevel positive airway pressure (BiPAP) for severe CO2 retention. His chest x-ray shows his lung fully expanded to the chest wall. Costophrenic angles are sharp, and the chest tube is in good place. There is no subcutaneous emphysema. CT ratio is normal. IMPRESSION: 1. Large right pleural effusion, resolved with a chest tube and decreased. 2. Respiratory failure, resolved. 3. Hypercapnia, perhaps returning. 4. Severe systolic dysfunction. 5. Severe peripheral vascular disease. 6. Necrotic right toe. 7. CO2 narcosis, probably reappearing. 8. Diabetes. 9. Hypertension. 10. Hypothyroidism. 11. Gastroesophageal reflux disease. 12. Atrial fibrillation. 13. 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 PLAN AND DISCUSSION: His chest tube has only put out 75 mL, and I will therefore remove it. I am concerned about his somnolence. One [place] should not explain him being so somnolent. He moves all his extremities. I do not think this represents a lateralizing cerebrovascular accident (CVA). I will obtain a blood gas.
[2020-11-20] MEDS: CARVedilol 3.125 MG TAB PO SCH ×2 (12:37→20:57)
[2020-11-20] MEDS: TAMSULOSIN 0.4 MG CAP PO SCH (12:37)
[2020-11-20] MEDS: amLODIPine 5 MG TAB PO SCH (12:37)
[2020-11-20] MEDS: PANTOPRAZOLE 40MG TAB (PROTONIX) PO SCH (12:37)
[2020-11-20] MEDS: DOCUSATE SODIUM 100MG CAPSULE PO SCH ×2 (12:37→20:58)
[2020-11-20] MEDS: KCL 10MEQ/100ML SWI (KRUN) 10 MEQ in IV 1 EA IV SCH ×4 (14:51→19:22)
[2020-11-20] MEDS: PRAVASTATIN 20 MG TAB PO SCH (20:57)
[2020-11-20] MEDS: ACETAMINOPHEN TAB 650MG DOSE (2X325MG) PO PRN (22:25)
[2020-11-21 00:01] VITALS: BP 117/58
[2020-11-21] MEDS: LEVALBUTEROL 1.25 MG/0.5 ML CONCENTRATE NEB NEB SCH ×4 (01:22→19:51)
[2020-11-21 04:00] VITALS: BP 116/56
[2020-11-21 04:31] LABS: BASO % 0.4 % (0.0-1.0); EOS # 0.5 10^3/uL (0.0-0.5); EOS % 5.9 % (0.0-3.0); HEMATOCRIT 33.4 % (42.0-52.0); LYMPH # 1.7 10^3/uL (1.5-5.0); LYMPH % 18.8 % (24.0-44.0); MEAN CORPUSCULAR HEMOGLOBIN 21.2 pg (27.0-33.0); MEAN CORPUSCULAR HGB CONC 29.9 g/dl (32.0-36.5); MEAN CORPUSCULAR VOLUME 70.8 fl (80.0-96.0); MONO # 1.1 10^3/uL (0.0-0.8); NEUTROPHILS # 5.6 10^3/uL (1.5-8.5); NEUTROPHILS % 62.6 % (36.0-66.0); PLATELET COUNT, AUTOMATED 339 10^3/uL (150-450); RED BLOOD COUNT 4.72 10^6/uL (4.30-6.10)
[2020-11-21 05:02] LABS: CALCIUM LEVEL 8.7 MG/DL (8.8-10.2); CREATININE FOR GFR 1.32 MG/DL (0.70-1.30); GLOMERULAR FILTRATION RATE 54.4 (>35); POTASSIUM SERUM 3.6 MEQ/L (3.5-5.1)
[2020-11-21] MEDS: LEVOTHYROXINE 50MCG TABLET (0.05MG) PO SCH (06:21)
[2020-11-21 07:50] LABS: PHOSPHORUS LEVEL 3.5 MG/DL (2.5-4.9)
[2020-11-21 08:00] VITALS: BP 147/67
[2020-11-21] MEDS: LEVEMIR (INSULIN DETEMIR) 1 UNITS/0.01ML SC SCH ×2 (08:34→20:49)
[2020-11-21] MEDS: HEPARIN SOD (PORCINE) 5000UNITS/ML 1ML VIAL/SYRINGE SQ SCH (08:34)
[2020-11-21] MEDS: amLODIPine 5 MG TAB PO SCH (08:35)
[2020-11-21] MEDS: PANTOPRAZOLE 40MG TAB (PROTONIX) PO SCH (08:35)
[2020-11-21] MEDS: TAMSULOSIN 0.4 MG CAP PO SCH (08:35)
[2020-11-21] MEDS: DOCUSATE SODIUM 100MG CAPSULE PO SCH ×2 (08:35→20:49)
[2020-11-21] MEDS: CARVedilol 3.125 MG TAB PO SCH ×2 (08:35→20:49)
[2020-11-21] MEDS: HumaLOG INSULIN (NovoLOG) PER UNIT SC SCH ×4 (08:39→20:50)
--- NOTE | 2020-11-21 08:42 | IPNPDOC ---
Text Note Date of Service The patient was seen on 11/21/20. NOTE Hospitalist Progress Note Subjective: Although the patient was somnolent throughout much of the day yesterday, apparently he was up quite a bit of the night. Also it appears that he is feeling discouraged and perhaps depressed about his current situation, he indicated to her night nurse that he just wants to give up and . When questioned about this morning fell, he simply states that he is tired, does not seem to want to broach the subject. Otherwise, he does not voice any additional complaints at this time. Objective: General: Awake, alert, oriented 3. Not in any acute distress. HEENT: Head normocephalic, atraumatic, sclera are nonicteric. Hearing is grossly intact to conversation. Tongue appears more moist today Respiratory: Mild crackles noted at the left base, but otherwise remainder of the left and right lung armenta are clear to auscultation today. Still has a dressing in place on the right thorax from chest tube that was removed yesterday. Cardiovascular: Distant heart sounds, I cannot perceive any rubs, gallops, or murmur. Abdomen: Soft, nontender, nondistended, no hepatosplenomegaly appreciated. Bowel sounds present. Extremities: 2+ pulses in the radial and dorsalis pedis bilaterally. No evidence of clubbing or cyanosis. Status post right BKA. He does have a wound on the left great toe. Once again, no pitting edema noted in his left lower extremity. Assessment: Acute decompensation of combined systolic and diastolic CHF with estimated ejection fraction of 25-30% and grade 2 diastolic dysfunction Metabolic encephalopathy secondary to CO2 narcosis Acute hypercarbic respiratory failure, resolved Prior suspicion for pneumonia, it does not appear that he had this, antibiotics were discontinued Chronic Atrial fibrillation Peripheral vascular disease Hypertension Type 2 diabetes mellitus Hypothyroidism Left lower extremity wound Benign prostatic hypertrophy Plan: - Once again appears euvolemic today, will continue with his home dose of Lasix 40 mg daily. -Will resume anticoagulation and antiplatelet medications for atrial fibrillation and peripheral vascular disease today - I reviewed the xray, shows good aeration of the lungs, perhaps a small effusion on the left side (still waiting on official read) - Otherwise, no changes in the remainder of his regimen regarding his hypertension, diabetes, hypothyroidism, and the remainder of his home medications. VS,Fishbone, I+O VS, Fishbone, I+O Laboratory Tests 11/21/20 04:08 Vital Signs Date Time Temp Pulse Resp B/P (MAP) Pulse Ox O2 Delivery O2 Flow Rate FiO2 11/21/20 08:35 67 147/67 11/21/20 04:00 96.9 20 96 Nasal Cannula 1.0 11/18/20 04:00 30 I&O- Last 24 Hours up to 6 AM 11/21/20 06:00 Intake Total 680 ml Output Total 2000 ml Balance -1320 ml ANTOINETTE FELIX DO Nov 21, 2020 08:42
[2020-11-21] MEDS: ACETAMINOPHEN TAB 650MG DOSE (2X325MG) PO PRN (08:49)
[2020-11-21] MEDS: FUROSEMIDE 40 MG TAB PO SCH (08:51)
--- NOTE | 2020-11-21 09:03 | REP ---
INDICATION: pleural effusion. COMPARISON: Comparison chest x-ray November 20, 2020. TECHNIQUE: Two views.. FINDINGS: Sitting AP and lateral views demonstrate only very slight blunting of the posterior pleural angles on the lateral radiograph. This is similar to yesterday's radiograph. The lateral pleural angles are sharp. The diaphragms are not obscured on either side. No focal infiltrate is seen. Cardiomegaly is again observed. The thoracic aorta is calcific and somewhat tortuous. There is diffuse osteopenia overall, there is mild hyperinflation. In the interval since yesterday's radiograph, the right chest tube is been removed. There is a tiny collection of apical pleural air on the right. IMPRESSION: Hyperinflation. Very slightly blunted posterior pleural angles. Status post right chest tube removal. Tiny right apical pneumothorax.. <Electronically signed by Raheem Ramires > 11/21/20 [id number]
[2020-11-21] MEDS: CLOPIDOGREL 75 MG TAB PO SCH (10:25)
[2020-11-21 12:00] VITALS: BP 122/58
[2020-11-21 15:05] VITALS: BP 113/48
[2020-11-21] MEDS: ONDANSETRON 4MG/2ML VIAL IV PRN (15:19)
[2020-11-21] MEDS: RIVAROXABAN 15 MG TAB (XARELTO) PO SCH (17:02)
[2020-11-21 20:17] VITALS: BP 133/59
[2020-11-21] MEDS: PRAVASTATIN 20 MG TAB PO SCH (20:49)
[2020-11-22] MEDS: LEVALBUTEROL 1.25 MG/0.5 ML CONCENTRATE NEB NEB SCH ×4 (00:39→20:00)
[2020-11-22] MEDS: LEVOTHYROXINE 50MCG TABLET (0.05MG) PO SCH (05:38)
[2020-11-22 05:57] VITALS: BP 131/62
[2020-11-22 06:52] LABS: BASO # 0.1 10^3/uL (0.0-0.2); BASO % 0.7 % (0.0-1.0); EOS # 0.5 10^3/uL (0.0-0.5); EOS % 6.4 % (0.0-3.0); HEMATOCRIT 32.3 % (42.0-52.0); HEMOGLOBIN 9.8 g/dl (13.5-17.5); LYMPH # 1.2 10^3/uL (1.5-5.0); LYMPH % 15.9 % (24.0-44.0); MEAN CORPUSCULAR HEMOGLOBIN 21.3 pg (27.0-33.0); MEAN CORPUSCULAR HGB CONC 30.3 g/dl (32.0-36.5); MEAN CORPUSCULAR VOLUME 70.2 fl (80.0-96.0); MONO # 0.9 10^3/uL (0.0-0.8); MONO % 11.7 % (2.0-8.0); NEUTROPHILS # 4.9 10^3/uL (1.5-8.5); NEUTROPHILS % 64.8 % (36.0-66.0); PLATELET COUNT, AUTOMATED 300 10^3/uL (150-450); WHITE BLOOD COUNT 7.5 10^3/uL (4.0-10.0)
[2020-11-22 07:05] LABS: CALCIUM LEVEL 8.1 MG/DL (8.8-10.2); CREATININE FOR GFR 1.49 MG/DL (0.70-1.30); GLOMERULAR FILTRATION RATE 47.3 (>35); POTASSIUM SERUM 3.4 MEQ/L (3.5-5.1)
[2020-11-22] MEDS: LEVEMIR (INSULIN DETEMIR) 1 UNITS/0.01ML SC SCH ×2 (08:06→21:50)
[2020-11-22] MEDS: HumaLOG INSULIN (NovoLOG) PER UNIT SC SCH ×4 (08:06→21:00)
[2020-11-22] MEDS: PANTOPRAZOLE 40MG TAB (PROTONIX) PO SCH (08:06)
[2020-11-22] MEDS: TAMSULOSIN 0.4 MG CAP PO SCH (08:07)
[2020-11-22] MEDS: DOCUSATE SODIUM 100MG CAPSULE PO SCH ×2 (08:07→21:49)
[2020-11-22] MEDS: CLOPIDOGREL 75 MG TAB PO SCH (08:07)
[2020-11-22] MEDS: FUROSEMIDE 40 MG TAB PO SCH (08:07)
[2020-11-22] MEDS: CARVedilol 3.125 MG TAB PO SCH ×2 (08:10→21:49)
[2020-11-22] MEDS: amLODIPine 5 MG TAB PO SCH (08:10)
--- NOTE | 2020-11-22 09:28 | IPN ---
PROGRESS NOTE DATE: 11/21/2020 SUBJECTIVE: Mr. Reynoso is much more awake today. He is doing well and his pain is being well controlled at the chest tube insertion site. The next step in his recovery is ambulation and getting him up and around. OBJECTIVE: His vital signs show a T-max of 97.3 with a heart rate that ranges between 66 and 72 in atrial fibrillation with a respiratory rate of 16-20 without the use of accessory muscles who is 90-97% saturated on 1 liter nasal cannula. His blood pressure is ranging between 147/67 to 116/56. His intake and output the past 24 hours has been recorded as 1040 in and 2440 out for a negativity of 1400 mL. His chest tube was removed yesterday. Weight today is 77.2 kg compared to 72.5 kg yesterday. On physical examination I still hear some faint inspiratory rales towards the end of inspiration in the right hemithorax. Right side shows normal vesicular sounds. Percussion notes are full through the diaphragm. Cardiac exam is without murmurs, clicks, gallops, or rubs. I cannot feel his PMI. S1, S2 are normal. Abdomen is soft, nontender. Bowel sounds are positive. There is no hepatomegaly. No CVA tenderness. Extremities show no pretibial edema, no calf tenderness, no differential swelling of the upper extremities. Skin is warm and dry and perfused without cyanosis or mottling including that of nailbeds and knees. Neck is supple. There is no jugular venous distention, no subcutaneous emphysema. Trachea is midline. Mouth shows the mucous membranes to be pink and moist. Lips and gums show no lesions, no thrush. Eyes show his pupils to be equal, round, and reactive. Extraocular movements are intact. Sclerae are nonicteric. Neuro shows II-XII intact with normal gross motor, gross sensation intact. Gait is not tested. Psychiatric shows him to be awake and alert and oriented times three with appropriate mood and affect and conversational. His white count today is 9.0 with a hemoglobin and hematocrit of 10.0 and 33.4, unchanged from yesterday with a platelet count of 339 and stable. Differential shows 60% neutrophils, 18% lymphocytes, 12% monocytes. There were no immature forms or toxic granulations. His chemistries today show a sodium of 134 with a potassium of 3.6. His total CO2 is better today at 44 than it was yesterday at 50. BUN and creatinine are 48 and 1.32, slightly better than yesterday. Glucose is 150 with a calcium of 8.7 and a phosphorus of 3.5. His blood gasses yesterday showed a pH of 7.52 with a pCO2 of 61, a pO2 of 84 and a base excess of 22.6. This is improved from his prior blood gasses where he ran pCO2s between 99 and 81. His total CO2 is improving. His chest x-ray today shows his lungs fully expanded to the chest wall. There is a small rim of an airspace maybe 2 mm at the top of the lung on the right side. Right costophrenic is every so minimally blunted. Left costophrenic angle is sharp. CT ratio is normal. Lateral film does not show any infiltrates although he looks as though he still has a little bit of compression in the right lower lobe. ASSESSMENT: 1. Large right-sided pleural effusion, resolved with a chest tube. 2. Respiratory failure, resolved. 3. Hypercapnia, improving. 4. Severe systolic dysfunction. 5. Severe peripheral vascular disease. 6. Necrotic right toe. 7. CO2 narcosis, resolving. 8. Diabetes. 9. Hypertension. 10. Hypothyroidism. 11. Gastroesophageal reflux disease. 12. Atrial fibrillation. 13. 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 PLAN AND DISCUSSION: His pleural effusion is now almost completely resolved. He is being diuresed. The next step in his recovery is ambulation. I have asked nursing staff to at least get him to a chair today and to have physical therapy work with him as he is an amputee. His necrotic great toe is being followed by the wound service. It is dry at this point in time. As his pleural effusion is resolving, I will withdraw from the case to be available for followup should that be necessary. We will remove his chest tube dressing today.
--- NOTE | 2020-11-22 09:49 | REP ---
INDICATION: CHF COMPARISON: 11/21/2020 TECHNIQUE: PA and lateral. FINDINGS: The mediastinum and cardiac silhouette are stable. The lung armenta demonstrate chronic appearing interstitial changes. Trace left basilar atelectasis and possible small pleural effusions again noted and unchanged. The skeletal structures are intact and normal. IMPRESSION: 1. No significant change from prior examination. Small pleural effusions and left basilar atelectasis best identified on lateral radiograph again noted. 2. No new acute process. <Electronically signed by Larry Perea > 11/22/20 0935
--- NOTE | 2020-11-22 10:54 | IPNPDOC ---
Text Note Date of Service The patient was seen on 11/22/20. NOTE Hospitalist Progress Note Subjective: The patient reports that he is feeling well today. He does have a small mild nonproductive cough, but otherwise has no complaints. He will continue to work with PT regarding rehabilitation. He does not have much pain at the site of the prior chest tube. Remainder of his review systems is negative. Objective: General: Awake, alert, oriented 3. Not in any acute distress. HEENT: Head normocephalic, atraumatic, sclera are nonicteric. Hearing is grossly intact to conversation. Tongue appears more moist today Respiratory: Once again has mild crackles noted at the left base, but otherwise remainder of the left and right lung armenta are clear to auscultation today. Cardiovascular: Distant heart sounds, I cannot perceive any rubs, gallops, or murmur. Abdomen: Soft, nontender, nondistended, no hepatosplenomegaly appreciated. Bowel sounds present. Extremities: 2+ pulses in the radial and dorsalis pedis bilaterally. No evidence of clubbing or cyanosis. Status post right BKA. He does have a wound on the left great toe. Once again, no pitting edema noted in his left lower extremity. Assessment: Acute decompensation of combined systolic and diastolic CHF with estimated ejection fraction of 25-30% and grade 2 diastolic dysfunction Metabolic encephalopathy secondary to CO2 narcosis Acute hypercarbic respiratory failure, resolved Prior suspicion for pneumonia, it does not appear that he had this, antibiotics were discontinued Chronic Atrial fibrillation Peripheral vascular disease Hypertension Type 2 diabetes mellitus Hypothyroidism Left lower extremity wound Benign prostatic hypertrophy Plan: - On clinical exam he does appear to be euvolemic, however he still does have some mild crackles in the left lung base, and he had an net positive fluid balance of approximately 500 mL. I will increase his daily dose of Lasix from 40 mg to 60 mg today and we will continue to follow. - Otherwise, no changes in the remainder of his regimen regarding his hypertensi on, diabetes, hypothyroidism, and the remainder of his home medications. - PA and lateral chest x-ray was obtained today, and he still has good aeration of both lungs, and it appears that perhaps even the small left-sided pleural effusion is improving, still awaiting official read. VS,Fishbone, I+O VS, Fishbone, I+O Laboratory Tests 11/22/20 06:30 Vital Signs Date Time Temp Pulse Resp B/P (MAP) Pulse Ox O2 Delivery O2 Flow Rate FiO2 11/22/20 08:10 72 115/53 11/22/20 05:57 98.4 18 93 Room Air 11/21/20 15:05 1.0 11/18/20 04:00 30 I&O- Last 24 Hours up to 6 AM 11/22/20 05:59 Intake Total 2330 ml Output Total 1765 ml Balance 565 ml ANTOINETTE FELIX 14, 2021 10:54
[2020-11-22] MEDS ORDERED: FUROSEMIDE 20 MG TAB PO ONE (11:00)
[2020-11-22 14:00] VITALS: BP 129/62
[2020-11-22] MEDS: ONDANSETRON 4MG/2ML VIAL IV PRN (15:58)
[2020-11-22] MEDS: RIVAROXABAN 15 MG TAB (XARELTO) PO SCH (17:46)
[2020-11-22 21:39] VITALS: BP 128/62
[2020-11-22] MEDS: PRAVASTATIN 20 MG TAB PO SCH (21:49)
[2020-11-23] MEDS: LEVALBUTEROL 1.25 MG/0.5 ML CONCENTRATE NEB NEB SCH ×4 (02:50→20:00)
[2020-11-23 06:27] VITALS: BP 129/60
[2020-11-23] MEDS: LEVOTHYROXINE 50MCG TABLET (0.05MG) PO SCH (06:30)
[2020-11-23] MEDS ORDERED: POTASSIUM CHLORIDE 10 MEQ SR TABLET PO ONE (08:00)
--- NOTE | 2020-11-23 08:52 | REP ---
INDICATION: pleural effusion COMPARISON: Multiple prior examinations dating through 11/18/2020 TECHNIQUE: PA and lateral. FINDINGS: The mediastinum and cardiac silhouette are stable and within normal limits. The lung armenta demonstrate chronic interstitial changes without acute consolidation, effusion, or pneumothorax. Previously noted effusions have resolved. The skeletal structures are intact and normal. IMPRESSION: No acute cardiopulmonary process. Previous effusions resolved. <Electronically signed by Larry Perea > 11/23/20 1955
[2020-11-23] MEDS: LEVEMIR (INSULIN DETEMIR) 1 UNITS/0.01ML SC SCH (09:00)
[2020-11-23] MEDS: HumaLOG INSULIN (NovoLOG) PER UNIT SC SCH ×4 (09:00→21:00)
[2020-11-23] MEDS ORDERED: FUROSEMIDE 20 MG TAB PO SCH (09:00)
[2020-11-23] MEDS: PANTOPRAZOLE 40MG TAB (PROTONIX) PO SCH (09:02)
[2020-11-23] MEDS: CLOPIDOGREL 75 MG TAB PO SCH (09:02)
[2020-11-23] MEDS: TAMSULOSIN 0.4 MG CAP PO SCH (09:02)
[2020-11-23] MEDS: CARVedilol 3.125 MG TAB PO SCH (09:02)
[2020-11-23 09:03] VITALS: BP 129/59
[2020-11-23] MEDS: amLODIPine 5 MG TAB PO SCH (09:03)
[2020-11-23] MEDS: DOCUSATE SODIUM 100MG CAPSULE PO SCH ×2 (09:03→21:00)
--- NOTE | 2020-11-23 11:45 | IPNPDOC ---
Text Note Date of Service The patient was seen on 11/23/20. NOTE Subjective: Patient was seen and examined this morning at bedside. Patient tells me he is extremely tired he feels exhausted he doesn't want to continue to pursue medical management anymore. He tells me he just wants to pass away peacefully and be left alone. I discussed with him the possibility of doing rehabilitation and he shook his head adamantly refused said he is not going to go anywhere he just wants to go home and pass away when his time comes. He tells me he is not in any pain but he hasn't been able to sleep. There is no acute overnight events reported to me. Objective: Constitutional: Awake, appears very weak, frail ENT: Sclera are clear. Mucosa is moist. Respiratory: Lungs diminished bilaterally without any crackles appreciated. No respiratory distress. Cardiovascular: Heart sounds are distant but no murmurs are appreciated Gastrointestinal: Abdomen is soft, non distended, non tender, BS present. Musculoskeletal: Status post right below knee amputation. Left leg no pitting edema. Mental Status: A&O x3 Assessment: Acute decompensation of combined systolic and diastolic CHF with estimated ejection fraction of 25-30% and grade 2 diastolic dysfunction Metabolic encephalopathy secondary to CO2 narcosis Acute hypercarbic respiratory failure, resolved Prior suspicion for pneumonia, it does not appear that he had this, antibiotics were discontinued Chronic Atrial fibrillation Peripheral vascular disease Hypertension Type 2 diabetes mellitus Hypothyroidism Left lower extremity wound Benign prostatic hypertrophy plan: Regarding patient's acute decompensated heart failure he is now euvolemic and continue on oral diuresis. We will continue his medications for chronic medical problems. Initially I requested an ARU screen based on recommendations by physical therapy however shortly after seeing the patient myself he is not a candidate for acute rehabilitation he will not be able to tolerate their requirements in addition he adamantly refused to do any kind of rehabilitation. He his more interested in comfort measures only. At this point he is cleared from a medical standpoint however he is weak and deconditioned and would benefit from subacute rehabilitation although he refuses. I discussed this topic extensively with him today, he talked to me about being interested in comfort measures only but wanted me to discuss this further with his daughter Althea. He tells me is his healthcare proxy. I tried to call her today but was unable to reach her. Patient was switched to ALC status. 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 He gave verbal consent for molst form and daughter signed. Will consult hospice for home vs hospice house. VS,Fishbone, I+O VS, Fishbone, I+O Vital Signs Date Time Temp Pulse Resp B/P (MAP) Pulse Ox O2 Delivery O2 Flow Rate FiO2 11/23/20 09:03 67 129/59 11/23/20 06:27 98.2 14 96 Room Air 11/21/20 15:05 1.0 11/18/20 04:00 30 I&O- Last 24 Hours up to 6 AM 11/23/20 06:00 Intake Total 710 ml Output Total 375 ml Balance 335 ml PEREZ MORENO MD Nov 23, 2020 11:45
[2020-11-23 14:00] VITALS: BP 129/84
[2020-11-23] MEDS ORDERED: LORazepam 2 MG/ML VIAL IV PRN (17:20)
[2020-11-23] MEDS ORDERED: SCOPOLAMINE 1MG TRANSDERMAL PATCH TOP PRN (17:20)
[2020-11-23] MEDS ORDERED: ONDANSETRON 4MG/2ML VIAL IV PRN (17:20)
[2020-11-23] MEDS ORDERED: ATROPINE SULFATE 1% OP SOLN 2 ML BTL SL PRN (17:20)
[2020-11-23] MEDS ORDERED: FLEET ENEMA PR PRN (17:20)
[2020-11-23] MEDS ORDERED: MORPHINE 2 MG/ML 1ML VIAL (J2270) IV PRN (17:20)
[2020-11-24] MEDS: LEVALBUTEROL 1.25 MG/0.5 ML CONCENTRATE NEB NEB SCH ×4 (02:00→20:00)
[2020-11-24] MEDS: HumaLOG INSULIN (NovoLOG) PER UNIT SC SCH ×4 (07:30→20:04)
[2020-11-24] MEDS: DOCUSATE SODIUM 100MG CAPSULE PO SCH ×2 (09:00→20:04)
[2020-11-24] MEDS: PANTOPRAZOLE 40MG TAB (PROTONIX) PO SCH (09:00)
[2020-11-24] MEDS: TAMSULOSIN 0.4 MG CAP PO SCH (09:00)
[2020-11-25] MEDS: LEVALBUTEROL 1.25 MG/0.5 ML CONCENTRATE NEB NEB SCH ×3 (01:56→19:47)
[2020-11-25] MEDS: HumaLOG INSULIN (NovoLOG) PER UNIT SC SCH ×4 (07:30→21:00)
[2020-11-25] MEDS: TAMSULOSIN 0.4 MG CAP PO SCH (09:00)
[2020-11-25] MEDS: PANTOPRAZOLE 40MG TAB (PROTONIX) PO SCH (09:00)
[2020-11-25] MEDS: DOCUSATE SODIUM 100MG CAPSULE PO SCH ×2 (09:00→21:00)
[2020-11-25] MEDS: ACETAMINOPHEN TAB 650MG DOSE (2X325MG) PO PRN (17:50)
[2020-11-26] MEDS: LEVALBUTEROL 1.25 MG/0.5 ML CONCENTRATE NEB NEB SCH ×3 (02:00→20:00)
[2020-11-26] MEDS: HumaLOG INSULIN (NovoLOG) PER UNIT SC SCH ×4 (07:30→22:49)
[2020-11-26] MEDS: TAMSULOSIN 0.4 MG CAP PO SCH (09:00)
[2020-11-26] MEDS: PANTOPRAZOLE 40MG TAB (PROTONIX) PO SCH (09:00)
[2020-11-26] MEDS: DOCUSATE SODIUM 100MG CAPSULE PO SCH ×2 (09:00→21:00)
[2020-11-26] MEDS: ACETAMINOPHEN TAB 650MG DOSE (2X325MG) PO PRN (09:33)
[2020-11-27] MEDS: LEVALBUTEROL 1.25 MG/0.5 ML CONCENTRATE NEB NEB SCH ×4 (02:00→20:00)
[2020-11-27] MEDS: HumaLOG INSULIN (NovoLOG) PER UNIT SC SCH ×4 (07:30→21:00)
[2020-11-27] MEDS: PANTOPRAZOLE 40MG TAB (PROTONIX) PO SCH (08:28)
[2020-11-27] MEDS: DOCUSATE SODIUM 100MG CAPSULE PO SCH ×2 (08:28→21:10)
[2020-11-27] MEDS: TAMSULOSIN 0.4 MG CAP PO SCH (08:28)
[2020-11-28] MEDS: LEVALBUTEROL 1.25 MG/0.5 ML CONCENTRATE NEB NEB SCH ×4 (02:00→20:00)
[2020-11-28] MEDS: HumaLOG INSULIN (NovoLOG) PER UNIT SC SCH ×4 (07:30→20:31)
[2020-11-28] MEDS: PANTOPRAZOLE 40MG TAB (PROTONIX) PO SCH (09:00)
[2020-11-28] MEDS: DOCUSATE SODIUM 100MG CAPSULE PO SCH ×2 (09:00→20:23)
[2020-11-28] MEDS: TAMSULOSIN 0.4 MG CAP PO SCH (09:00)
[2020-11-28] MEDS ORDERED: hydrOXYzine 10 MG TAB PO PRN (16:30)
[2020-11-28 21:00] VITALS: BP 128/61
[2020-11-29] MEDS: LEVALBUTEROL 1.25 MG/0.5 ML CONCENTRATE NEB NEB SCH ×4 (01:01→20:00)
[2020-11-29] MEDS: HumaLOG INSULIN (NovoLOG) PER UNIT SC SCH ×4 (07:30→20:28)
[2020-11-29] MEDS: PANTOPRAZOLE 40MG TAB (PROTONIX) PO SCH (09:00)
[2020-11-29] MEDS: TAMSULOSIN 0.4 MG CAP PO SCH (09:00)
[2020-11-29] MEDS: DOCUSATE SODIUM 100MG CAPSULE PO SCH ×2 (09:00→20:28)
[2020-11-30] MEDS: LEVALBUTEROL 1.25 MG/0.5 ML CONCENTRATE NEB NEB SCH ×4 (01:04→19:16)
[2020-11-30] MEDS: HumaLOG INSULIN (NovoLOG) PER UNIT SC SCH (07:30)
[2020-11-30] MEDS: PANTOPRAZOLE 40MG TAB (PROTONIX) PO SCH (08:38)
[2020-11-30] MEDS: DOCUSATE SODIUM 100MG CAPSULE PO SCH (08:38)
[2020-11-30] MEDS: TAMSULOSIN 0.4 MG CAP PO SCH (08:38)
[2020-11-30] MEDS ORDERED: ATIV1TAB10 PO (14:05)
[2020-11-30] MEDS ORDERED: HYOS125TA PO (14:05)
[2020-11-30] MEDS ORDERED: MORP20SO3 PO (14:05)
[2020-11-30] MEDS: SIMETHICONE 80MG CHEW TAB PO PRN (18:52)
[2020-11-30] MEDS: MOM 30ML SUSPENSION UDC PO PRN (23:30)
[2020-12-01] MEDS: SIMETHICONE 80MG CHEW TAB PO PRN ×2 (01:40→12:22)
[2020-12-01] MEDS: LEVALBUTEROL 1.25 MG/0.5 ML CONCENTRATE NEB NEB SCH ×4 (02:00→20:00)
[2020-12-02] MEDS: LEVALBUTEROL 1.25 MG/0.5 ML CONCENTRATE NEB NEB SCH ×3 (01:03→13:26)
[2020-12-02] MEDS ORDERED: SIMETHICONE 80MG CHEW TAB PO ONE (09:55)
[2020-12-02] MEDS: MORPHINE 2 MG/ML 1ML VIAL (J2270) IV ONE ×2 (09:55→10:47)
--- NOTE | 2020-12-02 12:26 | DS.PDOC ---
Discharge Summary General Date of Admission Nov 16, 2020 at 01:50 Date of Discharge 12/02/20 home w hospice make up operator dnr dni Discharge Summary PROCEDURES PERFORMED DURING STAY: Chest tube placement by Dr. Joe Cast SHOE STITCHER: Thoracic surgeon Dr. Joe Cast vector control specialist Dr. Juan Carlos robbins DISCHARGE DIAGNOSES: Acute decompensation of combined systolic and diastolic CHF with estimated ejection fraction of 25-30% and grade 2 diastolic dysfunction Metabolic encephalopathy secondary to CO2 narcosis Acute hypercarbic respiratory failure, resolved Prior suspicion for pneumonia, it does not appear that he had this, antibiotics were discontinued Chronic Atrial fibrillation Peripheral vascular disease Hypertension Type 2 diabetes mellitus Hypothyroidism Left lower extremity wound Benign prostatic hypertrophy Large right-sided pleural effusion, resolved with a chest tube. Severe peripheral vascular disease. Necrotic right toe. DISCHARGE MEDICATIONS: Please see below. ALLERGIES: Please see below. HOSPITAL COURSE: 89-year-old male history of hypertension, diabetes, peripheral vascular disease status post femoral-popliteal bypass, status post below knee right amputation, hypothyroidism, peripheral neuropathy, BPH, GERD, atrial fibrillation who presents because of a 3 week history of worsening shortness of breath admitted for large pleural effusion secondary to systolic congestive heart failure exacerbation. Thoracic surgeon Dr. Joe Cast was consulted status post chest tube placement with resolution of the effusion but worsening dysfunction requiring continued diuresis which slight worsening in his renal failure. His left big toe was evaluated via telemedicine by sales and in home delivery specialist Dr. Jarquin dressing changes were done. Patient continued to have significant debility and has refused further care and management for his congestive heart failure he was made DO NOT RESUSCITATE DO NOT INTUBATE comfort measures only according to his wishes he is going home with hospice today. PHYSICAL EXAMINATION ON DISCHARGE: VITAL SIGNS: Please see below. General: Awake, alert, oriented 3. Not in any acute distress. HEENT: Moist mucous membranes positive JVD no thyromegaly Respiratory: Diminished bilateral crackles Cardiovascular: S1-S2 irregularly irregular Abdomen: Soft, nontender,distended, no hepatosplenomegaly appreciated. Bowel sounds present. Extremities: 2+ pulses in the radial and dorsalis pedis bilaterally. No evidence of clubbing or cyanosis. Status post right BKA. He does have a wound on the left great toe. LABORATORY DATA: Please see below. IMAGING: See below PROGNOSIS: Poor ACTIVITY: Walker with assistance DIET: Regular DISCHARGE PLAN: Home with hospice DNR/DNI comfort measures only ITEMS TO FOLLOWUP ON ON OUTPATIENT: Primary care physician to manage all hospice needs after hospital discharge DISCHARGE CONDITION: Guarded TIME SPENT ON DISCHARGE: 30 minutes. Vital Signs/I&Os Vital Signs Date Time Temp Pulse Resp B/P (MAP) Pulse Ox O2 Delivery O2 Flow Rate FiO2 11/28/20 21:00 98.1 67 17 128/61 (83) 95 Room Air I&O- Last 24 Hours up to 6 AM 12/02/20 05:59 Intake Total 990 ml Output Total 1100 ml Balance -110 ml Discharge Medications Scheduled PRN Hyoscyamine Sulfate (Hyoscyamine Sulfate) 0.125 Mg Tab.subl, 0.125 MG PO Q4HP PRN for TERMINAL SECRETIONS Use sublingually if unable to swallow Lorazepam (Ativan) 0.5 Mg Tablet, 0.5 MG PO Q4HP PRN for ANXIETY/AGITATION Use sublingually if unable to swallow Morphine Sulfate (Morphine Sulfate) 100 Mg/5 Ml Solution, 0.25-1 ML PO Q2H PRN for PAIN OR DYSPNEA Use sublingually if unable to swallow Allergies Coded Allergies: simvastatin (Verified Allergy, Intermediate, unknown, 11/15/20) AGATA TILLMAN MD Dec 02, 2020 12:26
== END 2020-12-02 14:44 | disposition hospice, home (50) | DRG 291 ==
LOC: M ED 23:13 → M ED INP 11-16 01:50 → ENRESERV 11-16 11:26 → M PCU 11-16 12:55 → M ICU 11-16 18:11 → M MS5PR 11-21 15:05
PROVIDERS: ADMIT Family Medicine; ATTEND General Practice
PROC: 0W9930Z Drainage of Right Pleural Cavity with Drainage Device, Percutaneous Approach (ICD-10-PCS; principal; 2020-11-16)
DX: I11.0 Hypertensive heart disease with heart failure (principal); J96.02 Acute respiratory failure with hypercapnia; G93.41 Metabolic encephalopathy; J90 Pleural effusion, not elsewhere classified; I48.20 Chronic atrial fibrillation, unspecified; E11.52 Type 2 diabetes mellitus with diabetic peripheral angiopathy with gangrene; I50.43 Acute on chronic combined systolic (congestive) and diastolic (congestive) heart failure; E03.9 Hypothyroidism, unspecified; E11.42 Type 2 diabetes mellitus with diabetic polyneuropathy; N40.0 Benign prostatic hyperplasia without lower urinary tract symptoms; K21.9 Gastro-esophageal reflux disease without esophagitis; Z66 Do not resuscitate; Z51.5 Encounter for palliative care; Z89.511 Acquired absence of right leg below knee; Z87.891 Personal history of nicotine dependence; Z20.822 Contact with and (suspected) exposure to COVID-19; Z79.02 Long term (current) use of antithrombotics/antiplatelets; Z79.01 Long term (current) use of anticoagulants; Z79.899 Other long term (current) drug therapy; Z88.8 Allergy status to other drugs, medicaments and biological substances; Z98.62 Peripheral vascular angioplasty status